=== PATIENT | female | born 1960 | race Caucasian/White ===

== ENCOUNTER 2019-05-09 15:00 | Outpatient (RCR) | payer MEDICARE, SELFPAY ==
--- NOTE | 2019-03-06 13:14 | HP.PTEVAL ---
Patient's Visit Information ISABELA LOZANO is a 58 year old F referred to Physical Therapy by SHIN ALEX with a diagnosis of recurrent falls, brain tumor. Date of Evaluation: 03/06/19 Physical Therapist: Tim Jones, ROSAT, OCS, CSCS - Visit Plan Frequency: 2x /Week Duration: 4-6 Weeks Plan: 2x/week for 4-6 weeks for. 1. LE and postural strength teaching HEP to do at home I. 2. Balance exercises for functional, steps, VOR, ec, foam. - Subjective Findings: Not sure why she is back here. Falling alot. Not sure why. No dizzyness. No unusual numbness in LE. No AD needed. Last fall was two days ago, not sure what happened. Sleeps OK. Activity is sitting around all day. No regular exercises then says she walks daily but not sure how long. Not employed. Had brain tumor 2002 adn 2003. Been falling ever since. Does not want to use cane or walker. Has boat and falls on it when they are cruising around [place]. - Objective Walks with slightly wide MARIANO but I on firm flat surface with light. Trasnfers I without UE. Steps require handrail but can go reciprocally. VOR walking is very challenging. R LE strength adn UE strength 4-, 4/5 L. Full aROM LE adn UE. C/s aROM WFL adn painfree. Sensation LE WNL to gross light touch. Coordination to reciprocal toe and heel tap minor defictis. Heel to kirkpatrick is good. - Balance Scores Functional Gait Assessment Score: 22 % Disability: 26.6700 CATSIB Score (Max score 120 seconds): 94 - Goals Goal 1:: I approp HEP for LE/postural strength and balance. Goal Time Frame: 4-6 Weeks Goal 2:: FGA to reduce fall risk. Goal Time Frame: 4-6 Weeks Goal 3:: Patient walk with head turns and nods VOR without LOB and ec without LOB. Goal Time Frame: 4-6 Weeks Goal 4:: Encourage pt to use a walking stick in dangerous situations of darkness and /or uneven gorund. Goal Time Frame: 4-6 Weeks - Rehabilitation Potential Physical Therapy Diagnosis: balance deficits and strength deficits leading to increase risk of falls. Rehabilitation Potential: Fair - Anticipated Interventions Patient/Client Instruction: Educate patient on: Condition, Plan of Care For the Purpose of:: To increase tolerance to activity/condition/position, To improve ability of physical actions for home/community/work/leisure Therapeutic Exercise to Include: Strength training, Balance training, Postural training, Gait and locomotor training For the Purpose of:: To increase tolerance to activity/condition/position, To improve ability of physical actions for home/community/work/leisure, To improve gait and locomotor functions, To improve safety Thank you for the opportunity to evaluate your patient. For Medicare and Medicare HMO plans, please review the plan of care and approve it. It will need to be FAXED BACK to us at [phone] for Medicare purposes. For Medicare only, by signing this I certify the plan of care. Please let me know if there are questions or concerns regarding this plan of care. Physician Signature: Date:
--- NOTE | 2019-04-12 17:01 | HP.PTREVAL_ITS ---
SHIN ALEX, It has been my pleasure to treat ISABELA LOZANO over the last 10 visits for recurrent falls, brain tumor. Please see the progress note below for an update on the physical therapy plan of care! Subjective: Fell off stationary bike and injured R eye. not sure why or how she fell off. Steps up and down are easier. No other falls. Feels like still needs to work on getting on and off the boat. Stepping off dock onto boat over the water is scary and challenging. Doing row, marching, hr/tr, lateral step overs. Objective/Function: FGA similar to initial visit however strength going up and down steps improved. Descending steps still very scary for patient. Also has trouble stepping over object to different level. Also vertical head movements and foam stance still tough. Appropriate to continue toward upper level balance goals with fair prognosis. Plan Plan: 2x/week for 4 weeks . Pt to do strengthening at home. Please focus in PT on. 1. foam balance. 2. head movement balance. 3. step over object onto different level. 4. descending steps without UE. Goals Goal 1:: I approp HEP for LE/postural strength and balance. Goal Time Frame: 4-6 Weeks Goal Progress: strength Goal 2:: FGA to reduce fall risk. Goal Time Frame: 4-6 Weeks Goal Progress: needs focus Goal 3:: Patient walk with head turns and nods VOR without LOB and ec without LOB. Goal Time Frame: 4-6 Weeks Goal Progress: Progressing Goal 4:: Encourage pt to use a walking stick in dangerous situations of darkness and /or uneven gorund. Goal Time Frame: 4-6 Weeks Goal Progress: not desired anymore. Anticipated Interventions Patient/Client Instruction: Educate patient on: Condition, Plan of Care For the Purpose of:: To increase tolerance to activity/condition/position, To improve ability of physical actions for home/community/work/leisure Therapeutic Exercise to Include: Strength training, Balance training, Postural training, Gait and locomotor training For the Purpose of:: To increase tolerance to activity/condition/position, To improve ability of physical actions for home/community/work/leisure, To improve gait and locomotor functions, To improve safety Please do not hesitate to contact me at [phone] by phone or Fax: if you have questions or concerns regarding this new plan of care! Sincerely, Tim Jones, DPT, OCS, CSCS
--- NOTE | 2019-05-09 15:15 | HP.PTDCSUM ---
HP - PT D/C Summary It has been my pleasure to treat ISABELA LOZANO under orders from SHIN ALEX, for the diagnosis of recurrent falls, brain tumor for a total of 17 visit(s). Discharge Date: 05/09/19 Please see the following information for a summary of their discharge status. - Subjective Subjective: Climbed on boat sideways without issue. Still doesn't like forward and backward. Steps don't feel great. Has skinny steps to basement with railing and goes sideways. Doing HEP daily. - Overall Improvement % Improvement: 90 - Objective Objective/Function: +5 on FGA. Steps reciprocally ascending without rail, descending requires rail for confidence. Stepping over object fairly easy. Pt happy with progress and much better balance. - Goals Goal 1:: I approp HEP for LE/postural strength and balance. Goal Progress: Goal Met Goal 2:: FGA to reduce fall risk. Goal Progress: Goal Met Goal 3:: Patient walk with head turns and nods VOR without LOB and ec without LOB. Goal Progress: Goal Met Goal 4:: Encourage pt to use a walking stick in dangerous situations of darkness and /or uneven gorund. Goal Progress: not desired anymore. - Plan Plan: D/C - D/C Information Discharge Comments: Pt doing well and climbing on boat with confidence. Much better baalnce and will continue via HEP. If there are questions or concerns regarding this patient's physical therapy, please feel free to call me at [phone]. Thank you for the referral of this patient. Sincerely, Tim Jones, DPT, OCS, CSCS
== END 2019-05-09 19:00 | disposition home or self-care (01) ==
LOC: PT 15:00
PROVIDERS: Family Provider Family Medicine; PCP Family Medicine
DX: R26.9 Unspecified abnormalities of gait and mobility (principal); R29.6 Repeated falls; Z87.898 Personal history of other specified conditions
CPT/HCPCS: 97110; 97116; 97162; 97530

== ENCOUNTER 2022-09-14 09:30 | Outpatient (RCR) | payer MEDICARE, SELFPAY ==
[2022-08-17 09:45] VITALS: BP 122/72; PULSE 107; RESP 16; TEMP 36.2; BMI 22.2
--- NOTE | 2022-08-17 12:52 | PCM.WC.HP ---
History of Present Illness Date of Service: 08/17/22 Chief Complaint: Traumatic wound of the right leg History of Wound: This is a 61-year-old female who presents with a traumatic wound on her right medial leg. The injury occurred on August 08, 2022. The patient had a mishap while using a treadmill. She fell, impacting the medial aspect of her right medial leg, just below the knee. She sustained a penetrating injury and has been treated by her primary care physician since that time. She has most recently been using Silvadene topically on a daily basis. She denies fevers, sweats, and chills. Antibiotics have not been prescribed. The wound has failed to show improvement since it occurred. 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 Home Medications armodafinil 250 mg tablet 250 mg PO DAILY 08/17/22 [History Last Taken Unknown] Surgical History History of brain surgery History of cholecystectomy History of total abdominal hysterectomy [facility] Social History Smoking Status: Never smoker Vital Signs Vital Signs Vital Signs: 08/17/22 09:45 Temperature 97.2 F L Temperature Source Temporal Pulse Rate 107 H Respiratory Rate 16 Blood Pressure 122/72 H Blood Pressure Mean 88 Blood Pressure Source Monitor Blood Pressure Position Sitting Blood Pressure Location Left Arm Oxygen Delivery Method Room Air Weight Weight: 140 lb Body Mass Index (BMI) 22.2 Physical Exam Const alert, oriented x3, no apparent distress, average body habitus and well nourished Constitutional Narrative: The patient is alert and oriented. She appears to be cognitively intact. However, an expressive speech aphasia is identified. General Appearance: cooperative, comfortable, well kempt and well developed Orientation / Consciousness: awake, oriented to person, oriented to place and oriented to time HEENT normocephalic and head/scalp atraumatic Head and Scalp: normal to inspection, normocephalic and atraumatic External Ear: external ears normal Eyes PERRL and EOMs intact bilaterally General Eye: normal appearance of both eyes Resp normal respiratory effort, normal air movement, no retractions and no use of accessory muscles Effort and Inspection: able to speak in complete sentences Extremity no calf tenderness General Extremity: Negative for clubbing or cyanosis Skin Wound Narrative: No significant swelling or edema are noted in the patient's lower extremities. A large necrotic wound is noted on the medial aspect of the right lower extremity, just below the knee. Dimensions are documented elsewhere. There is no obvious sign of infection or cellulitis. There is a large amount of nonviable and gangrenous material. There is no drainage. There is no odor. Neuro oriented x3, CN's II-XII intact bilaterally and moves all extremities Neuro Narrative: An expressive speech aphasia is noted. Sensorium / Orientation: awake, alert, oriented to person, oriented to place and oriented to time Psych Appearance: grossly normal and appropriate Attitude: calm Activity / Motor Behavior: appropriate eye contact Speech: normal speech Mood & Affect: euthymic mood Thought Process: normal thought process Thought Content: normal thought content Attention / Concentration: attention grossly intact Debridement Note Debridement Note Wound debrided: Right medial lower extremity Laterality: Right Type of Debridement: Excisional debridement Anesthesia Used: 5% Lidocaine Gel and Cetacaine Depth: Down to and including healthy tissue and in the subcutaneous layer Percentage of wound debrided: 100 Instrument Used: 5mm curette and #15 blade Severity: Fat Layer Exposed Amount of bleeding with debridement: Mild Bleeding Controlled with: Compression and gauze Patient tolerated procedure: Patient tolerated procedure well Debridement Free Text: A large amount of frankly necrotic and gangrenous material was noted to involve 95% of the wound. Peripherally, there is a ring of pink, healthy, granulation tissue. An effort was made using a 5 mm curette to remove as much of the necrotic and nonviable material as possible. However, the gangrenous material was resistant to removal. Therefore, a 15 scalpel blade was used to score the necrotic portion of the wound, anticipating that collagenase Santyl would be used as an enzymatic debriding agent, facilitating the penetration of the gangrenous cap. Post-Debridement Measurements and Additional Note: Post-Debridement Measurements/Treatment JODI - Nurse 1 - General Ulcer Assessment Start: 08/17/22 09:45 Freq: Status: Active Protocol: JERICHO Activity Type Activity Date Activity User E-sign Co-sign Detail Recorded Client Recorded Date Recorded By Document 08/17/22 09:45 MW [id number] 08/17/22 10:07 08/17/22 09:45 WC - Today's Visit Information Type of service Follow-up Visit (Physician/GROUND SERVICES INSTRUCTOR ) Arrival Mode Ambulatory Transfer Assistance None Accompanied by Patient Identification Verified (Name & Yes ) Patient Requires Transmission-Based No Precautions Height and Weight Height 5 ft 6.5 in Weight 140 lb Weight in Pounds 140.0 lbs Weight Measurement Method Stated by Patient Body Mass Index (BMI) 22.2 BMI Classification Normal BSA - Marcie 1.73 Vital Signs Temperature (97.8 F-99.1 F) 97.2 F L Temperature Source Temporal Pulse Rate (60-100) 107 H Pulse Location Monitor Respiratory Rate (12-18) 16 Respiratory rate source Observation Oxygen Delivery Method Room Air Blood Pressure (90/60-120/80) 122/72 H Blood Pressure Mean 88 Source Monitor Position Sitting Blood Pressure Location Left Arm History Since Last Visit- (Skip if this is Patient's initial visit) Left Footwear Regular Shoe Right Footwear Regular Shoe Pain Scale: 0-10 Numeric Is Patient Pain Free? Yes Communication Assessment Preferred language Norwegian Manager Professional Development Required No Able to Read Yes Able to Write Yes Communication Tools None Caregiver Communication Skills No Impairment Impairment Right Hearing Abillity Normal Left Hearing Abillity Normal Visual Assistive Devices None Teaching Assessment Preferences Verbal,Written, Audio/Visual, Demonstration Barriers to Learning None Readiness To Learn Excellent Willingness to Engage in Self Management High Activies Readiness to Engage in Self Management High Activities Anxiety Level Calm Cooperation Cooperative Perception Coherent Interest in Health Problem Asks Questions Education Importance Denies Need Does Patient Smoke tobacco or other Yes substances Smoking Status Never smoker Is Patient Diabetic No Functional Assessment Recent Decline in Ability to Perform Denies Any Declines Culture/Episcopal/Pretzel Cooker Cultural/Episcopal Needs that may affect No Treatment Plan Would you allow our hospital nursing education specialist to No meet you for the purpose of spiritual/ emotional support? Pretzel Cooker to contact place of methodist No Teaching: Wound Center Dressing Your Wound -Person Taught Patient -Teaching Method Discussion -Response to teaching Verbalize understanding - Nurse 1 - General Ulcer Measurement Start: 08/17/22 09:45 Freq: Status: Active Protocol: Activity Type Activity Date Activity User E-sign Co-sign Detail Recorded Client Recorded Date Recorded By Document 08/17/22 09:45 MW [id number] 08/17/22 10:07 MW 08/17/22 09:45 Wound Center Nurse 1 #1 right medial LE -Combined with other wound No -Current Size (cm) - Length 6.5 -Current Size (cm) - Width 8.5 -Current Size (cm) - Depth 0.1 -Total Square Cm 55.25 -Date of Last Picture (Recall this 08/17/22 field) -Photo Taken Yes -Epithelialization None Present -Tunneling No -Undermining/Tunneling No -Circular Undermining No -Exudate Amt Medium -Exudate Type Serosanguineous -Wound Margin Flat & Intact -Granulation Amt Small (1-33%) -Granulation Quality Meyers -Slough/Fibrin Yes -Necrosis Amt Large (67-100%) -Necrotic Tissue Type Adherent Slough -Structure Exposed N/A -Texture (Krupa-wound Skin Appearance) Assessed, Localized Edema -Moisture (Krupa-wound Skin Appearance) No Abnormality, Assessed -Color (Krupa-wound Skin Appearance) Assessed, Erythema -Temperature (Krupa-wound Skin No Abnormality Appearance) (Pt Warm) -Tenderness on Palpation (Krupa-wound Yes Skin Appearance) -Ulcer Cleansing Rinsed/ Irrigated with Saline -Foul Odor after Cleansing No -Anesthetic Used 4% Lidocaine Solution Lower Limb Edema Present No Right Calf (cm) 37.0 Right Ankle (cm) 21.5 Left Calf (cm) 36.5 Left Ankle (cm) 21.0 WC - Nurse 2 - General Ulcer CM Notes Start: 08/17/22 09:45 Freq: Status: Active Protocol: Activity Type Activity Date Activity User E-sign Co-sign Detail Recorded Client Recorded Date Recorded By Document 08/17/22 12:10 MARILIN [id number] 08/17/22 12:11 PL 08/17/22 12:10 Wound Center Nurse 2 #1 right medial LE -Time 10:21 -Correct Patient Yes -Correct Side, Site, Position Yes -Correct Procedure Yes -Procedure Performed Yes -Type of Procedure Debridement -Clinical Debridement Subcutaneous -Tissue Removed Subcutaneous -Post Debridement (cm) - Length 6.5 -Post Debridement (cm) - Width 8.5 -Post Debridement (cm) - Depth 0.1 -Total Square (Post) (cm) 55.25 -Area of Debridement (cm) - Length 6.5 -Area of Debridement (cm) - Width 8.5 -Total Square (Area) (cm) 55.25 -Tunneling No -Undermining/Tunneling No -Circular Undermining No -Wound/Ulcer Outcome Not Healed -Ulcer Cleansing Rinsed/ Irrigated with Saline -Foul Odor after Cleansing No -Bioengineered Tissue No -Bleeding Controlled with Pressure -Treatment Response Procedure Tolerated Well -Debridement - Subq, 1st 20sq cm Yes -Debridement, SubQ, ea addt'l 20sq cm 2 or part thereof Pain Scale: 0-10 Numeric Is Patient Pain Free? Yes - Nurse 3 - General Ulcer D/C NN Start: 08/17/22 09:45 Freq: Status: Active Protocol: Activity Type Activity Date Activity User E-sign Co-sign Detail Recorded Client Recorded Date Recorded By Document 08/17/22 10:34 DL Desktop 08/17/22 10:37 DL 08/17/22 10:34 Wound Care Nurse 3 #1 right medial LE -Ulcer Cleansing Rinsed/ Irrigated with Saline -Foul Odor after Cleansing No -Other Dressing hydrogel today in clinic -Primary Dressing Covered/Secured with Dry Gauze & Roll Gauze, Secured with Tape Treatment Response Procedure Tolerated Well Pain Scale: 0-10 Numeric Is Patient Pain Free? Yes WC - Visit Discharge Discharge Condition Stable Ambulatory Status Ambulatory Transportation Private Auto Notes: Pt to obtain Santyl and start when available at home. Assessment/Plan Assessment/Plan (1) Leg wound, right: CODE(S): S81.801A - Unspecified open wound, right lower leg, initial encounter QUALIFIERS: Encounter type: initial encounter Qualified Code(s): S81.801A - Unspecified open wound, right lower leg, initial encounter (2) Necrosis: CODE(S): I96 - Gangrene, not elsewhere classified (3) GERD (gastroesophageal reflux disease): CODE(S): K21.9 - Gastro-esophageal reflux disease without esophagitis (4) Arthritis: CODE(S): M19.90 - Unspecified osteoarthritis, unspecified site (5) Asthma: CODE(S): J45.909 - Unspecified asthma, uncomplicated (6) History of brain cancer in adulthood: CODE(S): Z85.841 - Personal history of malignant neoplasm of brain (7) History of malignant neoplasm of brain in adulthood: CODE(S): Z85.841 - Personal history of malignant neoplasm of brain (8) History of seizures: CODE(S): Z87.898 - Personal history of other specified conditions (9) Expressive aphasia: CODE(S): R47.01 - Aphasia (10) TMJ (temporomandibular joint disorder): CODE(S): M26.609 - Unspecified temporomandibular joint disorder, unspecified side (11) 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 Upon presentation, a large amount of necrotic and gangrenous material was noted to cover the traumatic wound. There is no evidence of infection or cellulitis. Initial debridement attempted to remove as much of the frankly necrotic and nonviable material as possible. However, the gangrenous cap was very resistant to mechanical removal by means of debridement. Therefore, the gangrene was scored with a scalpel blade, to enhance the penetration of enzymatic debridement. We are to implement the use of collagenase Santyl topically, which will be applied on a daily basis. Patient has been provided a prescription for such, with the appropriate instructions for application. The patient is to return in 1 week for reassessment. The goal will be to remove the necrotic and gangrenous material at the surface of the patient's wound, following which other options for enhancing wound healing will be considered. Total time: 55 minutes
[2022-08-24 09:18] VITALS: BP 113/56; PULSE 80; TEMP 36.4; BMI 22.2
--- NOTE | 2022-08-24 09:29 | PCM.WC.HP ---
History of Present Illness Date of Service: 08/24/22 Chief Complaint: Traumatic wound of the right leg History of Wound: This is a 61-year-old female who presents with a traumatic wound on her right medial leg. The injury occurred on August 08, 2022. The patient had a mishap while using a treadmill. She fell, impacting the medial aspect of her right medial leg, just below the knee. She sustained a penetrating injury and has been treated by her primary care physician since that time. She had most recently been using Silvadene topically on a daily basis. She denies fevers, sweats, and chills. Antibiotics have not been prescribed. The wound failed to show improvement since it occurred. 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 Home Medications armodafinil 250 mg tablet 250 mg PO DAILY 08/17/22 [History Last Taken Unknown] Surgical History History of brain surgery History of cholecystectomy History of total abdominal hysterectomy Hx of LASIK Social History Smoking Status: Never smoker Vital Signs Vital Signs Vital Signs: 08/24/22 09:18 Temperature 97.5 F L Temperature Source Oral Pulse Rate 80 Blood Pressure 113/56 L Blood Pressure Mean 75 Blood Pressure Source Monitor Blood Pressure Position Semi-Fowlers Blood Pressure Location Right Arm Weight Weight: 140 lb Body Mass Index (BMI) 22.2 Physical Exam Const alert, oriented x3, no apparent distress, average body habitus and well nourished Constitutional Narrative: The patient is alert and oriented. She appears to be cognitively intact. However, an expressive speech aphasia is identified. General Appearance: cooperative, comfortable, well kempt and well developed Orientation / Consciousness: awake, oriented to person, oriented to place and oriented to time HEENT normocephalic and head/scalp atraumatic Head and Scalp: normal to inspection, normocephalic and atraumatic External Ear: external ears normal Eyes PERRL and EOMs intact bilaterally General Eye: normal appearance of both eyes Resp normal respiratory effort, normal air movement, no retractions and no use of accessory muscles Effort and Inspection: able to speak in complete sentences Extremity no calf tenderness General Extremity: Negative for clubbing or cyanosis Skin Wound Narrative: No significant swelling or edema are noted in the patient's lower extremities. A large necrotic wound is noted on the medial aspect of the right lower extremity, just below the knee. Dimensions are documented elsewhere. There is no obvious sign of infection or cellulitis. There is a large amount of nonviable and gangrenous material, yellow in color. There is no drainage. There is no odor. Neuro oriented x3, CN's II-XII intact bilaterally and moves all extremities Neuro Narrative: An expressive speech aphasia is noted. Sensorium / Orientation: awake, alert, oriented to person, oriented to place and oriented to time Psych Appearance: grossly normal and appropriate Attitude: calm Activity / Motor Behavior: appropriate eye contact Speech: normal speech Mood & Affect: euthymic mood Thought Process: normal thought process Thought Content: normal thought content Attention / Concentration: attention grossly intact Debridement Note Debridement Note Wound debrided: Right medial lower extremity Laterality: Right Type of Debridement: Excisional debridement Anesthesia Used: 5% Lidocaine Gel and Cetacaine Depth: Down to and including healthy tissue and in the subcutaneous layer Percentage of wound debrided: 50 Instrument Used: 5mm curette Severity: Fat Layer Exposed Amount of bleeding with debridement: Mild Bleeding Controlled with: Compression and gauze Patient tolerated procedure: Patient tolerated procedure well Debridement Free Text: A large amount of frankly necrotic and gangrenous material is noted to involve 98% of the wound. Peripherally, there is a ring of pink, healthy, granulation tissue. An effort was made using a 5 mm curette to remove as much of the necrotic and nonviable material as possible. However, the gangrenous material was resistant to removal. In addition, due to the patient's neurological impairments, she vastly overreacted to the discomfort encountered during the debridement process, and was withdrawing from the curette, and batting away attempts at debridement. Therefore, efforts at a sufficient debridement and removal of the necrotic material were impaired. The necrotic material is extremely adherent, and not easily removed. Post-Debridement Measurements and Additional Note: Post-Debridement Measurements/Treatment WC - Nurse 1 - General Ulcer Assessment Start: 08/17/22 09:45 Freq: Status: Active Protocol: WC.LOWEXT Activity Type Activity Date Activity User E-sign Co-sign Detail Recorded Client Recorded Date Recorded By Document 08/17/22 09:45 MW [id number] 08/17/22 10:07 MW Document 08/24/22 09:18 KR [id number] 08/24/22 09:20 KR 08/17/22 08/24/22 09:45 09:18 WC - Today's Visit Information Type of service Follow-up Visit Follow-up Visit (Physician/REAL ESTATE VALUER (Physician/REAL ESTATE VALUER ) ) Arrival Mode Ambulatory Ambulatory Transfer Assistance None Accompanied by Patient Identification Verified (Name & Yes Yes ) Patient Requires Transmission-Based No Precautions Height and Weight Height 5 ft 6.5 in Weight 140 lb Weight in Pounds 140.0 lbs Weight Measurement Method Stated by Patient Body Mass Index (BMI) 22.2 22.2 BMI Classification Normal Normal BSA - Marcie 1.73 Vital Signs Temperature (97.8 F-99.1 F) 97.2 F L 97.5 F L Temperature Source Temporal Oral Pulse Rate (60-100) 107 H 80 Pulse Location Monitor Monitor Respiratory Rate (12-18) 16 Respiratory rate source Observation Oxygen Delivery Method Room Air Blood Pressure (90/60-120/80) 122/72 H 113/56 L Blood Pressure Mean 88 75 Source Monitor Monitor Position Sitting Semi-Fowlers Blood Pressure Location Left Arm Right Arm History Since Last Visit- (Skip if this is Patient's initial visit) Have you changed medications since your No last visit? Any new allergies or adverse reactions No Had a fall/change in ADL's that may No increase risk of falls Signs or symptoms of abuse and/or No neglect since last visit Have you been in the hospital since your No last visit? Has dressing in place as prescribed Yes Has compression in place as prescribed No Has offloadiing in place as prescribed N/A Experienced any changes in pain level or No management Left Footwear Regular Shoe Regular Shoe Right Footwear Regular Shoe Regular Shoe Pain Scale: 0-10 Numeric Is Patient Pain Free? Yes Yes Communication Assessment Preferred language [facility] Re[facility] Required No Able to Read Yes Able to Write Yes Communication Tools None Caregiver Communication Skills No Impairment Impairment Right Hearing Abillity Normal Left Hearing Abillity Normal Visual Assistive Devices None Teaching Assessment Preferences Verbal,Written, Audio/Visual, Demonstration Barriers to Learning None Readiness To Learn Excellent Willingness to Engage in Self Management High Activies Readiness to Engage in Self Management High Activities Anxiety Level Calm Cooperation Cooperative Perception Coherent Interest in Health Problem Asks Questions Education Importance Denies Need Does Patient Smoke tobacco or other Yes substances Smoking Status Never smoker Is Patient Diabetic No Functional Assessment Recent Decline in Ability to Perform Denies Any Declines Culture/Uatsdin/Video Game Script Writer Cultural/Uatsdin Needs that may affect No Treatment Plan Would you allow our hospital printed circuit boards solder leveler to No meet you for the purpose of spiritual/ emotional support? Video Game Script Writer to contact place of confucianism No Teaching: Wound Center Dressing Your Wound -Person Taught Patient -Teaching Method Discussion -Response to teaching Verbalize understanding WC - Nurse 1 - General Ulcer Measurement Start: 08/17/22 09:45 Freq: Status: Active Protocol: Activity Type Activity Date Activity User E-sign Co-sign Detail Recorded Client Recorded Date Recorded By Document 08/17/22 09:45 MW [id number] 08/17/22 10:07 MW Document 08/24/22 09:18 KR [id number] 08/24/22 09:20 KR 08/17/22 08/24/22 09:45 09:18 Wound Center Nurse 1 #1 right medial LE -Combined with other wound No -Current Size (cm) - Length 6.5 6 -Current Size (cm) - Width 8.5 9.5 -Current Size (cm) - Depth 0.1 0.2 -Total Square Cm 55.25 57.0 -Date of Last Picture (Recall this 08/17/22 field) -Photo Taken Yes -Epithelialization None Present -Tunneling No -Undermining/Tunneling No -Circular Undermining No -Exudate Amt Medium Large -Exudate Type Serosanguineous Yellow/Green -Wound Margin Flat & Intact Distinct, Outline Attached -Granulation Amt Small (1-33%) Large (67-100%) -Granulation Quality [place] -Slough/Fibrin Yes -Necrosis Amt Large (67-100%) Large (67-100%) -Necrotic Tissue Type Adherent Slough Adherent Slough -Structure Exposed N/A -Texture (Krupa-wound Skin Appearance) Assessed, Assessed, Localized Edema Scarring -Moisture (Krupa-wound Skin Appearance) No Abnormality, No Abnormality, Assessed Assessed -Color (Krupa-wound Skin Appearance) Assessed, No Abnormality, Erythema Assessed -Temperature (Krupa-wound Skin No Abnormality No Abnormality Appearance) (Pt Warm) (Pt Warm) -Tenderness on Palpation (Krupa-wound Yes No Skin Appearance) -Ulcer Cleansing Rinsed/ Rinsed/ Irrigated with Irrigated with Saline Saline -Foul Odor after Cleansing No No -Anesthetic Used 4% Lidocaine 4% Lidocaine Solution Solution,5% Lidocaine Gel Lower Limb Edema Present No Right Calf (cm) 37.0 Right Ankle (cm) 21.5 Left Calf (cm) 36.5 Left Ankle (cm) 21.0 WC - Nurse 2 - General Ulcer CM Notes Start: 08/17/22 09:45 Freq: Status: Active Protocol: Activity Type Activity Date Activity User E-sign Co-sign Detail Recorded Client Recorded Date Recorded By Document 08/17/22 12:10 PL [id number] 08/17/22 12:11 PL 08/17/22 12:10 Wound Center Nurse 2 -Time 10:21 -Correct Patient Yes -Correct Side, Site, Position Yes -Correct Procedure Yes -Procedure Performed Yes -Type of Procedure Debridement -Clinical Debridement Subcutaneous -Tissue Removed Subcutaneous -Post Debridement (cm) - Length 6.5 -Post Debridement (cm) - Width 8.5 -Post Debridement (cm) - Depth 0.1 -Total Square (Post) (cm) 55.25 -Area of Debridement (cm) - Length 6.5 -Area of Debridement (cm) - Width 8.5 -Total Square (Area) (cm) 55.25 -Tunneling No -Undermining/Tunneling No -Circular Undermining No -Wound/Ulcer Outcome Not Healed -Ulcer Cleansing Rinsed/ Irrigated with Saline -Foul Odor after Cleansing No -Bioengineered Tissue No -Bleeding Controlled with Pressure -Treatment Response Procedure Tolerated Well -Debridement - Subq, 1st 20sq cm Yes -Debridement, SubQ, ea addt'l 20sq cm 2 or part thereof Pain Scale: 0-10 Numeric Is Patient Pain Free? Yes - Nurse 3 - General Ulcer D/C NN Start: 08/17/22 09:45 Freq: Status: Active Protocol: Activity Type Activity Date Activity User E-sign Co-sign Detail Recorded Client Recorded Date Recorded By Document 08/17/22 10:34 DL Desktop 08/17/22 10:37 DL 08/17/22 10:34 Wound Care Nurse 3 #1 right medial LE -Ulcer Cleansing Rinsed/ Irrigated with Saline -Foul Odor after Cleansing No -Other Dressing hydrogel today in clinic -Primary Dressing Covered/Secured with Dry Gauze & Roll Gauze, Secured with Tape Treatment Response Procedure Tolerated Well Pain Scale: 0-10 Numeric Is Patient Pain Free? Yes WC - Visit Discharge Discharge Condition Stable Ambulatory Status Ambulatory Transportation Private Auto Notes: Pt to obtain Santyl and start when available at home. Assessment/Plan Assessment/Plan (1) Leg wound, right: CODE(S): S81.801A - Unspecified open wound, right lower leg, initial encounter QUALIFIERS: Encounter type: initial encounter Qualified Code(s): S81.801A - Unspecified open wound, right lower leg, initial encounter (2) Necrosis: CODE(S): I96 - Gangrene, not elsewhere classified (3) GERD (gastroesophageal reflux disease): CODE(S): K21.9 - Gastro-esophageal reflux disease without esophagitis (4) Arthritis: CODE(S): M19.90 - Unspecified osteoarthritis, unspecified site (5) Asthma: CODE(S): J45.909 - Unspecified asthma, uncomplicated (6) History of brain cancer in adulthood: CODE(S): Z85.841 - Personal history of malignant neoplasm of brain (7) History of malignant neoplasm of brain in adulthood: CODE(S): Z85.841 - Personal history of malignant neoplasm of brain (8) History of seizures: CODE(S): Z87.898 - Personal history of other specified conditions (9) Expressive aphasia: CODE(S): R47.01 - Aphasia (10) TMJ (temporomandibular joint disorder): CODE(S): M26.609 - Unspecified temporomandibular joint disorder, unspecified side (11) 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 A large amount of necrotic and gangrenous material remains at the site of the traumatic wound. There is no evidence of infection or cellulitis. Attempts at debridement today were met with physical patient resistance, rendering a satisfactory debridement insurmountable. We are to continue the use of collagenase Santyl topically on a daily basis. The patient is to follow-up in 1 week for reassessment. Ultimately, if excisional debridements proved to be a challenge in the clinic setting, it may be necessary to consider a surgical debridement in the operating room setting, or adequate anesthesia can be provided for patient comfort purposes. This is a determination that will be made over the next several weeks. The goal will be to remove the necrotic and gangrenous material at the surface of the patient's wound, following which other options for enhancing wound healing will be possible. Total time: 29 minutes
--- NOTE | 2022-08-31 12:15 | PCM.WC.HP ---
History of Present Illness Date of Service: 08/31/22 Chief Complaint: Traumatic wound of the right leg History of Wound: This is a 61-year-old female who presented with a traumatic wound on her right medial leg. The injury occurred on August 08, 2022. The patient had a mishap while using a treadmill. She fell, impacting the medial aspect of her right leg, just below the knee. She sustained a penetrating injury and has been treated by her primary care physician since that time. She had most recently been using Silvadene topically on a daily basis. She denied fevers, sweats, and chills. Antibiotics had not been prescribed. The wound failed to show improvement since it occurred. 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 She appears to be cognitively intact. However, an expressive speech aphasia is identified. 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 General Appearance: cooperative, comfortable, well kempt and well developed Orientation / Consciousness: awake, oriented to person, oriented to place and oriented to time HEENT normocephalic and head/scalp atraumatic Head and Scalp: normal to inspection, normocephalic and atraumatic External Ear: external ears normal Eyes PERRL and EOMs intact bilaterally General Eye: normal appearance of both eyes Resp normal respiratory effort, normal air movement, no retractions and no use of accessory muscles Effort and Inspection: able to speak in complete sentences Extremity no calf tenderness General Extremity: Negative for clubbing or cyanosis Skin Wound Narrative: No significant swelling or edema are noted in the patient's lower extremities. A large necrotic wound is noted on the medial aspect of the right lower extremity, just below the knee. Dimensions are documented elsewhere. There is a large amount of nonviable and gangrenous material. There has been significant deterioration in the appearance of the wound within the last week. There is now a disagreeable odor, and a rim of erythema about the wound. Because of the appearance of the wound, and a large amount of necrotic and nonviable tissue, with odor, swab cultures have been obtained for aerobic and anaerobic bacterial growth. Neuro oriented x3, CN's II-XII intact bilaterally and moves all extremities Neuro Narrative: An expressive speech aphasia is noted. Sensorium / Orientation: awake, alert, oriented to person, oriented to place and oriented to time Psych Appearance: grossly normal and appropriate Attitude: calm Activity / Motor Behavior: appropriate eye contact Speech: normal speech Mood & Affect: euthymic mood Thought Process: normal thought process Thought Content: normal thought content Attention / Concentration: attention grossly intact Debridement Note Debridement Note Wound debrided: Right medial lower extremity Laterality: Right Type of Debridement: Excisional debridement Anesthesia Used: 5% Lidocaine Gel and Cetacaine Depth: Down to and including healthy tissue and in the subcutaneous layer Percentage of wound debrided: 100 and 50 Instrument Used: 5mm curette, Forceps and - (Scissors) Tissue Removed: Necrotic and nonviable tissue Severity: Fat Layer Exposed Amount of bleeding with debridement: Mild Bleeding Controlled with: Compression and gauze Patient tolerated procedure: Patient did not tolerate procedure well Debridement Free Text: A large amount of frankly necrotic and gangrenous material is noted to involve the entirety of the wound. Peripherally, there is a ring of cellulitis. An effort was made using a 5 mm curette to remove as much of the necrotic and nonviable material as possible. However, the gangrenous material was resistant to removal. As result, a forceps and scissors were selected for the purpose of excising as much of the necrotic and nonviable tissue as possible. Unfortunately, due to the patient's past history of brain malignancy and surgery, she is hyperreflexic, and does not respond and tolerate debridement here in the clinic setting. She grossly overreacts to the mere anticipation of the debridement process. She moves and withdraws with attempts to perform debridement. Therefore, efforts at a sufficient debridement and removal of the necrotic material are compromised in the clinic setting. The necrotic material is extremely adherent, and not easily removed. Post-Debridement Measurements and Additional Note: Post-Debridement Measurements/Treatment WC - Nurse 1 - General Ulcer Assessment Start: 08/17/22 09:45 Freq: Status: Active Protocol: WC.LOWEXT Activity Type Activity Date Activity User E-sign Co-sign Detail Recorded Client Recorded Date Recorded By Document 08/17/22 09:45 MW [id number] 08/17/22 10:07 MW Document 08/24/22 09:18 KR [id number] 08/24/22 09:20 KR 08/17/22 08/24/22 09:45 09:18 WC - Today's Visit Information Type of service Follow-up Visit Follow-up Visit (Physician/SENIOR CARE PROVIDER (Physician/SENIOR CARE PROVIDER ) ) Arrival Mode Ambulatory Ambulatory Transfer Assistance None Accompanied by Patient Identification Verified (Name & Yes Yes ) Patient Requires Transmission-Based No Precautions Height and Weight Height 5 ft 6.5 in Weight 140 lb Weight in Pounds 140.0 lbs Weight Measurement Method Stated by Patient Body Mass Index (BMI) 22.2 22.2 BMI Classification Normal Normal BSA - Marcie 1.73 Vital Signs Temperature (97.8 F-99.1 F) 97.2 F L 97.5 F L Temperature Source Temporal Oral Pulse Rate (60-100) 107 H 80 Pulse Location Monitor Monitor Respiratory Rate (12-18) 16 Respiratory rate source Observation Oxygen Delivery Method Room Air Blood Pressure (90/60-120/80) 122/72 H 113/56 L Blood Pressure Mean 88 75 Source Monitor Monitor Position Sitting Semi-Fowlers Blood Pressure Location Left Arm Right Arm History Since Last Visit- (Skip if this is Patient's initial visit) Have you changed medications since your No last visit? Any new allergies or adverse reactions No Had a fall/change in ADL's that may No increase risk of falls Signs or symptoms of abuse and/or No neglect since last visit Have you been in the hospital since your No last visit? Has dressing in place as prescribed Yes Has compression in place as prescribed No Has offloadiing in place as prescribed N/A Experienced any changes in pain level or No management Left Footwear Regular Shoe Regular Shoe Right Footwear Regular Shoe Regular Shoe Pain Scale: 0-10 Numeric Is Patient Pain Free? Yes Yes Communication Assessment Preferred language Bulgarian Cutter Grind Tool Technician Required No Able to Read Yes Able to Write Yes Communication Tools None Caregiver Communication Skills No Impairment Impairment Right Hearing Abillity Normal Left Hearing Abillity Normal Visual Assistive Devices None Teaching Assessment Preferences Verbal,Written, Audio/Visual, Demonstration Barriers to Learning None Readiness To Learn Excellent Willingness to Engage in Self Management High Activies Readiness to Engage in Self Management High Activities Anxiety Level Calm Cooperation Cooperative Perception Coherent Interest in Health Problem Asks Questions Education Importance Denies Need Does Patient Smoke tobacco or other Yes substances Smoking Status Never smoker Is Patient Diabetic No Functional Assessment Recent Decline in Ability to Perform Denies Any Declines Culture/Orthodoxy/Vascular Ultrasound Technologist Cultural/Orthodoxy Needs that may affect No Treatment Plan Would you allow our [facility] stage rigger to No meet you for the purpose of spiritual/ emotional support? Vascular Ultrasound Technologist to contact place of scientologist No Teaching: Wound Center Dressing Your Wound -Person Taught Patient -Teaching Method Discussion -Response to teaching Verbalize understanding WC - Nurse 1 - General Ulcer Measurement Start: 08/17/22 09:45 Freq: Status: Active Protocol: Activity Type Activity Date Activity User E-sign Co-sign Detail Recorded Client Recorded Date Recorded By Document 08/17/22 09:45 [id number] 08/17/22 10:07 MW Document 08/24/22 09:18 KR [id number] 08/24/22 09:20 KR 08/17/22 08/24/22 09:45 09:18 Wound Center Nurse 1 #1 right medial LE -Combined with other wound No -Current Size (cm) - Length 6.5 6 -Current Size (cm) - Width 8.5 9.5 -Current Size (cm) - Depth 0.1 0.2 -Total Square Cm 55.25 57.0 -Date of Last Picture (Recall this 08/17/22 field) -Photo Taken Yes -Epithelialization None Present -Tunneling No -Undermining/Tunneling No -Circular Undermining No -Exudate Amt Medium Large -Exudate Type Serosanguineous Yellow/Green -Wound Margin Flat & Intact Distinct, Outline Attached -Granulation Amt Small (1-33%) Large (67-100%) -Granulation Quality [place] -Slough/Fibrin Yes -Necrosis Amt Large (67-100%) Large (67-100%) -Necrotic Tissue Type Adherent Slough Adherent Slough -Structure Exposed N/A -Texture (Krupa-wound Skin Appearance) Assessed, Assessed, Localized Edema Scarring -Moisture (Krupa-wound Skin Appearance) No Abnormality, No Abnormality, Assessed Assessed -Color (Krupa-wound Skin Appearance) Assessed, No Abnormality, Erythema Assessed -Temperature (Krupa-wound Skin No Abnormality No Abnormality Appearance) (Pt Warm) (Pt Warm) -Tenderness on Palpation (Krupa-wound Yes No Skin Appearance) -Ulcer Cleansing Rinsed/ Rinsed/ Irrigated with Irrigated with Saline Saline -Foul Odor after Cleansing No No -Anesthetic Used 4% Lidocaine 4% Lidocaine Solution Solution,5% Lidocaine Gel Lower Limb Edema Present No Right Calf (cm) 37.0 Right Ankle (cm) 21.5 Left Calf (cm) 36.5 Left Ankle (cm) 21.0 WC - Nurse 2 - General Ulcer CM Notes Start: 08/17/22 09:45 Freq: Status: Active Protocol: Activity Type Activity Date Activity User E-sign Co-sign Detail Recorded Client Recorded Date Recorded By Document 08/17/22 12:10 PL [id number] 08/17/22 12:11 PL Document 08/24/22 11:37 PL [id number] 08/24/22 11:38 PL Edit Result 08/24/22 11:37 PL (1) [id number] 08/25/22 07:37 PL Document 08/31/22 11:47 PL [id number] 08/31/22 11:48 PL (1) #1 right medial LE - Time => 09:45 - Correct Patient => Yes - Correct Side, Site, Position => Yes - Correct Procedure => Yes - Procedure Performed No => Yes - Type of Procedure => Debridement - Clinical Debridement => Subcutaneous - Tissue Removed => Subcutaneous - Post Debridement (cm) - Length => 6.5 - Post Debridement (cm) - Width => 8.5 - Post Debridement (cm) - Depth => 0.1 - Total Square (Post) (cm) => 55.25 - Area of Debridement (cm) - Length => 6.5 - Area of Debridement (cm) - Width => 8.5 - Total Square (Area) (cm) => 55.25 - Tunneling => No - Undermining/Tunneling => No - Circular Undermining => No - Wound/Ulcer Outcome => Not Healed - Ulcer Cleansing => Rinsed/Irrigated => with Saline - Bioengineered Tissue => No - Bleeding Controlled with => Pressure - Treatment Response => Procedure => Tolerated Well - Debridement - Subq, 1st 20sq cm => Yes - Debridement, SubQ, ea addt'l 20sq cm => 2 or part thereof 08/17/22 08/24/22 08/31/22 12:10 11:37 11:47 Wound Center Nurse 2 #1 right medial LE -Time 10:21 09:45 09:39 -Correct Patient Yes Yes Yes -Correct Side, Site, Position Yes Yes Yes -Correct Procedure Yes Yes Yes -Procedure Performed Yes Yes Yes -Type of Procedure Debridement Debridement Debridement -Clinical Debridement Subcutaneous Subcutaneous Subcutaneous -Tissue Removed Subcutaneous Subcutaneous Subcutaneous -Post Debridement (cm) - Length 6.5 6.5 6.5 -Post Debridement (cm) - Width 8.5 8.5 8.5 -Post Debridement (cm) - Depth 0.1 0.1 0.2 -Total Square (Post) (cm) 55.25 55.25 55.25 -Area of Debridement (cm) - Length 6.5 6.5 6.5 -Area of Debridement (cm) - Width 8.5 8.5 8.5 -Total Square (Area) (cm) 55.25 55.25 55.25 -Tunneling No No No -Undermining/Tunneling No No No -Circular Undermining No No No -Wound/Ulcer Outcome Not Healed Not Healed Not Healed -Ulcer Cleansing Rinsed/ Rinsed/ Rinsed/ Irrigated with Irrigated with Irrigated with Saline Saline Saline -Foul Odor after Cleansing No No -Bioengineered Tissue No No No -Bleeding Controlled with Pressure Pressure Pressure -Treatment Response Procedure Procedure Procedure Tolerated Well Tolerated Well Tolerated Well -Debridement - Subq, 1st 20sq cm Yes Yes Yes -Debridement, SubQ, ea addt'l 20sq cm 2 2 2 or part thereof Pain Scale: 0-10 Numeric Is Patient Pain Free? Yes Yes Yes WC - Nurse 3 - General Ulcer D/C NN Start: 08/17/22 09:45 Freq: Status: Active Protocol: Activity Type Activity Date Activity User E-sign Co-sign Detail Recorded Client Recorded Date Recorded By Document 08/17/22 10:34 DL Desktop 08/17/22 10:37 DL Document 08/24/22 09:31 MW [id number] 08/24/22 09:34 MW Document 08/31/22 10:20 AK [id number] 08/31/22 10:21 AK 08/17/22 08/24/22 08/31/22 10:34 09:31 10:20 Wound Care Nurse 3 #1 right medial LE -Ulcer Cleansing Rinsed/ Rinsed/ Rinsed/ Irrigated with Irrigated with Irrigated with Saline Saline Saline -Foul Odor after Cleansing No No No -Negative Pressure Wound Therapy N/A N/A -Primary Dressing Applied Hysept ($) -Other Dressing hydrogel today c.hydrogel in clinic -Primary Dressing Covered/Secured with Dry Gauze & Dry Gauze & Dry Gauze & Roll Gauze, Roll Gauze, Roll Gauze, Secured with Secured with Secured with Tape Tape Tape Treatment Response Procedure Procedure Tolerated Well Tolerated Well Pain Scale: 0-10 Numeric Is Patient Pain Free? Yes Yes Yes Teaching: Wound Center Dressing Your Wound -Person Taught Patient,Family -Teaching Method Discussion -Response to teaching Verbalize understanding WC - Visit Discharge Discharge Condition Stable Stable Stable Ambulatory Status Ambulatory Ambulatory Ambulatory Transportation Private Auto Private Auto Private Auto Accompanied by Medication Reconcilliation completed & No Yes provided to patient/care provider Clinical Summary of Care Provided Yes Yes Notes: Pt to obtain dressing Santyl and applied per A. start when Alpesh E LEARNING MANAGER available at home. Assessment/Plan Assessment/Plan (1) Leg wound, right: CODE(S): S81.801A - Unspecified open wound, right lower leg, initial encounter QUALIFIERS: Encounter type: subsequent encounter Qualified Code(s): S81.801D - Unspecified open wound, right lower leg, subsequent encounter (2) Necrosis: CODE(S): I96 - Gangrene, not elsewhere classified (3) GERD (gastroesophageal reflux disease): CODE(S): K21.9 - Gastro-esophageal reflux disease without esophagitis (4) Arthritis: CODE(S): M19.90 - Unspecified osteoarthritis, unspecified site (5) Asthma: CODE(S): J45.909 - Unspecified asthma, uncomplicated (6) History of brain cancer in adulthood: CODE(S): Z85.841 - Personal history of malignant neoplasm of brain (7) History of malignant neoplasm of brain in adulthood: CODE(S): Z85.841 - Personal history of malignant neoplasm of brain (8) History of seizures: CODE(S): Z87.898 - Personal history of other specified conditions (9) Expressive aphasia: CODE(S): R47.01 - Aphasia (10) TMJ (temporomandibular joint disorder): CODE(S): M26.609 - Unspecified temporomandibular joint disorder, unspecified side (11) 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 A large amount of necrotic and gangrenous material remains at the site of the traumatic wound. Furthermore, within the last week, there is evidence of developing infection, with an increase in the nonviable and necrotic material, as well as odor. There is also a rim of cellulitis about the wound itself. Therefore, swab cultures have been obtained for aerobic and anaerobic bacterial growth. We will await the results of these cultures and respond accordingly. Attempts at debridement today were met with physical patient resistance, rendering a satisfactory debridement insurmountable. We are to transition to the use of Dakin's-moistened gauze topically, which will be changed on a daily basis. The patient is to follow-up in 1 week for reassessment. Ultimately, it appears necessary to consider a surgical debridement in the operating room setting, where adequate anesthesia can be provided for patient comfort purposes. The goal will be to remove the necrotic and gangrenous material at the surface of the patient's wound, following which other options for enhancing wound healing will be possible. Total time: 28 minutes
[2022-08-31 12:27] VITALS: BP 85/50; PULSE 70; TEMP 35.6; BMI 22.2
[2022-09-07 09:38] VITALS: BP 127/85; PULSE 67; TEMP 36.4; BMI 22.2
--- NOTE | 2022-09-07 15:22 | HP.PCM_ITS ---
History of Present Illness Date of Service: 09/07/22 Chief Complaint: Traumatic wound of the right leg History of Wound: This is a 61-year-old female who presented with a traumatic wound on her right medial leg. The injury occurred on August 08, 2022. The patient had a mishap while using a treadmill. She fell, impacting the medial aspect of her right leg, just below the knee. She sustained a penetrating injury and has been treated by her primary care physician since that time. She had most recently been using Silvadene topically on a daily basis. She denied fevers, sweats, and chills. Antibiotics had not been prescribed. The wound failed to show improvement since it occurred. 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 Home Medications armodafinil 250 mg tablet 250 mg PO DAILY 08/17/22 [History Last Taken Unknown] Surgical History History of brain surgery History of cholecystectomy History of total abdominal hysterectomy Hx of LASIK Social History Smoking Status: Never smoker Vital Signs Vital Signs Vital Signs: 09/07/22 09:38 Temperature 97.6 F L Temperature Source Temporal Pulse Rate 67 Blood Pressure 127/85 H Blood Pressure Mean 99 Blood Pressure Source Monitor Blood Pressure Position Sitting Blood Pressure Location Right Arm Weight Weight: 140 lb Body Mass Index (BMI) 22.2 Physical Exam Const alert, oriented x3, no apparent distress, average body habitus and well nourished Constitutional Narrative: The patient is alert and oriented. She appears to be cognitively intact. However, an expressive speech aphasia is identified. 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 General Appearance: cooperative, comfortable, well kempt and well developed Orientation / Consciousness: awake, oriented to person, oriented to place and oriented to time HEENT normocephalic and head/scalp atraumatic Head and Scalp: normal to inspection, normocephalic and atraumatic External Ear: external ears normal Eyes PERRL and EOMs intact bilaterally General Eye: normal appearance of both eyes Resp normal respiratory effort, normal air movement, no retractions and no use of accessory muscles Effort and Inspection: able to speak in complete sentences Extremity no calf tenderness General Extremity: Negative for clubbing or cyanosis Skin Wound Narrative: No significant swelling or edema are noted in the patient's lower extremities. A large necrotic wound is noted on the medial aspect of the right lower extremity, just below the knee. Dimensions are documented elsewhere. There is a large amount of nonviable and gangrenous material. However, there has been significant improvement, and nearly 50% of the necrotic and nonviable tissue has now been removed, and replaced with generally pink, healthy, granulation tissue. There is no longer disagreeable odor, and no significant periwound erythema to suggest infection or cellulitis. Neuro oriented x3, CN's II-XII intact bilaterally and moves all extremities Neuro Narrative: An expressive speech aphasia is noted. Sensorium / Orientation: awake, alert, oriented to person, oriented to place and oriented to time Psych Appearance: grossly normal and appropriate Attitude: calm Activity / Motor Behavior: appropriate eye contact Speech: normal speech Mood & Affect: euthymic mood Thought Process: normal thought process Thought Content: normal thought content Attention / Concentration: attention grossly intact Debridement Note Debridement Note Wound debrided: Right medial lower extremity Laterality: Right Type of Debridement: Excisional debridement Anesthesia Used: 5% Lidocaine Gel and Cetacaine Depth: Down to and including healthy tissue and in the subcutaneous layer Percentage of wound debrided: 100 and 50 Instrument Used: 5mm curette, Forceps and - (Scissors) Tissue Removed: Necrotic and nonviable tissue Severity: Fat Layer Exposed Amount of bleeding with debridement: Mild Bleeding Controlled with: Compression and gauze Patient tolerated procedure: Patient tolerated procedure well Debridement Free Text: A large amount of frankly necrotic and gangrenous material is noted to involve the wound surface. However, there has been significant improvement, with removal of nearly half of the nonviable and necrotic tissue. Post-Debridement Measurements and Additional Note: Post-Debridement Measurements/Treatment WC - Nurse 1 - General Ulcer Assessment Start: 08/17/22 09:45 Freq: Status: Active Protocol: JERICHO Activity Type Activity Date Activity User E-sign Co-sign Detail Recorded Client Recorded Date Recorded By Document 08/17/22 09:45 MW [id number] 08/17/22 10:07 MW Document 08/24/22 09:18 KR [id number] 08/24/22 09:20 KR Document 08/31/22 12:27 AK [id number] 08/31/22 12:30 AK Document 09/07/22 09:38 AK [id number] 09/07/22 09:39 AK 08/17/22 08/24/22 08/31/22 09:45 09:18 12:27 WC - Today's Visit Information Type of service Follow-up Visit Follow-up Visit Follow-up Visit (Physician/SMOKING PIPE REPAIRER (Physician/SMOKING PIPE REPAIRER (Physician/SMOKING PIPE REPAIRER ) ) ) Arrival Mode Ambulatory Ambulatory Ambulatory Transfer Assistance None Accompanied by Patient Identification Verified (Name & Yes Yes ) Patient Requires Transmission-Based No Precautions Height and Weight Height 5 ft 6.5 in Weight 140 lb Weight in Pounds 140.0 lbs Weight Measurement Method Stated by Patient Body Mass Index (BMI) 22.2 22.2 22.2 BMI Classification Normal Normal Normal BSA - Marcie 1.73 Vital Signs Temperature (97.8 F-99.1 F) 97.2 F L 97.5 F L 96.1 F L Temperature Source Temporal Oral Temporal Pulse Rate (60-100) 107 H 80 70 Pulse Location Monitor Monitor Monitor Respiratory Rate (12-18) 16 Respiratory rate source Observation Oxygen Delivery Method Room Air Blood Pressure (90/60-120/80) 122/72 H 113/56 L 85/50 L Blood Pressure Mean 88 75 61 Source Monitor Monitor Monitor Position Sitting Semi-Fowlers Blood Pressure Location Left Arm Right Arm History Since Last Visit- (Skip if this is Patient's initial visit) Have you changed medications since your No No last visit? Any new allergies or adverse reactions No No Had a fall/change in ADL's that may No No increase risk of falls Signs or symptoms of abuse and/or No No neglect since last visit Have you been in the hospital since your No No last visit? Has dressing in place as prescribed Yes Yes Has compression in place as prescribed No Yes Has offloadiing in place as prescribed N/A N/A Experienced any changes in pain level or No No management Left Footwear Regular Shoe Regular Shoe Regular Shoe Right Footwear Regular Shoe Regular Shoe Regular Shoe Pain Scale: 0-10 Numeric Is Patient Pain Free? Yes Yes Yes Communication Assessment Preferred language Slovak Car Park Attendant Required No Able to Read Yes Able to Write Yes Communication Tools None Caregiver Communication Skills No Impairment Impairment Right Hearing Abillity Normal Left Hearing Abillity Normal Visual Assistive Devices None Teaching Assessment Preferences Verbal,Written, Audio/Visual, Demonstration Barriers to Learning None Readiness To Learn Excellent Willingness to Engage in Self Management High Activies Readiness to Engage in Self Management High Activities Anxiety Level Calm Cooperation Cooperative Perception Coherent Interest in Health Problem Asks Questions Education Importance Denies Need Does Patient Smoke tobacco or other Yes substances Smoking Status Never smoker Is Patient Diabetic No Functional Assessment Recent Decline in Ability to Perform Denies Any Declines Culture/Temple/Burring Machine Operator Cultural/Temple Needs that may affect No Treatment Plan Would you allow our hospital joint machine operator to No meet you for the purpose of spiritual/ emotional support? [place]ring Machine Operator to contact place of jew No Teaching: Wound Center Dressing Your Wound -Person Taught Patient -Teaching Method Discussion -Response to teaching Verbalize understanding 09/07/22 09:38 WC - Today's Visit Information Type of service Follow-up Visit (Physician/SMOKING PIPE REPAIRER ) Arrival Mode Ambulatory Transfer Assistance Accompanied by Patient Identification Verified (Name & ) Patient Requires Transmission-Based Precautions Height and Weight Height Weight Weight in Pounds Weight Measurement Method Body Mass Index (BMI) 22.2 BMI Classification Normal BSA - Marcie Vital Signs Temperature (97.8 F-99.1 F) 97.6 F L Temperature Source Temporal Pulse Rate (60-100) 67 Pulse Location Monitor Respiratory Rate (12-18) Respiratory rate source Oxygen Delivery Method Blood Pressure (90/60-120/80) 127/85 H Blood Pressure Mean 99 Source Monitor Position Sitting Blood Pressure Location Right Arm History Since Last Visit- (Skip if this is Patient's initial visit) Have you changed medications since your No last visit? Any new allergies or adverse reactions No Had a fall/change in ADL's that may No increase risk of falls Signs or symptoms of abuse and/or No neglect since last visit Have you been in the hospital since your No last visit? Has dressing in place as prescribed Yes Has compression in place as prescribed Yes Has offloadiing in place as prescribed N/A Experienced any changes in pain level or No management Left Footwear Regular Shoe Right Footwear Regular Shoe Pain Scale: 0-10 Numeric Is Patient Pain Free? Yes Communication Assessment Preferred speech and language assistant Required Able to Read Able to Write Communication Tools Caregiver Communication Skills Impairment Right Hearing Abillity Left Hearing Abillity Visual Assistive Devices Teaching Assessment Preferences Barriers to Learning Readiness To Learn Willingness to Engage in Self Management Activies Readiness to Engage in Self Management Activities Anxiety Level Cooperation Perception Interest in Health Problem Education Importance Does Patient Smoke tobacco or other substances Smoking Status Is Patient Diabetic Functional Assessment Recent Decline in Ability to Perform Culture/Temple/Burring Machine Operator Cultural/Temple Needs that may affect Treatment Plan Would you allow our hospital joint machine operator to meet you for the purpose of spiritual/ emotional support? Burring Machine Operator to contact place of jew Teaching: Wound Center Dressing Your Wound -Person Taught -Teaching Method -Response to teaching WC - Nurse 1 - General Ulcer Measurement Start: 08/17/22 09:45 Freq: Status: Active Protocol: Activity Type Activity Date Activity User E-sign Co-sign Detail Recorded Client Recorded Date Recorded By Document 08/17/22 09:45 MW [id number] 08/17/22 10:07 MW Document 08/24/22 09:18 KR [id number] 08/24/22 09:20 KR Document 08/31/22 12:27 AK [id number] 08/31/22 12:30 AK Document 09/07/22 09:38 AK [id number] 09/07/22 09:39 AK 08/17/22 08/24/22 08/31/22 09:45 09:18 12:27 Wound Center Nurse 1 #1 right medial LE -Combined with other wound No No -Current Size (cm) - Length 6.5 6 10.5 -Current Size (cm) - Width 8.5 9.5 5.5 -Current Size (cm) - Depth 0.1 0.2 0.2 -Total Square Cm 55.25 57.0 57.75 -Date of Last Picture (Recall this 08/17/22 08/31/22 field) -Photo Taken Yes Yes -Epithelialization None Present -Tunneling No No -Undermining/Tunneling No No -Circular Undermining No No -Change in Wound Grade/Stage No -Exudate Amt Medium Large Medium -Exudate Type Serosanguineous Yellow/Green Serosanguineous -Wound Margin Flat & Intact Distinct, Distinct, Outline Outline Attached Attached -Granulation Amt Small (1-33%) Large (67-100%) Small (1-33%) -Granulation Quality Kilmichael Kilmichael -Slough/Fibrin Yes Yes -Necrosis Amt Large (67-100%) Large (67-100%) Medium (34-66%) -Necrotic Tissue Type Adherent Slough Adherent Slough Adherent Slough -Structure Exposed N/A N/A -Texture (Krupa-wound Skin Appearance) Assessed, Assessed, Assessed, Localized Edema Scarring Friable -Moisture (Krupa-wound Skin Appearance) No Abnormality, No Abnormality, No Abnormality, Assessed Assessed Assessed -Color (Krupa-wound Skin Appearance) Assessed, No Abnormality, No Abnormality, Erythema Assessed Assessed -Temperature (Krupa-wound Skin No Abnormality No Abnormality No Abnormality Appearance) (Pt Warm) (Pt Warm) (Pt Warm) -Tenderness on Palpation (Krupa-wound Yes No Yes Skin Appearance) -Ulcer Cleansing Rinsed/ Rinsed/ Soap and Water Irrigated with Irrigated with Saline Saline -Foul Odor after Cleansing No No No -Anesthetic Used 4% Lidocaine 4% Lidocaine 4% Lidocaine Solution Solution,5% Solution,5% Lidocaine Gel Lidocaine Gel Lower Limb Edema Present No No Right Calf (cm) 37.0 Right Ankle (cm) 21.5 Left Calf (cm) 36.5 Left Ankle (cm) 21.0 09/07/22 09:38 Wound Center Nurse 1 #1 right medial LE -Combined with other wound -Current Size (cm) - Length 5.5 -Current Size (cm) - Width 9.5 -Current Size (cm) - Depth 0.1 -Total Square Cm 52.25 -Date of Last Picture (Recall this field) -Photo Taken -Epithelialization -Tunneling -Undermining/Tunneling -Circular Undermining -Change in Wound Grade/Stage -Exudate Amt Medium -Exudate Type Serosanguineous -Wound Margin Distinct, Outline Attached -Granulation Amt Medium (34-66%) -Granulation Quality Kilmichael -Slough/Fibrin -Necrosis Amt Small (1-33%) -Necrotic Tissue Type Eschar -Structure Exposed -Texture (Krupa-wound Skin Appearance) Assessed, Scarring -Moisture (Krupa-wound Skin Appearance) No Abnormality, Assessed -Color (Krupa-wound Skin Appearance) No Abnormality, Assessed -Temperature (Krupa-wound Skin No Abnormality Appearance) (Pt Warm) -Tenderness on Palpation (Krupa-wound No Skin Appearance) -Ulcer Cleansing Rinsed/ Irrigated with Saline -Foul Odor after Cleansing No -Anesthetic Used 4% Lidocaine Solution,5% Lidocaine Gel Lower Limb Edema Present Right Calf (cm) Right Ankle (cm) Left Calf (cm) Left Ankle (cm) WC - Nurse 2 - General Ulcer CM Notes Start: 08/17/22 09:45 Freq: Status: Active Protocol: Activity Type Activity Date Activity User E-sign Co-sign Detail Recorded Client Recorded Date Recorded By Document 08/17/22 12:10 PL [id number] 08/17/22 12:11 PL Document 08/24/22 11:37 PL [id number] 08/24/22 11:38 PL Edit Result 08/24/22 11:37 PL (1) [id number] 08/25/22 07:37 PL Document 08/31/22 11:47 PL [id number] 08/31/22 11:48 PL Document 09/07/22 12:03 PL [id number] 09/07/22 12:04 PL (1) #1 right medial LE - Time => 09:45 - Correct Patient => Yes - Correct Side, Site, Position => Yes - Correct Procedure => Yes - Procedure Performed No => Yes - Type of Procedure => Debridement - Clinical Debridement => Subcutaneous - Tissue Removed => Subcutaneous - Post Debridement (cm) - Length => 6.5 - Post Debridement (cm) - Width => 8.5 - Post Debridement (cm) - Depth => 0.1 - Total Square (Post) (cm) => 55.25 - Area of Debridement (cm) - Length => 6.5 - Area of Debridement (cm) - Width => 8.5 - Total Square (Area) (cm) => 55.25 - Tunneling => No - Undermining/Tunneling => No - Circular Undermining => No - Wound/Ulcer Outcome => Not Healed - Ulcer Cleansing => Rinsed/Irrigated => with Saline - Bioengineered Tissue => No - Bleeding Controlled with => Pressure - Treatment Response => Procedure => Tolerated Well - Debridement - Subq, 1st 20sq cm => Yes - Debridement, SubQ, ea addt'l 20sq cm => 2 or part thereof 08/17/22 08/24/22 08/31/22 12:10 11:37 11:47 Wound Center Nurse 2 #1 right medial LE -Time 10:21 09:45 09:39 -Correct Patient Yes Yes Yes -Correct Side, Site, Position Yes Yes Yes -Correct Procedure Yes Yes Yes -Procedure Performed Yes Yes Yes -Type of Procedure Debridement Debridement Debridement -Clinical Debridement Subcutaneous Subcutaneous Subcutaneous -Tissue Removed Subcutaneous Subcutaneous Subcutaneous -Post Debridement (cm) - Length 6.5 6.5 6.5 -Post Debridement (cm) - Width 8.5 8.5 8.5 -Post Debridement (cm) - Depth 0.1 0.1 0.2 -Total Square (Post) (cm) 55.25 55.25 55.25 -Area of Debridement (cm) - Length 6.5 6.5 6.5 -Area of Debridement (cm) - Width 8.5 8.5 8.5 -Total Square (Area) (cm) 55.25 55.25 55.25 -Tunneling No No No -Undermining/Tunneling No No No -Circular Undermining No No No -Wound/Ulcer Outcome Not Healed Not Healed Not Healed -Ulcer Cleansing Rinsed/ Rinsed/ Rinsed/ Irrigated with Irrigated with Irrigated with Saline Saline Saline -Foul Odor after Cleansing No No -Bioengineered Tissue No No No -Bleeding Controlled with Pressure Pressure Pressure -Treatment Response Procedure Procedure Procedure Tolerated Well Tolerated Well Tolerated Well -Debridement - Subq, 1st 20sq cm Yes Yes Yes -Debridement, SubQ, ea addt'l 20sq cm 2 2 2 or part thereof Pain Scale: 0-10 Numeric Is Patient Pain Free? Yes Yes Yes 09/07/22 12:03 Wound Center Nurse 2 #1 right medial LE -Time 09:55 -Correct Patient Yes -Correct Side, Site, Position Yes -Correct Procedure Yes -Procedure Performed Yes -Type of Procedure Debridement -Clinical Debridement Subcutaneous -Tissue Removed Subcutaneous -Post Debridement (cm) - Length 9.5 -Post Debridement (cm) - Width 5.5 -Post Debridement (cm) - Depth 0.1 -Total Square (Post) (cm) 52.25 -Area of Debridement (cm) - Length 9.5 -Area of Debridement (cm) - Width 5.5 -Total Square (Area) (cm) 52.25 -Tunneling No -Undermining/Tunneling No -Circular Undermining No -Wound/Ulcer Outcome Not Healed -Ulcer Cleansing Rinsed/ Irrigated with Saline -Foul Odor after Cleansing No -Bioengineered Tissue No -Bleeding Controlled with Pressure -Treatment Response Procedure Tolerated Well -Debridement - Subq, 1st 20sq cm Yes -Debridement, SubQ, ea addt'l 20sq cm 2 or part thereof Pain Scale: 0-10 Numeric Is Patient Pain Free? Yes WC - Nurse 3 - General Ulcer D/C NN Start: 08/17/22 09:45 Freq: Status: Active Protocol: Activity Type Activity Date Activity User E-sign Co-sign Detail Recorded Client Recorded Date Recorded By Document 08/17/22 10:34 DL Desktop 08/17/22 10:37 DL Document 08/24/22 09:31 MW [id number] 08/24/22 09:34 MW Document 08/31/22 10:20 AK [id number] 08/31/22 10:21 AK Document 09/07/22 10:11 KR [id number] 09/07/22 10:12 KR 08/17/22 08/24/22 08/31/22 10:34 09:31 10:20 Wound Care Nurse 3 #1 right medial LE -Ulcer Cleansing Rinsed/ Rinsed/ Rinsed/ Irrigated with Irrigated with Irrigated with Saline Saline Saline -Foul Odor after Cleansing No No No -Negative Pressure Wound Therapy N/A N/A -Primary Dressing Applied Hysept ($) -Other Dressing hydrogel today c.hydrogel in clinic -Primary Dressing Covered/Secured with Dry Gauze & Dry Gauze & Dry Gauze & Roll Gauze, Roll Gauze, Roll Gauze, Secured with Secured with Secured with Tape Tape Tape Treatment Response Procedure Procedure Tolerated Well Tolerated Well Pain Scale: 0-10 Numeric Is Patient Pain Free? Yes Yes Yes Teaching: Wound Center Dressing Your Wound -Person Taught Patient,Family -Teaching Method Discussion -Response to teaching Verbalize understanding WC - Visit Discharge Discharge Condition Stable Stable Stable Ambulatory Status Ambulatory Ambulatory Ambulatory Transportation Private Auto Private Auto Private Auto Accompanied by Medication Reconcilliation completed & No Yes provided to patient/care provider Clinical Summary of Care Provided Yes Yes Notes: Pt to obtain dressing Santyl and applied per A. start when [place] PLANT PATHOLOGY TEACHER available at home. 09/07/22 10:11 Wound Care Nurse 3 #1 right medial LE -Ulcer Cleansing Rinsed/ Irrigated with Saline -Foul Odor after Cleansing -Negative Pressure Wound Therapy -Primary Dressing Applied -Other Dressing dakins -Primary Dressing Covered/Secured with Dry Gauze, Secured with Tape Treatment Response Pain Scale: 0-10 Numeric Is Patient Pain Free? Yes Teaching: Wound Center Dressing Your Wound -Person Taught -Teaching Method -Response to teaching WC - Visit Discharge Discharge Condition Stable Ambulatory Status Ambulatory Transportation Private Auto Accompanied by Medication Reconcilliation completed & provided to patient/care provider Clinical Summary of Care Provided Notes: Lab / Micro Data Micro: Microbiology 08/31/22 09:45 Wound Abcess - Leg, Right Gram Stain - Final 08/31/22 09:45 Wound Abcess - Leg, Right Wound Culture - Final Citrobacter braakii 08/31/22 09:45 Wound Abcess - Leg, Right Anaerobic Culture - Final Bacteroides vulgatus Prevotella melaninogenica Anaerobic cocci Assessment/Plan Assessment/Plan (1) Leg wound, right: CODE(S): S81.801A - Unspecified open wound, right lower leg, initial encounter QUALIFIERS: Encounter type: subsequent encounter Qualified C ode(s): S81.801D - Unspecified open wound, right lower leg, subsequent encounter (2) Necrosis: CODE(S): I96 - Gangrene, not elsewhere classified (3) GERD (gastroesophageal reflux disease): CODE(S): K21.9 - Gastro-esophageal reflux disease without esophagitis (4) Arthritis: CODE(S): M19.90 - Unspecified osteoarthritis, unspecified site (5) Asthma: CODE(S): J45.909 - Unspecified asthma, uncomplicated (6) History of brain cancer in adulthood: CODE(S): Z85.841 - Personal history of malignant neoplasm of brain (7) History of malignant neoplasm of brain in adulthood: CODE(S): Z85.841 - Personal history of malignant neoplasm of brain (8) History of seizures: CODE(S): Z87.898 - Personal history of other specified conditions (9) Expressive aphasia: CODE(S): R47.01 - Aphasia (10) TMJ (temporomandibular joint disorder): CODE(S): M26.609 - Unspecified temporomandibular joint disorder, unspecified side (11) 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 A large amount of necrotic and gangrenous material remains at the site of the traumatic wound. Swab cultures were obtained for aerobic and anaerobic bacterial growth. We are to continue the use of Dakin's-moistened gauze topically, which will be changed on a daily basis. The patient is to follow-up in 1 week for reassessment. Because of the previous appearance of the wound, and a large amount of necrotic and nonviable tissue, with odor, swab cultures were obtained for aerobic and anaerobic bacterial growth. Initial cultures were positive for Citrobacter braachii. The patient was started on levofloxacin 750 mg p.o. daily, for 10 days, based upon sensitivity results. Subsequent culture results also demonstrated the presence of Bacteroides vulgatus and Prevotella melaninogenica. Because of the improvement in the appearance of the patient's wound within the last week, we are to defer adding antibiotic coverage for the anaerobic organisms. However, this will be monitored serially. The patient has shown significant improvement within the last week. It has been felt that the patient may require surgical debridement in the operating room setting. However, the improvement within the last week suggest that this may not be necessary. Patient will follow-up in 1 week for reevaluation. Total time: 28 minutes
[2022-09-14 09:33] VITALS: BP 126/69; TEMP 36.2; BMI 22.2
--- NOTE | 2022-09-14 12:22 | PCM.WC.HP ---
History of Present Illness Date of Service: 09/14/22 Chief Complaint: Traumatic wound of the right leg History of Wound: This is a 61-year-old female who presented with a traumatic wound on her right medial leg. The injury occurred on August 08, 2022. The patient had a mishap while using a treadmill. She fell, impacting the medial aspect of her right leg, just below the knee. She sustained a penetrating injury and has been treated by her primary care physician since that time. She had most recently been using Silvadene topically on a daily basis. She denied fevers, sweats, and chills. Antibiotics had not been prescribed. The wound failed to show improvement since it occurred. 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 Home Medications armodafinil 250 mg tablet 250 mg PO DAILY 08/17/22 [History Last Taken Unknown] Surgical History History of brain surgery History of cholecystectomy History of total abdominal hysterectomy Hx of LASIK Social History Smoking Status: Never smoker Vital Signs Vital Signs Vital Signs: 09/14/22 09:33 Temperature 97.2 F L Temperature Source Temporal Blood Pressure 126/69 H Blood Pressure Mean 88 Blood Pressure Source Monitor Weight Weight: 140 lb Body Mass Index (BMI) 22.2 Physical Exam Const alert, oriented x3, no apparent distress, average body habitus and well nourished Constitutional Narrative: The patient is alert and oriented. She appears to be cognitively intact. However, an expressive speech aphasia is identified. 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 General Appearance: cooperative, comfortable, well kempt and well developed Orientation / Consciousness: awake, oriented to person, oriented to place and oriented to time HEENT normocephalic and head/scalp atraumatic Head and Scalp: normal to inspection, normocephalic and atraumatic External Ear: external ears normal Eyes PERRL and EOMs intact bilaterally General Eye: normal appearance of both eyes Resp normal respiratory effort, normal air movement, no retractions and no use of accessory muscles Effort and Inspection: able to speak in complete sentences Extremity no calf tenderness General Extremity: Negative for clubbing or cyanosis Skin Wound Narrative: No significant swelling or edema are noted in the patient's lower extremities. A large wound is noted on the medial aspect of the right lower extremity, just below the knee, with some persisting areas of necrosis. Dimensions are documented elsewhere. There is a small amount of nonviable and gangrenous material, though diminishing in amount. There has been significant improvement in recent weeks with elimination of the necrotic and nonviable tissue, and replacement with healthy, granulation tissue. There is no longer disagreeable odor, and no significant periwound erythema to suggest infection or cellulitis. Neuro oriented x3, CN's II-XII intact bilaterally and moves all extremities Neuro Narrative: An expressive speech aphasia is noted. Sensorium / Orientation: awake, alert, oriented to person, oriented to place and oriented to time Psych Appearance: grossly normal and appropriate Attitude: calm Activity / Motor Behavior: appropriate eye contact Speech: normal speech Mood & Affect: euthymic mood Thought Process: normal thought process Thought Content: normal thought content Attention / Concentration: attention grossly intact Debridement Note Debridement Note Wound debrided: Right medial lower extremity Laterality: Right Type of Debridement: Excisional debridement Anesthesia Used: 5% Lidocaine Gel and Cetacaine Depth: Down to and including healthy tissue and in the subcutaneous layer Percentage of wound debrided: 100 and 50 Instrument Used: 5mm curette, Forceps and - (Scissors) Tissue Removed: Necrotic and nonviable tissue Severity: Fat Layer Exposed Amount of bleeding with debridement: Mild Bleeding Controlled with: Compression and gauze Patient tolerated procedure: Patient tolerated procedure well Debridement Free Text: There has been significant improvement, with elimination of most of the nonviable and necrotic tissue. Post-Debridement Measurements and Additional Note: Post-Debridement Measurements/Treatment WC - Nurse 1 - General Ulcer Assessment Start: 08/17/22 09:45 Freq: Status: Active Protocol: JERICHO Activity Type Activity Date Activity User E-sign Co-sign Detail Recorded Client Recorded Date Recorded By Document 08/17/22 09:45 MW [id number] 08/17/22 10:07 MW Document 08/24/22 09:18 KR [id number] 08/24/22 09:20 KR Document 08/31/22 12:27 AK [id number] 08/31/22 12:30 AK Document 09/07/22 09:38 AK [id number] 09/07/22 09:39 AK Document 09/14/22 09:33 AK [id number] 09/14/22 09:35 AK 08/17/22 08/24/22 08/31/22 09:45 09:18 12:27 WC - Today's Visit Information Type of service Follow-up Visit Follow-up Visit Follow-up Visit (Physician/JUSTOWRITER OPERATOR (Physician/JUSTOWRITER OPERATOR (Physician/JUSTOWRITER OPERATOR ) ) ) Arrival Mode Ambulatory Ambulatory Ambulatory Transfer Assistance None Accompanied by Patient Identification Verified (Name & Yes Yes ) Patient Requires Transmission-Based No Precautions Safety Precautions Height and Weight Height 5 ft 6.5 in Weight 140 lb Weight in Pounds 140.0 lbs Weight Measurement Method Stated by Patient Body Mass Index (BMI) 22.2 22.2 22.2 BMI Classification Normal Normal Normal BSA - Marcie 1.73 Vital Signs Temperature (97.8 F-99.1 F) 97.2 F L 97.5 F L 96.1 F L Temperature Source Temporal Oral Temporal Pulse Rate (60-100) 107 H 80 70 Pulse Location Monitor Monitor Monitor Respiratory Rate (12-18) 16 Respiratory rate source Observation Oxygen Delivery Method Room Air Blood Pressure (90/60-120/80) 122/72 H 113/56 L 85/50 L Blood Pressure Mean 88 75 61 Source Monitor Monitor Monitor Position Sitting Semi-Fowlers Blood Pressure Location Left Arm Right Arm History Since Last Visit- (Skip if this is Patient's initial visit) Have you changed medications since your No No last visit? Any new allergies or adverse reactions No No Had a fall/change in ADL's that may No No increase risk of falls Signs or symptoms of abuse and/or No No neglect since last visit Have you been in the hospital since your No No last visit? Has dressing in place as prescribed Yes Yes Has compression in place as prescribed No Yes Has offloadiing in place as prescribed N/A N/A Experienced any changes in pain level or No No management Left Footwear Regular Shoe Regular Shoe Regular Shoe Right Footwear Regular Shoe Regular Shoe Regular Shoe Pain Scale: 0-10 Numeric Is Patient Pain Free? Yes Yes Yes Communication Assessment Preferred language [place] Building Equipment Operator Required No Able to Read Yes Able to Write Yes Communication Tools None Caregiver Communication Skills No Impairment Impairment Right Hearing Abillity Normal Left Hearing Abillity Normal Visual Assistive Devices None Teaching Assessment Preferences Verbal,Written, Audio/Visual, Demonstration Barriers to Learning None Readiness To Learn Excellent Willingness to Engage in Self Management High Activies Readiness to Engage in Self Management High Activities Anxiety Level Calm Cooperation Cooperative Perception Coherent Interest in Health Problem Asks Questions Education Importance Denies Need Does Patient Smoke tobacco or other Yes substances Smoking Status Never smoker Is Patient Diabetic No Functional Assessment Recent Decline in Ability to Perform Denies Any Declines Culture/Mandaeism/Campaign Analyst Cultural/Mandaeism Needs that may affect No Treatment Plan Would you allow our hospital urogynaecologist to No meet you for the purpose of spiritual/ emotional support? Campaign Analyst to contact place of christianity No Teaching: Wound Center Dressing Your Wound -Person Taught Patient -Teaching Method Discussion -Response to teaching Verbalize understanding 09/07/22 09/14/22 09:38 09:33 WC - Today's Visit Information Type of service Follow-up Visit Follow-up Visit (Physician/JUSTOWRITER OPERATOR (Physician/JUSTOWRITER OPERATOR ) ) Arrival Mode Ambulatory Ambulatory Transfer Assistance Accompanied by Patient Identification Verified (Name & Yes ) Patient Requires Transmission-Based No Precautions Safety Precautions NA Height and Weight Height Weight Weight in Pounds Weight Measurement Method Body Mass Index (BMI) 22.2 22.2 BMI Classification Normal Normal BSA - Marcie Vital Signs Temperature (97.8 F-99.1 F) 97.6 F L 97.2 F L Temperature Source Temporal Temporal Pulse Rate (60-100) 67 Pulse Location Monitor Respiratory Rate (12-18) Respiratory rate source Oxygen Delivery Method Blood Pressure (90/60-120/80) 127/85 H 126/69 H Blood Pressure Mean 99 88 Source Monitor Monitor Position Sitting Blood Pressure Location Right Arm History Since Last Visit- (Skip if this is Patient's initial visit) Have you changed medications since your No No last visit? Any new allergies or adverse reactions No No Had a fall/change in ADL's that may No No increase risk of falls Signs or symptoms of abuse and/or No No neglect since last visit Have you been in the hospital since your No No last visit? Has dressing in place as prescribed Yes Yes Has compression in place as prescribed Yes N/A Has offloadiing in place as prescribed N/A N/A Experienced any changes in pain level or No No management Left Footwear Regular Shoe Regular Shoe Right Footwear Regular Shoe Regular Shoe Pain Scale: 0-10 Numeric Is Patient Pain Free? Yes Yes Communication Assessment Preferred language therapist Required Able to Read Able to Write Communication Tools Caregiver Communication Skills Impairment Right Hearing Abillity Left Hearing Abillity Visual Assistive Devices Teaching Assessment Preferences Barriers to Learning Readiness To Learn Willingness to Engage in Self Management Activies Readiness to Engage in Self Management Activities Anxiety Level Cooperation Perception Interest in Health Problem Education Importance Does Patient Smoke tobacco or other substances Smoking Status Is Patient Diabetic Functional Assessment Recent Decline in Ability to Perform Culture/Mandaeism/Campaign Analyst Cultural/Mandaeism Needs that may affect Treatment Plan Would you allow our hospital urogynaecologist to meet you for the purpose of spiritual/ emotional support? Campaign Analyst to contact place of christianity Teaching: Wound Center Dressing Your Wound -Person Taught -Teaching Method -Response to teaching WC - Nurse 1 - General Ulcer Measurement Start: 08/17/22 09:45 Freq: Status: Active Protocol: Activity Type Activity Date Activity User E-sign Co-sign Detail Recorded Client Recorded Date Recorded By Document 08/17/22 09:45 MW [id number] 08/17/22 10:07 MW Document 08/24/22 09:18 KR [id number] 08/24/22 09:20 KR Document 08/31/22 12:27 AK [id number] 08/31/22 12:30 AK Document 09/07/22 09:38 AK [id number] 09/07/22 09:39 AK Document 09/14/22 09:33 AK [id number] 09/14/22 09:35 AK 08/17/22 08/24/22 08/31/22 09:45 09:18 12:27 Wound Center Nurse 1 #1 right medial LE -Combined with other wound No No -Current Size (cm) - Length 6.5 6 10.5 -Current Size (cm) - Width 8.5 9.5 5.5 -Current Size (cm) - Depth 0.1 0.2 0.2 -Total Square Cm 55.25 57.0 57.75 -Date of Last Picture (Recall this 08/17/22 08/31/22 field) -Photo Taken Yes Yes -Epithelialization None Present -Tunneling No No -Undermining/Tunneling No No -Circular Undermining No No -Change in Wound Grade/Stage No -Exudate Amt Medium Large Medium -Exudate Type Serosanguineous Yellow/Green Serosanguineous -Wound Margin Flat & Intact Distinct, Distinct, Outline Outline Attached Attached -Granulation Amt Small (1-33%) Large (67-100%) Small (1-33%) -Granulation Quality [place] -Slough/Fibrin Yes Yes -Necrosis Amt Large (67-100%) Large (67-100%) Medium (34-66%) -Necrotic Tissue Type Adherent Slough Adherent Slough Adherent Slough -Structure Exposed N/A N/A -Texture (Krupa-wound Skin Appearance) Assessed, Assessed, Assessed, Localized Edema Scarring Friable -Moisture (Krupa-wound Skin Appearance) No Abnormality, No Abnormality, No Abnormality, Assessed Assessed Assessed -Color (Krupa-wound Skin Appearance) Assessed, No Abnormality, No Abnormality, Erythema Assessed Assessed -Temperature (Krupa-wound Skin No Abnormality No Abnormality No Abnormality Appearance) (Pt Warm) (Pt Warm) (Pt Warm) -Tenderness on Palpation (Krupa-wound Yes No Yes Skin Appearance) -Ulcer Cleansing Rinsed/ Rinsed/ Soap and Water Irrigated with Irrigated with Saline Saline -Foul Odor after Cleansing No No No -Anesthetic Used 4% Lidocaine 4% Lidocaine 4% Lidocaine Solution Solution,5% Solution,5% Lidocaine Gel Lidocaine Gel Lower Limb Edema Present No No Right Calf (cm) 37.0 Right Ankle (cm) 21.5 Left Calf (cm) 36.5 Left Ankle (cm) 21.0 09/07/22 09/14/22 09:38 09:33 Wound Center Nurse 1 #1 right medial LE -Combined with other wound No -Current Size (cm) - Length 5.5 5 -Current Size (cm) - Width 9.5 9 -Current Size (cm) - Depth 0.1 -Total Square Cm 52.25 45 -Date of Last Picture (Recall this field) -Photo Taken No -Epithelialization -Tunneling No -Undermining/Tunneling No -Circular Undermining No -Change in Wound Grade/Stage No -Exudate Amt Medium Medium -Exudate Type Serosanguineous Serosanguineous -Wound Margin Distinct, Distinct, Outline Outline Attached Attached -Granulation Amt Medium (34-66%) None Present (0 %) -Granulation Quality [place] -Slough/Fibrin No -Necrosis Amt Small (1-33%) None Present (0 %) -Necrotic Tissue Type Eschar -Structure Exposed N/A -Texture (Krupa-wound Skin Appearance) Assessed, No Abnormality, Scarring Assessed -Moisture (Krupa-wound Skin Appearance) No Abnormality, No Abnormality, Assessed Assessed -Color (Krupa-wound Skin Appearance) No Abnormality, No Abnormality, Assessed Assessed -Temperature (Krupa-wound Skin No Abnormality No Abnormality Appearance) (Pt Warm) (Pt Warm) -Tenderness on Palpation (Krupa-wound No No Skin Appearance) -Ulcer Cleansing Rinsed/ Rinsed/ Irrigated with Irrigated with Saline Saline -Foul Odor after Cleansing No No -Anesthetic Used 4% Lidocaine 4% Lidocaine Solution,5% Solution,5% Lidocaine Gel Lidocaine Gel Lower Limb Edema Present Right Calf (cm) Right Ankle (cm) Left Calf (cm) Left Ankle (cm) WC - Nurse 2 - General Ulcer CM Notes Start: 08/17/22 09:45 Freq: Status: Active Protocol: Activity Type Activity Date Activity User E-sign Co-sign Detail Recorded Client Recorded Date Recorded By Document 08/17/22 12:10 PL [id number] 08/17/22 12:11 PL Document 08/24/22 11:37 PL [id number] 08/24/22 11:38 PL Edit Result 08/24/22 11:37 PL (1) [id number] 08/25/22 07:37 PL Document 08/31/22 11:47 PL [id number] 08/31/22 11:48 PL Document 09/07/22 12:03 PL [id number] 09/07/22 12:04 PL (1) #1 right medial LE - Time => 09:45 - Correct Patient => Yes - Correct Side, Site, Position => Yes - Correct Procedure => Yes - Procedure Performed No => Yes - Type of Procedure => Debridement - Clinical Debridement => Subcutaneous - Tissue Removed => Subcutaneous - Post Debridement (cm) - Length => 6.5 - Post Debridement (cm) - Width => 8.5 - Post Debridement (cm) - Depth => 0.1 - Total Square (Post) (cm) => 55.25 - Area of Debridement (cm) - Length => 6.5 - Area of Debridement (cm) - Width => 8.5 - Total Square (Area) (cm) => 55.25 - Tunneling => No - Undermining/Tunneling => No - Circular Undermining => No - Wound/Ulcer Outcome => Not Healed - Ulcer Cleansing => Rinsed/Irrigated => with Saline - Bioengineered Tissue => No - Bleeding Controlled with => Pressure - Treatment Response => Procedure => Tolerated Well - Debridement - Subq, 1st 20sq cm => Yes - Debridement, SubQ, ea addt'l 20sq cm => 2 or part thereof 08/17/22 08/24/22 08/31/22 12:10 11:37 11:47 Wound Center Nurse 2 #1 right medial LE -Time 10:21 09:45 09:39 -Correct Patient Yes Yes Yes -Correct Side, Site, Position Yes Yes Yes -Correct Procedure Yes Yes Yes -Procedure Performed Yes Yes Yes -Type of Procedure Debridement Debridement Debridement -Clinical Debridement Subcutaneous Subcutaneous Subcutaneous -Tissue Removed Subcutaneous Subcutaneous Subcutaneous -Post Debridement (cm) - Length 6.5 6.5 6.5 -Post Debridement (cm) - Width 8.5 8.5 8.5 -Post Debridement (cm) - Depth 0.1 0.1 0.2 -Total Square (Post) (cm) 55.25 55.25 55.25 -Area of Debridement (cm) - Length 6.5 6.5 6.5 -Area of Debridement (cm) - Width 8.5 8.5 8.5 -Total Square (Area) (cm) 55.25 55.25 55.25 -Tunneling No No No -Undermining/Tunneling No No No -Circular Undermining No No No -Wound/Ulcer Outcome Not Healed Not Healed Not Healed -Ulcer Cleansing Rinsed/ Rinsed/ Rinsed/ Irrigated with Irrigated with Irrigated with Saline Saline Saline -Foul Odor after Cleansing No No -Bioengineered Tissue No No No -Bleeding Controlled with Pressure Pressure Pressure -Treatment Response Procedure Procedure Procedure Tolerated Well Tolerated Well Tolerated Well -Debridement - Subq, 1st 20sq cm Yes Yes Yes -Debridement, SubQ, ea addt'l 20sq cm 2 2 2 or part thereof Pain Scale: 0-10 Numeric Is Patient Pain Free? Yes Yes Yes 11/22/22 12:03 Wound Center Nurse 2 #1 right medial LE -Time 09:55 -Correct Patient Yes -Correct Side, Site, Position Yes -Correct Procedure Yes -Procedure Performed Yes -Type of Procedure Debridement -Clinical Debridement Subcutaneous -Tissue Removed Subcutaneous -Post Debridement (cm) - Length 9.5 -Post Debridement (cm) - Width 5.5 -Post Debridement (cm) - Depth 0.1 -Total Square (Post) (cm) 52.25 -Area of Debridement (cm) - Length 9.5 -Area of Debridement (cm) - Width 5.5 -Total Square (Area) (cm) 52.25 -Tunneling No -Undermining/Tunneling No -Circular Undermining No -Wound/Ulcer Outcome Not Healed -Ulcer Cleansing Rinsed/ Irrigated with Saline -Foul Odor after Cleansing No -Bioengineered Tissue No -Bleeding Controlled with Pressure -Treatment Response Procedure Tolerated Well -Debridement - Subq, 1st 20sq cm Yes -Debridement, SubQ, ea addt'l 20sq cm 2 or part thereof Pain Scale: 0-10 Numeric Is Patient Pain Free? Yes - Nurse 3 - General Ulcer D/C NN Start: 08/17/22 09:45 Freq: Status: Active Protocol: Activity Type Activity Date Activity User E-sign Co-sign Detail Recorded Client Recorded Date Recorded By Document 08/17/22 10:34 DL Desktop 08/17/22 10:37 DL Document 08/24/22 09:31 MW [id number] 08/24/22 09:34 MW Document 08/31/22 10:20 AK [id number] 08/31/22 10:21 AK Document 09/07/22 10:11 KR [id number] 09/07/22 10:12 KR Document 09/14/22 10:42 KR [id number] 09/14/22 10:42 KR 08/17/22 08/24/22 08/31/22 10:34 09:31 10:20 Wound Care Nurse 3 #1 right medial LE -Ulcer Cleansing Rinsed/ Rinsed/ Rinsed/ Irrigated with Irrigated with Irrigated with Saline Saline Saline -Foul Odor after Cleansing No No No -Negative Pressure Wound Therapy N/A N/A -Primary Dressing Applied Hysept ($) -Other Dressing hydrogel today c.hydrogel in clinic -Primary Dressing Covered/Secured with Dry Gauze & Dry Gauze & Dry Gauze & Roll Gauze, Roll Gauze, Roll Gauze, Secured with Secured with Secured with Tape Tape Tape Treatment Response Procedure Procedure Tolerated Well Tolerated Well Pain Scale: 0-10 Numeric Is Patient Pain Free? Yes Yes Yes Teaching: Wound Center Dressing Your Wound -Person Taught Patient,Family -Teaching Method Discussion -Response to teaching Verbalize understanding WC - Visit Discharge Discharge Condition Stable Stable Stable Ambulatory Status Ambulatory Ambulatory Ambulatory Transportation Private Auto [employer] Accompanied by Medication Reconcilliation completed & No Yes provided to patient/care provider Clinical Summary of Care Provided Yes Yes Notes: Pt to obtain dressing Santyl and applied per A. start when [place] OPERATIONS VOCATIONAL INSTRUCTOR available at home. 09/07/22 09/14/22 10:11 10:42 Wound Care Nurse 3 #1 right medial LE -Ulcer Cleansing Rinsed/ Rinsed/ Irrigated with Irrigated with Saline Saline -Foul Odor after Cleansing -Negative Pressure Wound Therapy -Primary Dressing Applied -Other Dressing dakins dakins -Primary Dressing Covered/Secured with Dry Gauze, Dry Gauze,Dry Secured with Gauze & Roll Tape Gauze,Secured with Tape Treatment Response Pain Scale: 0-10 Numeric Is Patient Pain Free? Yes Yes Teaching: Wound Center Dressing Your Wound -Person Taught -Teaching Method -Response to teaching WC - Visit Discharge Discharge Condition Stable Stable Ambulatory Status Ambulatory Ambulatory Transportation Private [place] Accompanied by Medication Reconcilliation completed & provided to patient/care provider Clinical Summary of Care Provided Notes: Assessment/Plan Assessment/Plan (1) Leg wound, right: CODE(S): S81.801A - Unspecified open wound, right lower leg, initial encounter QUALIFIERS: Encounter type: subsequent encounter Qualified Code(s): S81.801D - Unspecified open wound, right lower leg, subsequent encounter (2) Necrosis: CODE(S): I96 - Gangrene, not elsewhere classified (3) GERD (gastroesophageal reflux disease): CODE(S): K21.9 - Gastro-esophageal reflux disease without esophagitis (4) Arthritis: CODE(S): M19.90 - Unspecified osteoarthritis, unspecified site (5) Asthma: CODE(S): J45.909 - Unspecified asthma, uncomplicated (6) History of brain cancer in adulthood: CODE(S): Z85.841 - Personal history of malignant neoplasm of brain (7) History of malignant neoplasm of brain in adulthood: CODE(S): Z85.841 - Personal history of malignant neoplasm of brain (8) History of seizures: CODE(S): Z87.898 - Personal history of other specified conditions (9) Expressive aphasia: CODE(S): R47.01 - Aphasia (10) TMJ (temporomandibular joint disorder): CODE(S): M26.609 - Unspecified temporomandibular joint disorder, unspecified side (11) 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 The preponderance of the necrotic and gangrenous material has been eliminated. We are to continue the use of Dakin's-moistened gauze topically, which will be changed on a daily basis. The patient is to follow-up in 1 week for reassessment. Because of the previous appearance of the wound, and a large amount of necrotic and nonviable tissue, with odor, swab cultures were obtained for aerobic and anaerobic bacterial growth. Initial cultures were positive for Citrobacter braachii. The patient was started on levofloxacin 750 mg p.o. daily, for 10 days, based upon sensitivity results. Subsequent culture results also demonstrated the presence of Bacteroides vulgatus and Prevotella melaninogenica. Because of the improvement in the appearance of the patient's wound within the last several weeks, we are to defer adding antibiotic coverage for the anaerobic organisms. However, this will be monitored serially. The patient has shown significant improvement within the last week. It had been felt that the patient may require surgical debridement in the operating room setting. However, the improvement within the last week suggests that this may not be necessary. 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 However, she is tolerating debridements much better in recent weeks. The patient will follow-up in 1 week for reevaluation. It is anticipated that the patient may be a candidate for a skin graft substitute such as TheraSkin within the next several weeks. Total time: 29 minutes
== END 2022-09-15 23:59 | disposition home or self-care (01) ==
LOC: WC 09:30
PROVIDERS: PCP Family Medicine; Visit Provider Surgery
DX: I96 Gangrene, not elsewhere classified (principal); L97.212 Non-pressure chronic ulcer of right calf with fat layer exposed; G83.84 Todd's paralysis (postepileptic); S81.831S Puncture wound without foreign body, right lower leg, sequela; W17.89XS Other fall from one level to another, sequela; J45.909 Unspecified asthma, uncomplicated; K21.9 Gastro-esophageal reflux disease without esophagitis; M19.90 Unspecified osteoarthritis, unspecified site; M26.609 Unspecified temporomandibular joint disorder, unspecified side; R47.01 Aphasia; Z85.841 Personal history of malignant neoplasm of brain; Z87.898 Personal history of other specified conditions; Z90.710 Acquired absence of both cervix and uterus
CPT/HCPCS: 11042; 11045; 87070; 87075; 87077; 87186; 87205; 99213; G0463

== ENCOUNTER 2022-10-05 09:30 | Outpatient (RCR) | payer MEDICARE, SELFPAY ==
[2022-09-16 00:08] VITALS: BP 126/69; PULSE 67; RESP 16; TEMP 36.2; BMI 22.2
[2022-09-21 10:38] VITALS: BP 109/74; PULSE 77; TEMP 36.4; BMI 22.2
--- NOTE | 2022-09-21 15:54 | HP.PCM_ITS ---
History of Present Illness Date of Service: 09/21/22 Chief Complaint: Traumatic wound of the right leg History of Wound: This is a 61-year-old female who presented with a traumatic wound on her right medial leg. The injury occurred on August 08, 2022. The patient had a mishap while using a treadmill. She fell, impacting the medial aspect of her right leg, just below the knee. She sustained a penetrating injury and has been treated by her primary care physician since that time. She had most recently been using Silvadene topically on a daily basis. She denied fevers, sweats, and chills. Antibiotics had not been prescribed. The wound failed to show improvement since it occurred, prompting referral to the [facility]. [facility] Medical History (Updated 09/21/22 @ 16:[address] 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 Home Medications armodafinil 250 mg tablet 250 mg PO DAILY 08/17/22 [History Last Taken Unknown] Surgical History History of brain surgery History of cholecystectomy History of total abdominal hysterectomy Hx of LASIK Social History Smoking Status: Never smoker Vital Signs Vital Signs Vital Signs: 09/21/22 10:38 Temperature 97.6 F L Temperature Source Temporal Pulse Rate 77 Blood Pressure 109/74 Blood Pressure Mean 85 Blood Pressure Source Monitor Weight Weight: 140 lb Body Mass Index (BMI) 22.2 Physical Exam Const alert, oriented x3, no apparent distress, average body habitus and well nourished Constitutional Narrative: The patient is alert and oriented. She appears to be cognitively intact. However, an expressive speech aphasia is identified. 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 General Appearance: cooperative, comfortable, well kempt and well developed Orientation / Consciousness: awake, oriented to person, oriented to place and oriented to time HEENT normocephalic and head/scalp atraumatic Head and Scalp: normal to inspection, normocephalic and atraumatic External Ear: external ears normal Eyes PERRL and EOMs intact bilaterally General Eye: normal appearance of both eyes Resp normal respiratory effort, normal air movement, no retractions and no use of accessory muscles Effort and Inspection: able to speak in complete sentences Extremity no calf tenderness General Extremity: Negative for clubbing or cyanosis Skin Wound Narrative: No significant swelling or edema are noted in the patient's lower extremities. A large wound is noted on the medial aspect of the right lower extremity, just below the knee. Dimensions are documented elsewhere. The wound is generally pink and healthy in appearance, with active granulation tissue. There has been significant improvement in recent weeks, with elimination of a large amount of necrotic and nonviable material at the surface of the wound. Neuro oriented x3, CN's II-XII intact bilaterally and moves all extremities Neuro Narrative: An expressive speech aphasia is noted. Sensorium / Orientation: awake, alert, oriented to person, oriented to place and oriented to time Psych Appearance: grossly normal and appropriate Attitude: calm Activity / Motor Behavior: appropriate eye contact Speech: normal speech Mood & Affect: euthymic mood Thought Process: normal thought process Thought Content: normal thought content Attention / Concentration: attention grossly intact Debridement Note Debridement Note Wound debrided: Right medial lower extremity Laterality: Right Type of Debridement: Excisional debridement Anesthesia Used: 5% Lidocaine Gel and Cetacaine Depth: Down to and including healthy tissue and in the subcutaneous layer Percentage of wound debrided: 100 and 50 Instrument Used: 5mm curette, Forceps and - (Scissors) Tissue Removed: Necrotic and nonviable tissue Severity: Fat Layer Exposed Amount of bleeding with debridement: Mild Bleeding Controlled with: Compression and gauze Patient tolerated procedure: Patient tolerated procedure well Debridement Free Text: There has been significant improvement, with elimination of the nonviable and necrotic tissue. Therefore, the decision was made to proceed with the placement of a skin substitute. TheraSkin was selected as the skin substitute of choice. A 39 cm fenestrated TheraSkin allograft was selected. Following an excisional debridement, which was well-tolerated by the patient, a TheraSkin allograft was removed from its sterile packaging, and applied topically in the appropriate orientation. The entire graft was utilized. Once placed topically, Adaptic Touch was placed over the allograft, which was then anchored in place using Steri-Strips. A dry sterile gauze dressing was then applied, which was secured in place using a gauze circumferential wrap. The patient tolerated the procedure well. Today's allograft application represents the first such allograft application of an anticipated series of applications. Post-Debridement Measurements and Additional Note: Post-Debridement Measurements/Treatment WC - Nurse 1 - General Ulcer Assessment Start: 09/21/22 09:41 Freq: Status: Active Protocol: JERICHO Activity Type Activity Date Activity User E-sign Co-sign Detail Recorded Client Recorded Date Recorded By Document 09/21/22 10:38 AK [id number] 09/21/22 10:40 NV 09/21/22 10:38 - Today's Visit Information Type of service Follow-up Visit (Physician/BENEFITS COORDINATOR ) Arrival Mode Ambulatory Patient Identification Verified (Name & Yes ) Patient Requires Transmission-Based No Precautions Safety Precautions NA Height and Weight Body Mass Index (BMI) 22.2 BMI Classification Normal Vital Signs Temperature (97.8 F-99.1 F) 97.6 F L Temperature Source Temporal Pulse Rate (60-100) 77 Pulse Location Monitor Blood Pressure (90/60-120/80) 109/74 Blood Pressure Mean 85 Source Monitor History Since Last Visit- (Skip if this is Patient's initial visit) Have you changed medications since your No last visit? Any new allergies or adverse reactions No Had a fall/change in ADL's that may No increase risk of falls Signs or symptoms of abuse and/or No neglect since last visit Have you been in the hospital since your No last visit? Has dressing in place as prescribed Yes Has compression in place as prescribed N/A Has offloadiing in place as prescribed N/A Experienced any changes in pain level or No management Left Footwear Regular Shoe Right Footwear Regular Shoe Pain Scale: 0-10 Numeric Is Patient Pain Free? No - Nurse 1 - General Ulcer Measurement Start: 09/21/22 09:41 Freq: Status: Active Protocol: Activity Type Activity Date Activity User E-sign Co-sign Detail Recorded Client Recorded Date Recorded By Document 09/21/22 10:38 MURRAY [id number] 09/21/22 10:40 MURRAY 09/21/22 10:38 Wound Center Nurse 1 #1 right medial LE -Combined with other wound No -Current Size (cm) - Length 8.4 -Current Size (cm) - Width 4.5 -Current Size (cm) - Depth 0.1 -Total Square Cm 37.80 -Date of Last Picture (Recall this 09/21/22 field) -Photo Taken Yes -Epithelialization None Present -Tunneling No -Undermining/Tunneling No -Circular Undermining No -Change in Wound Grade/Stage No -Exudate Amt Medium -Exudate Type Serosanguineous -Wound Margin Distinct, Outline Attached -Granulation Amt Large (67-100%) -Granulation Quality Red -Slough/Fibrin Yes -Necrosis Amt Small (1-33%) -Necrotic Tissue Type Adherent Slough -Structure Exposed N/A -Texture (Krupa-wound Skin Appearance) No Abnormality, Assessed -Moisture (Krupa-wound Skin Appearance) No Abnormality, Assessed -Color (Krupa-wound Skin Appearance) No Abnormality, Assessed -Temperature (Krupa-wound Skin No Abnormality Appearance) (Pt Warm) -Tenderness on Palpation (Krupa-wound No Skin Appearance) -Ulcer Cleansing Rinsed/ Irrigated with Saline -Foul Odor after Cleansing No -Anesthetic Used 4% Lidocaine Solution,5% Lidocaine Gel WC - Nurse 2 - General Ulcer CM Notes Start: 09/21/22 09:41 Freq: Status: Active Protocol: Activity Type Activity Date Activity User E-sign Co-sign Detail Recorded Client Recorded Date Recorded By Document 09/21/22 12:38 MARILIN [id number] 09/21/22 12:40 MARILIN 09/21/22 12:38 Wound Center Nurse 2 -Time 09:39 -Correct Patient Yes -Correct Side, Site, Position Yes -Correct Procedure Yes -Procedure Performed Yes -Type of Procedure Debridement -Clinical Debridement Subcutaneous -Tissue Removed Subcutaneous -Post Debridement (cm) - Length 5.0 -Post Debridement (cm) - Width 9.0 -Post Debridement (cm) - Depth 0.1 -Total Square (Post) (cm) 45.00 -Area of Debridement (cm) - Length 5.0 -Area of Debridement (cm) - Width 9.0 -Total Square (Area) (cm) 45.00 -Tunneling No -Undermining/Tunneling No -Circular Undermining No -Wound/Ulcer Outcome Not Healed -Ulcer Cleansing Rinsed/ Irrigated with Saline -Foul Odor after Cleansing No -Bioengineered Tissue Yes -Type of Bioengineered Tissue Theraskin -Expiration Date 11/12/26 -Product Lot Number [id number] -Percent Used 100 -Bleeding Controlled with Pressure -Treatment Response Procedure Tolerated Well -Debridement - Subq, 1st 20sq cm No -Apply Skin Sub - 1st 25 sq cm - Legs 1 -Theraskin (per sq cm) 39 Pain Scale: 0-10 Numeric Is Patient Pain Free? Yes WC - Nurse 3 - General Ulcer D/C NN Start: 09/21/22 09:41 Freq: Status: Active Protocol: Activity Type Activity Date Activity User E-sign Co-sign Detail Recorded Client Recorded Date Recorded By Document 09/21/22 10:38 MURRAY [id number] 09/21/22 10:40 AK 09/21/22 10:38 Vital Signs Temperature (97.8 F-99.1 F) 97.6 F L Temperature Source Temporal Pulse Rate (60-100) 77 Pulse Location Monitor Blood Pressure (90/60-120/80) 109/74 Blood Pressure Mean 85 Source Monitor Pain Scale: 0-10 Numeric Is Patient Pain Free? No Wound Care Nurse 3 #1 right medial LE -Ulcer Cleansing Rinsed/ Irrigated with Saline -Foul Odor after Cleansing No -Negative Pressure Wound Therapy N/A -Other Dressing dakins -Primary Dressing Covered/Secured with Dry Gauze & Roll Gauze, Secured with Tape WC - Visit Discharge Discharge Condition Stable Ambulatory Status Ambulatory Transportation Private Auto Accompanied by Medication Reconcilliation completed & Yes provided to patient/care provider Clinical Summary of Care Provided No Assessment/Plan Assessment/Plan (1) Non-pressure chronic ulcer of right calf with fat layer exposed: CODE(S): L97.212 - Non-pressure chronic ulcer of right calf with fat layer exposed (2) Leg wound, right: CODE(S): S81.801A - Unspecified open wound, right lower leg, initial encounter QUALIFIERS: Encounter type: subsequent encounter Qualified Code(s): S81.801D - Unspecified open wound, right lower leg, subsequent encounter (3) Necrosis: CODE(S): I96 - Gangrene, not elsewhere classified (4) GERD (gastroesophageal reflux disease): CODE(S): K21.9 - Gastro-esophageal reflux disease without esophagitis (5) Arthritis: CODE(S): M19.90 - Unspecified osteoarthritis, unspecified site (6) Asthma: CODE(S): J45.909 - Unspecified asthma, uncomplicated (7) History of brain cancer in adulthood: CODE(S): Z85.841 - Personal history of malignant neoplasm of brain (8) History of malignant neoplasm of brain in adulthood: CODE(S): Z85.841 - Personal history of malignant neoplasm of brain (9) History of seizures: CODE(S): Z87.898 - Personal history of other specified conditions (10) Expressive aphasia: CODE(S): R47.01 - Aphasia (11) TMJ (temporomandibular joint disorder): CODE(S): M26.609 - Unspecified temporomandibular joint disorder, unspecified side (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 The necrotic and gangrenous material has been eliminated. A TheraSkin allograft has been applied today, the first such application. It is to remain in place, undisturbed, until the patient returns in 1 week. Serial allograft applications are anticipated. Total time: 28 minutes
[2022-09-28 09:33] VITALS: BP 114/33; PULSE 69; TEMP 36.2; BMI 22.2
--- NOTE | 2022-09-28 13:48 | HP.PCM_ITS ---
History of Present Illness Date of Service: 09/28/22 Chief Complaint: Traumatic wound of the right leg History of Wound: This is a 61-year-old female who presented with a traumatic wound on her right medial leg. The injury occurred on August 08, 2022. The patient had a mishap while using a treadmill. She fell, impacting the medial aspect of her right leg, just below the knee. She sustained a penetrating injury and has been treated by her primary care physician since that time. She had most recently been using Silvadene topically on a daily basis. She denied fevers, sweats, and chills. Antibiotics had not been prescribed. The wound failed to show improvement since it occurred, prompting referral to the [facility]. 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 Home Medications armodafinil 250 mg tablet 250 mg PO DAILY 08/17/22 [History Last Taken Unknown] Surgical History History of brain surgery History of cholecystectomy History of total abdominal hysterectomy Hx of LASIK Social History Smoking Status: Never smoker Vital Signs Vital Signs Vital Signs: 09/28/22 09:33 Temperature 97.2 F L Temperature Source Temporal Pulse Rate 69 Blood Pressure 114/33 L Blood Pressure Mean 60 Blood Pressure Source Monitor Weight Weight: 140 lb Body Mass Index (BMI) 22.2 Physical Exam Const alert, oriented x3, no apparent distress, average body habitus and well nourished Constitutional Narrative: The patient is alert and oriented. She appears to be cognitively intact. However, an expressive speech aphasia is identified. 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 General Appearance: cooperative, comfortable, well kempt and well developed Orientation / Consciousness: awake, oriented to person, oriented to place and oriented to time HEENT normocephalic and head/scalp atraumatic Head and Scalp: normal to inspection, normocephalic and atraumatic External Ear: external ears normal Eyes PERRL and EOMs intact bilaterally General Eye: normal appearance of both eyes Resp normal respiratory effort, normal air movement, no retractions and no use of accessory muscles Effort and Inspection: able to speak in complete sentences Extremity no calf tenderness General Extremity: Negative for clubbing or cyanosis Skin Wound Narrative: No significant swelling or edema are noted in the patient's lower extremities. A large wound is noted on the medial aspect of the right lower extremity, just below the knee. Dimensions are documented elsewhere. A TheraSkin allograft was placed topically at the patient's last visit, 1 week ago. By examination, the TheraSkin allograft remains in place. It appears to be firmly adherent. There is no sign of infection or cellulitis. There is no odor. The overlying Adaptic remains in place, well anchored. Neuro oriented x3, CN's II-XII intact bilaterally and moves all extremities Neuro Narrative: An expressive speech aphasia is noted. Sensorium / Orientation: awake, alert, oriented to person, oriented to place and oriented to time Psych Appearance: grossly normal and appropriate Attitude: calm Activity / Motor Behavior: appropriate eye contact Speech: normal speech Mood & Affect: euthymic mood Thought Process: normal thought process Thought Content: normal thought content Attention / Concentration: attention grossly intact Debridement Note Debridement Note No debridement was completed: No debridement was completed today Post-Debridement Measurements and Additional Note: Post-Debridement Measurements/Treatment - Nurse 1 - General Ulcer Assessment Start: 09/21/22 09:41 Freq: Status: Active Protocol: JERICHO Activity Type Activity Date Activity User E-sign Co-sign Detail Recorded Client Recorded Date Recorded By Document 09/21/22 10:38 NC [id number] 09/21/22 10:40 NC Document 09/28/22 09:33 NC [id number] 09/28/22 09:34 MURRAY 09/21/22 09/28/22 10:38 09:33 - Today's Visit Information Type of service Follow-up Visit Nurse-only (Physician/MANAGER EXPRESS Visit ) Arrival Mode Ambulatory Patient Identification Verified (Name & Yes ) Patient Requires Transmission-Based No Precautions Safety Precautions NA Height and Weight Body Mass Index (BMI) 22.2 22.2 BMI Classification Normal Normal Vital Signs Temperature (97.8 F-99.1 F) 97.6 F L 97.2 F L Temperature Source Temporal Temporal Pulse Rate (60-100) 77 69 Pulse Location Monitor Monitor Blood Pressure (90/60-120/80) 109/74 114/33 L Blood Pressure Mean 85 60 Source Monitor Monitor History Since Last Visit- (Skip if this is Patient's initial visit) Have you changed medications since your No No last visit? Any new allergies or adverse reactions No No Had a fall/change in ADL's that may No No increase risk of falls Signs or symptoms of abuse and/or No No neglect since last visit Have you been in the hospital since your No No last visit? Has dressing in place as prescribed Yes Yes Has compression in place as prescribed N/A N/A Has offloadiing in place as prescribed N/A N/A Experienced any changes in pain level or No No management Left Footwear Regular Shoe Regular Shoe Right Footwear Regular Shoe Regular Shoe Pain Scale: 0-10 Numeric Is Patient Pain Free? No Yes WC - Nurse 1 - General Ulcer Measurement Start: 09/21/22 09:41 Freq: Status: Active Protocol: Activity Type Activity Date Activity User E-sign Co-sign Detail Recorded Client Recorded Date Recorded By Document 09/21/22 10:38 MURRAY [id number] 09/21/22 10:40 MURRAY 09/21/22 10:38 Wound Center Nurse 1 #1 right medial LE -Combined with other wound No -Current Size (cm) - Length 8.4 -Current Size (cm) - Width 4.5 -Current Size (cm) - Depth 0.1 -Total Square Cm 37.80 -Date of Last Picture (Recall this 09/21/22 field) -Photo Taken Yes -Epithelialization None Present -Tunneling No -Undermining/Tunneling No -Circular Undermining No -Change in Wound Grade/Stage No -Exudate Amt Medium -Exudate Type Serosanguineous -Wound Margin Distinct, Outline Attached -Granulation Amt Large (67-100%) -Granulation Quality Red -Slough/Fibrin Yes -Necrosis Amt Small (1-33%) -Necrotic Tissue Type Adherent Slough -Structure Exposed N/A -Texture (Krupa-wound Skin Appearance) No Abnormality, Assessed -Moisture (Krupa-wound Skin Appearance) No Abnormality, Assessed -Color (Krupa-wound Skin Appearance) No Abnormality, Assessed -Temperature (Krupa-wound Skin No Abnormality Appearance) (Pt Warm) -Tenderness on Palpation (Krupa-wound No Skin Appearance) -Ulcer Cleansing Rinsed/ Irrigated with Saline -Foul Odor after Cleansing No -Anesthetic Used 4% Lidocaine Solution,5% Lidocaine Gel WC - Nurse 2 - General Ulcer CM Notes Start: 09/21/22 09:41 Freq: Status: Active Protocol: Activity Type Activity Date Activity User E-sign Co-sign Detail Recorded Client Recorded Date Recorded By Document 09/21/22 12:38 PL [id number] 09/21/22 12:40 PL 09/21/22 12:38 Wound Center Nurse 2 -Time 09:39 -Correct Patient Yes -Correct Side, Site, Position Yes -Correct Procedure Yes -Procedure Performed Yes -Type of Procedure Debridement -Clinical Debridement Subcutaneous -Tissue Removed Subcutaneous -Post Debridement (cm) - Length 5.0 -Post Debridement (cm) - Width 9.0 -Post Debridement (cm) - Depth 0.1 -Total Square (Post) (cm) 45.00 -Area of Debridement (cm) - Length 5.0 -Area of Debridement (cm) - Width 9.0 -Total Square (Area) (cm) 45.00 -Tunneling No -Undermining/Tunneling No -Circular Undermining No -Wound/Ulcer Outcome Not Healed -Ulcer Cleansing Rinsed/ Irrigated with Saline -Foul Odor after Cleansing No -Bioengineered Tissue Yes -Type of Bioengineered Tissue Theraskin -Expiration Date 11/12/26 -Product Lot Number [id number] -Percent Used 100 -Bleeding Controlled with Pressure -Treatment Response Procedure Tolerated Well -Debridement - Subq, 1st 20sq cm No -Apply Skin Sub - 1st 25 sq cm - Legs 1 -Theraskin (per sq cm) 39 Pain Scale: 0-10 Numeric Is Patient Pain Free? Yes WC - Nurse 3 - General Ulcer D/C NN Start: 09/21/22 09:41 Freq: Status: Active Protocol: Activity Type Activity Date Activity User E-sign Co-sign Detail Recorded Client Recorded Date Recorded By Document 09/21/22 10:38 AK [id number] 09/21/22 10:40 AK Document 09/28/22 09:39 AK [id number] 09/28/22 09:39 AK 09/21/22 09/28/22 10:38 09:39 Vital Signs Temperature (97.8 F-99.1 F) 97.6 F L Temperature Source Temporal Pulse Rate (60-100) 77 Pulse Location Monitor Blood Pressure (90/60-120/80) 109/74 Blood Pressure Mean 85 Source Monitor Pain Scale: 0-10 Numeric Is Patient Pain Free? No Yes Wound Care Nurse 3 #1 right medial LE -Ulcer Cleansing Rinsed/ Irrigated with Saline -Foul Odor after Cleansing No -Negative Pressure Wound Therapy N/A -Other Dressing dakins -Primary Dressing Covered/Secured with Dry Gauze & Dry Gauze & Roll Gauze, Roll Gauze, Secured with Secured with Tape Tape WC - Visit Discharge Discharge Condition Stable Stable Ambulatory Status Ambulatory Ambulatory Transportation Private Auto Private Auto Accompanied by Medication Reconcilliation completed & Yes Yes provided to patient/care provider Clinical Summary of Care Provided No Yes Assessment/Plan Assessment/Plan (1) Non-pressure chronic ulcer of right calf with fat layer exposed: CODE(S): L97.212 - Non-pressure chronic ulcer of right calf with fat layer exposed (2) Leg wound, right: CODE(S): S81.801A - Unspecified open wound, right lower leg, initial encounter QUALIFIERS: Encounter type: subsequent encounter Qualified Code(s): S81.801D - Unspecified open wound, right lower leg, subsequent encounter (3) Necrosis: CODE(S): I96 - Gangrene, not elsewhere classified (4) GERD (gastroesophageal reflux disease): CODE(S): K21.9 - Gastro-esophageal reflux disease without esophagitis (5) Arthritis: CODE(S): M19.90 - Unspecified osteoarthritis, unspecified site (6) Asthma: CODE(S): J45.909 - Unspecified asthma, uncomplicated (7) History of brain cancer in adulthood: CODE(S): Z85.841 - Personal history of malignant neoplasm of brain (8) History of malignant neoplasm of brain in adulthood: CODE(S): Z85.841 - Personal history of malignant neoplasm of brain (9) History of seizures: CODE(S): Z87.898 - Personal history of other specified conditions (10) Expressive aphasia: CODE(S): R47.01 - Aphasia (11) TMJ (temporomandibular joint disorder): CODE(S): M26.609 - Unspecified temporomandibular joint disorder, unspecified side (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 The necrotic and gangrenous material has been eliminated. A TheraSkin allograft was applied 1 week ago, and remains in place at this time. This allograft represents the first such application. The decision was made to leave the allograft in place for 1 more week. It appears to be well adhered, and without signs of infection or drainage. It is to remain in place, undisturbed, until the patient returns in 1 week. Serial allograft applications are anticipated. Total time: 25 minutes
[2022-10-05 09:35] VITALS: BP 115/57; PULSE 69; TEMP 36.2; BMI 22.2
--- NOTE | 2022-10-05 18:21 | HP.PCM_ITS ---
History of Present Illness Date of Service: 10/05/22 Chief Complaint: Traumatic wound of the right leg History of Wound: This is a 61-year-old female who presented with a traumatic wound on her right medial leg. The injury occurred on August 08, 2022. The patient had a mishap while using a treadmill. She fell, impacting the medial aspect of her right leg, just below the knee. She sustained a penetrating injury and has been treated by her primary care physician since that time. She had most recently been using Silvadene topically on a daily basis. She denied fevers, sweats, and chills. Antibiotics had not been prescribed. The wound failed to show improvement since it occurred, prompting referral to the [facility]. 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 Home Medications armodafinil 250 mg tablet 250 mg PO DAILY 08/17/22 [History Last Taken Unknown] Surgical History History of brain surgery History of cholecystectomy History of total abdominal hysterectomy Hx of LASIK Social History Smoking Status: Never smoker Vital Signs Vital Signs Vital Signs: 10/05/22 09:35 Temperature 97.2 F L Temperature Source Temporal Pulse Rate 69 Blood Pressure 115/57 L Blood Pressure Mean 76 Blood Pressure Source Monitor Weight Weight: 140 lb Body Mass Index (BMI) 22.2 Physical Exam Const alert, oriented x3, no apparent distress, average body habitus and well nourished Constitutional Narrative: The patient is alert and oriented. She appears to be cognitively intact. However, an expressive speech aphasia is identified. 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 General Appearance: cooperative, comfortable, well kempt and well developed Orientation / Consciousness: awake, oriented to person, oriented to place and oriented to time HEENT normocephalic and head/scalp atraumatic Head and Scalp: normal to inspection, normocephalic and atraumatic External Ear: external ears normal Eyes PERRL and EOMs intact bilaterally General Eye: normal appearance of both eyes Resp normal respiratory effort, normal air movement, no retractions and no use of accessory muscles Effort and Inspection: able to speak in complete sentences Extremity no calf tenderness General Extremity: Negative for clubbing or cyanosis Skin Wound Narrative: No significant swelling or edema are noted in the patient's lower extremities. A large wound is noted on the medial aspect of the right lower extremity, just below the knee. Dimensions are documented elsewhere. The wound appears smaller in size. A TheraSkin allograft was placed topically 2 weeks ago. Very few remnants remaining from the original TheraSkin allograft. There is no sign of infection or cellulitis. A small amount of bioburden is noted to be present. Neuro oriented x3, CN's II-XII intact bilaterally and moves all extremities Neuro Narrative: An expressive speech aphasia is noted. Sensorium / Orientation: awake, alert, oriented to person, oriented to place and oriented to time Psych Appearance: grossly normal and appropriate Attitude: calm Activity / Motor Behavior: appropriate eye contact Speech: normal speech Mood & Affect: euthymic mood Thought Process: normal thought process Thought Content: normal thought content Attention / Concentration: attention grossly intact Debridement Note Debridement Note Wound debrided: Right medial lower extremity, below knee Laterality: Right Type of Debridement: Excisional debridement Anesthesia Used: 5% Lidocaine Gel Depth: Down to and including healthy tissue and in the subcutaneous layer Percentage of wound debrided: 100 Instrument Used: 5mm curette Tissue Removed: Bioburden Severity: Fat Layer Exposed Amount of bleeding with debridement: Mild Bleeding Controlled with: Compression and gauze Patient tolerated procedure: Patient tolerated procedure well Debridement Free Text: Following a routine excisional debridement, which was well-tolerated by the patient, the second TheraSkin allograft was selected for application. A 39 cm? allograft was removed from its sterile packaging. It was then positioned in the appropriate orientation, and placed topically over the open wound. The entire portion of the allograft was utilized. Once in place, Adaptic Touch was placed over top, and was anchored using Steri-Strips. The entire procedure was well-tolerated by the patient. Today's allograft application represents the second such application of a TheraSkin allograft. No debridement was completed: No debridement was completed today Post-Debridement Measurements and Additional Note: Post-Debridement Measurements/Treatment WC - Nurse 1 - General Ulcer Assessment Start: 09/21/22 09:41 Freq: Status: Active Protocol: JERICHO Activity Type Activity Date Activity User E-sign Co-sign Detail Recorded Client Recorded Date Recorded By Document 09/21/22 10:38 MURRAY [id number] 09/21/22 10:40 AK Document 09/28/22 09:33 AK [id number] 09/28/22 09:34 AK Document 10/05/22 09:35 ND [id number] 10/05/22 09:45 AK 09/21/22 09/28/22 10/05/22 10:38 09:33 09:35 WC - Today's Visit Information Type of service Follow-up Visit Nurse-only Follow-up Visit (Physician/[employer] SUPERVISOR Visit (Physician/[employer] SUPERVISOR ) ) Arrival Mode Ambulatory Ambulatory Patient Identification Verified (Name & Yes Yes ) Patient Requires Transmission-Based No No Precautions Safety Precautions NA NA Height and Weight Body Mass Index (BMI) 22.2 22.2 22.2 BMI Classification Normal Normal Normal Vital Signs Temperature (97.8 F-99.1 F) 97.6 F L 97.2 F L 97.2 F L Temperature Source Temporal Temporal Temporal Pulse Rate (60-100) 77 69 69 Pulse Location Monitor Monitor Monitor Blood Pressure (90/60-120/80) 109/74 114/33 L 115/57 L Blood Pressure Mean 85 60 76 Source Monitor Monitor Monitor History Since Last Visit- (Skip if this is Patient's initial visit) Have you changed medications since your No No No last visit? Any new allergies or adverse reactions No No No Had a fall/change in ADL's that may No No No increase risk of falls Signs or symptoms of abuse and/or No No No neglect since last visit Have you been in the hospital since your No No No last visit? Has dressing in place as prescribed Yes Yes Yes Has compression in place as prescribed N/A N/A N/A Has offloadiing in place as prescribed N/A N/A N/A Experienced any changes in pain level or No No No management Left Footwear Regular Shoe Regular Shoe Regular Shoe Right Footwear Regular Shoe Regular Shoe Regular Shoe Pain Scale: 0-10 Numeric Is Patient Pain Free? No Yes No WC - Nurse 1 - General Ulcer Measurement Start: 09/21/22 09:41 Freq: Status: Active Protocol: Activity Type Activity Date Activity User E-sign Co-sign Detail Recorded Client Recorded Date Recorded By Document 09/21/22 10:38 AK [id number] 09/21/22 10:40 AK Document 10/05/22 09:35 ND [id number] 10/05/22 09:45 AK 09/21/22 10/05/22 10:38 09:35 Wound Center Nurse 1 #1 right medial LE -Combined with other wound No No -Current Size (cm) - Length 8.4 2.5 -Current Size (cm) - Width 4.5 6.5 -Current Size (cm) - Depth 0.1 0.1 -Total Square Cm 37.80 16.25 -Date of Last Picture (Recall this 09/21/22 10/05/22 field) -Photo Taken Yes Yes -Epithelialization None Present -Tunneling No No -Undermining/Tunneling No No -Circular Undermining No No -Change in Wound Grade/Stage No No -Exudate Amt Medium Medium -Exudate Type Serosanguineous Serosanguineous -Wound Margin Distinct, Distinct, Outline Outline Attached Attached -Granulation Amt Large (67-100%) Large (67-100%) -Granulation Quality Red [place],Red -Slough/Fibrin Yes Yes -Necrosis Amt Small (1-33%) Small (1-33%) -Necrotic Tissue Type Adherent Slough Adherent Slough -Structure Exposed N/A N/A -Texture (Krupa-wound Skin Appearance) No Abnormality, No Abnormality, Assessed Assessed -Moisture (Krupa-wound Skin Appearance) No Abnormality, No Abnormality, Assessed Assessed -Color (Krupa-wound Skin Appearance) No Abnormality, No Abnormality, Assessed Assessed -Temperature (Krupa-wound Skin No Abnormality No Abnormality Appearance) (Pt Warm) (Pt Warm) -Tenderness on Palpation (Krupa-wound No No Skin Appearance) -Ulcer Cleansing Rinsed/ Soap and Water Irrigated with Saline -Foul Odor after Cleansing No No -Anesthetic Used 4% Lidocaine 4% Lidocaine Solution,5% Solution,5% Lidocaine Gel Lidocaine Gel WC - Nurse 2 - General Ulcer CM Notes Start: 09/21/22 09:41 Freq: Status: Active Protocol: Activity Type Activity Date Activity User E-sign Co-sign Detail Recorded Client Recorded Date Recorded By Document 09/21/22 12:38 PL [id number] 09/21/22 12:40 PL Document 10/05/22 12:09 PL [id number] 10/05/22 12:11 PL 09/21/22 10/05/22 12:38 12:09 Wound Center Nurse 2 #1 right medial LE -Time 09:39 10:10 -Correct Patient Yes Yes -Correct Side, Site, Position Yes Yes -Correct Procedure Yes Yes -Procedure Performed Yes Yes -Type of Procedure Debridement Debridement -Clinical Debridement Subcutaneous Subcutaneous -Tissue Removed Subcutaneous Subcutaneous -Post Debridement (cm) - Length 5.0 6.5 -Post Debridement (cm) - Width 9.0 2.5 -Post Debridement (cm) - Depth 0.1 0.1 -Total Square (Post) (cm) 45.00 16.25 -Area of Debridement (cm) - Length 5.0 6.5 -Area of Debridement (cm) - Width 9.0 2.5 -Total Square (Area) (cm) 45.00 16.25 -Tunneling No No -Undermining/Tunneling No No -Circular Undermining No No -Wound/Ulcer Outcome Not Healed Not Healed -Ulcer Cleansing Rinsed/ Rinsed/ Irrigated with Irrigated with Saline Saline -Foul Odor after Cleansing No No -Bioengineered Tissue Yes Yes -Type of Bioengineered Tissue Theraskin Theraskin -Expiration Date 11/12/26 11/11/26 -Product Lot Number [id number] -Percent Used 100 100 -Bleeding Controlled with Pressure Pressure -Treatment Response Procedure Procedure Tolerated Well Tolerated Well -Debridement - Subq, 1st 20sq cm No No -Apply Skin Sub - 1st 25 sq cm - Legs 1 1 -Theraskin (per sq cm) 39 39 Pain Scale: 0-10 Numeric Is Patient Pain Free? Yes Yes - Nurse 3 - General Ulcer D/C NN Start: 09/21/22 09:41 Freq: Status: Active Protocol: Activity Type Activity Date Activity User E-sign Co-sign Detail Recorded Client Recorded Date Recorded By Document 09/21/22 10:38 AK [id number] 09/21/22 10:40 AK Document 09/28/22 09:39 AK [id number] 09/28/22 09:39 AK Document 10/05/22 11:07 AK [id number] 10/05/22 11:08 AK Document 10/05/22 11:50 MT [id number] 10/05/22 11:51 TN 09/21/22 09/28/22 10/05/22 10:38 09:39 11:07 Vital Signs Temperature (97.8 F-99.1 F) 97.6 F L Temperature Source Temporal Pulse Rate (60-100) 77 Pulse Location Monitor Blood Pressure (90/60-120/80) 109/74 Blood Pressure Mean 85 Source Monitor Pain Scale: 0-10 Numeric Is Patient Pain Free? No Yes Yes Wound Care Nurse 3 #1 right medial LE -Ulcer Cleansing Rinsed/ Irrigated with Saline -Foul Odor after Cleansing No No -Negative Pressure Wound Therapy N/A N/A -Other Dressing dakins -Primary Dressing Covered/Secured with Dry Gauze & Dry Gauze & Roll Gauze, Roll Gauze, Secured with Secured with Tape Tape Right -Tubular Bandage Single Layer -Size of Tubigrip Used Size E -Size E ($) 1 WC - Visit Discharge Discharge Condition Stable Stable Stable Ambulatory Status Ambulatory Ambulatory Ambulatory Transportation Private Auto Private Auto Private Auto Accompanied by Medication Reconcilliation completed & Yes Yes Yes provided to patient/care provider Clinical Summary of Care Provided No Yes Yes Notes: 10/05/22 11:50 Vital Signs Temperature (97.8 F-99.1 F) Temperature Source Pulse Rate (60-100) Pulse Location Blood Pressure (90/60-120/80) Blood Pressure Mean Source Pain Scale: 0-10 Numeric Is Patient Pain Free? Yes Wound Care Nurse 3 #1 right medial LE -Ulcer Cleansing -Foul Odor after Cleansing -Negative Pressure Wound Therapy -Other Dressing -Primary Dressing Covered/Secured with Dry Gauze & Roll Gauze, Secured with Tape Right -Tubular Bandage Single Layer -Size of Tubigrip Used Size E -Size E ($) 1 WC - Visit Discharge Discharge Condition Stable Ambulatory Status Ambulatory Transportation Private Auto Accompanied by Medication Reconcilliation completed & No provided to patient/care provider Clinical Summary of Care Provided Yes Notes: pt understands to keep wound dry Assessment/Plan Assessment/Plan (1) Non-pressure chronic ulcer of right calf with fat layer exposed: CODE(S): L97.212 - Non-pressure chronic ulcer of right calf with fat layer exposed (2) Leg wound, right: CODE(S): S81.801A - Unspecified open wound, right lower leg, initial encounter QUALIFIERS: Encounter type: subsequent encounter Qualified Co de(s): S81.801D - Unspecified open wound, right lower leg, subsequent encounter (3) Necrosis: CODE(S): I96 - Gangrene, not elsewhere classified (4) GERD (gastroesophageal reflux disease): CODE(S): K21.9 - Gastro-esophageal reflux disease without esophagitis (5) Arthritis: CODE(S): M19.90 - Unspecified osteoarthritis, unspecified site (6) Asthma: CODE(S): J45.909 - Unspecified asthma, uncomplicated (7) History of brain cancer in adulthood: CODE(S): Z85.841 - Personal history of malignant neoplasm of brain (8) History of malignant neoplasm of brain in adulthood: CODE(S): Z85.841 - Personal history of malignant neoplasm of brain (9) History of seizures: CODE(S): Z87.898 - Personal history of other specified conditions (10) Expressive aphasia: CODE(S): R47.01 - Aphasia (11) TMJ (temporomandibular joint disorder): CODE(S): M26.609 - Unspecified temporomandibular joint disorder, unspecified side (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 The necrotic and gangrenous material has been eliminated. The first TheraSkin allograft was applied 2 weeks ago, resulting in a decrease in the size of the wound. A second TheraSkin allograft was applied today, following a routine excisional debridement. The allograft is to remain in place, undisturbed, until the patient returns in 2 weeks. The patient and her have been advised to contact wound center personnel should they notice any signs that may suggest infection or deterioration of the wound or graft. Total time: 26 minutes
== END 2022-10-16 23:59 | disposition home or self-care (01) ==
LOC: WC 09:30
PROVIDERS: PCP Family Medicine; Visit Provider Surgery
DX: I96 Gangrene, not elsewhere classified (principal); L97.212 Non-pressure chronic ulcer of right calf with fat layer exposed; G83.84 Todd's paralysis (postepileptic); S81.831S Puncture wound without foreign body, right lower leg, sequela; W17.89XS Other fall from one level to another, sequela; R47.01 Aphasia; J45.909 Unspecified asthma, uncomplicated; M19.90 Unspecified osteoarthritis, unspecified site; M26.609 Unspecified temporomandibular joint disorder, unspecified side; K21.9 Gastro-esophageal reflux disease without esophagitis; Z85.841 Personal history of malignant neoplasm of brain; Z87.898 Personal history of other specified conditions; Z90.710 Acquired absence of both cervix and uterus
CPT/HCPCS: 15271; 99213; Q4121; G0463

== ENCOUNTER 2022-11-09 09:30 | Outpatient (RCR) | payer MEDICARE, SELFPAY ==
[2022-10-17 00:10] VITALS: BP 115/57; PULSE 69; RESP 16; TEMP 36.2; BMI 22.2
[2022-10-19 11:43] VITALS: BP 106/48; PULSE 72; TEMP 36.6; BMI 22.2
--- NOTE | 2022-10-19 12:19 | HP.PCM_ITS ---
History of Present Illness Date of Service: 10/19/22 Chief Complaint: Traumatic wound of the right leg History of Wound: This is a 61-year-old female who presented with a traumatic wound on her right medial leg. The injury occurred on August 08, 2022. The patient had a mishap while using a treadmill. She fell, impacting the medial aspect of her right leg, just below the knee. She sustained a penetrating injury and has been treated by her primary care physician since that time. She had most recently been using Silvadene topically on a daily basis. She denied fevers, sweats, and chills. Antibiotics had not been prescribed. The wound failed to show improvement since it occurred, prompting referral to the [facility]. 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 Home Medications armodafinil 250 mg tablet 250 mg PO DAILY 08/17/22 [History Last Taken Unknown] Surgical History History of brain surgery History of cholecystectomy History of total abdominal hysterectomy Hx of LASIK Social History Smoking Status: Never smoker Vital Signs Vital Signs Vital Signs: 10/19/22 11:43 Temperature 97.8 F Temperature Source Temporal Pulse Rate 72 Blood Pressure 106/48 L Blood Pressure Mean 67 Blood Pressure Source Monitor Weight Weight: 140 lb Body Mass Index (BMI) 22.2 Physical Exam Const alert, oriented x3, no apparent distress, average body habitus and well nourished Constitutional Narrative: The patient is alert and oriented. She appears to be cognitively intact. However, an expressive speech aphasia is identified. 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 General Appearance: cooperative, comfortable, well kempt and well developed Orientation / Consciousness: awake, oriented to person, oriented to place and oriented to time HEENT normocephalic and head/scalp atraumatic Head and Scalp: normal to inspection, normocephalic and atraumatic External Ear: external ears normal Eyes PERRL and EOMs intact bilaterally General Eye: normal appearance of both eyes Resp normal respiratory effort, normal air movement, no retractions and no use of accessory muscles Effort and Inspection: able to speak in complete sentences Extremity no calf tenderness General Extremity: Negative for clubbing or cyanosis Skin Wound Narrative: No significant swelling or edema are noted in the patient's lower extremities. A large wound is noted on the medial aspect of the right lower extremity, just below the knee. Dimensions are documented elsewhere. The wound appears smaller in size. A TheraSkin allograft was placed topically 2 weeks ago. A few remnants remain from the original TheraSkin allograft. There is no sign of infection or cellulitis. A small amount of bioburden is noted to be present. Neuro oriented x3, CN's II-XII intact bilaterally and moves all extremities Neuro Narrative: An expressive speech aphasia is noted. Sensorium / Orientation: awake, alert, oriented to person, oriented to place and oriented to time Psych Appearance: grossly normal and appropriate Attitude: calm Activity / Motor Behavior: appropriate eye contact Speech: normal speech Mood & Affect: euthymic mood Thought Process: normal thought process Thought Content: normal thought content Attention / Concentration: attention grossly intact Debridement Note Debridement Note Wound debrided: Right medial lower extremity, below knee Laterality: Right Type of Debridement: Excisional debridement Anesthesia Used: 5% Lidocaine Gel Depth: Down to and including healthy tissue and in the subcutaneous layer Percentage of wound debrided: 100 Instrument Used: 5mm curette Tissue Removed: Bioburden Severity: Fat Layer Exposed Amount of bleeding with debridement: Mild Bleeding Controlled with: Compression and gauze Patient tolerated procedure: Patient tolerated procedure well Debridement Free Text: Following a routine excisional debridement, which was well-tolerated by the patient, the third TheraSkin allograft was selected for application. A 26 cm? allograft was removed from its sterile packaging. It was then positioned in the appropriate orientation, and placed topically over the open wound. The entire portion of the allograft was utilized. Once in place, Adaptic Touch was placed over top, and was anchored using Steri-Strips. The entire procedure was well-tolerated by the patient. Today's allograft application represents the third such application of a TheraSkin allograft. No debridement was completed: No debridement was completed today Post-Debridement Measurements and Additional Note: Post-Debridement Measurements/Treatment JODI - Nurse 1 - General Ulcer Assessment Start: 10/19/22 11:37 Freq: Status: Active Protocol: JERICHO Activity Type Activity Date Activity User E-sign Co-sign Detail Recorded Client Recorded Date Recorded By Document 10/19/22 11:43 MURRAY [id number] 10/19/22 11:48 MURRAY 10/19/22 11:43 WC - Today's Visit Information Type of service Follow-up Visit (Physician/WEB RETAILER ) Arrival Mode Ambulatory Patient Identification Verified (Name & Yes ) Patient Requires Transmission-Based No Precautions Height and Weight Body Mass Index (BMI) 22.2 BMI Classification Normal Vital Signs Temperature (97.8 F-99.1 F) 97.8 F Temperature Source Temporal Pulse Rate (60-100) 72 Pulse Location Monitor Blood Pressure (90/60-120/80) 106/48 L Blood Pressure Mean 67 Source Monitor History Since Last Visit- (Skip if this is Patient's initial visit) Have you changed medications since your No last visit? Any new allergies or adverse reactions No Had a fall/change in ADL's that may No increase risk of falls Signs or symptoms of abuse and/or No neglect since last visit Have you been in the hospital since your No last visit? Has dressing in place as prescribed Yes Has compression in place as prescribed N/A Has offloadiing in place as prescribed N/A Experienced any changes in pain level or No management Left Footwear Regular Shoe Right Footwear Regular Shoe Pain Scale: 0-10 Numeric Is Patient Pain Free? Yes JODI - Nurse 1 - General Ulcer Measurement Start: 10/19/22 11:37 Freq: Status: Active Protocol: Activity Type Activity Date Activity User E-sign Co-sign Detail Recorded Client Recorded Date Recorded By Document 10/19/22 11:43 MURRAY [id number] 10/19/22 11:48 MURRAY 10/19/22 11:43 Wound Center Nurse 1 #1 right medial LE -Combined with other wound No -Wound Comment(s) couldn't measure- had to soak with 4% lidocaine because graph was stuck on. JODI - Nurse 3 - General Ulcer D/C NN Start: 10/19/22 11:37 Freq: Status: Active Protocol: Activity Type Activity Date Activity User E-sign Co-sign Detail Recorded Client Recorded Date Recorded By Document 10/19/22 11:56 MW [id number] 10/19/22 11:57 MW 10/19/22 11:56 Wound Care Nurse 3 -Ulcer Cleansing Not Cleansed -Foul Odor after Cleansing No -Negative Pressure Wound Therapy N/A -Primary Dressing Covered/Secured with Dry Gauze & Roll Gauze, Secured with Tape Treatment Response Procedure Tolerated Well Pain Scale: 0-10 Numeric Is Patient Pain Free? Yes Teaching: Wound Center Dressing Your Wound -Person Taught Patient,Family -Teaching Method Discussion, Demonstration -Response to teaching Verbalize understanding WC - Visit Discharge Discharge Condition Stable Ambulatory Status Ambulatory Transportation Private Auto Accompanied by Medication Reconcilliation completed & No provided to patient/care provider Clinical Summary of Care Provided Yes Assessment/Plan Assessment/Plan (1) Non-pressure chronic ulcer of right calf with fat layer exposed: CODE(S): L97.212 - Non-pressure chronic ulcer of right calf with fat layer exposed (2) Leg wound, right: CODE(S): S81.801A - Unspecified open wound, right lower leg, initial encounter QUALIFIERS: Encounter type: subsequent encounter Qualified Code(s): S81.801D - Unspecified open wound, right lower leg, subsequent encounter (3) Necrosis: CODE(S): I96 - Gangrene, not elsewhere classified (4) GERD (gastroesophageal reflux disease): CODE(S): K21.9 - Gastro-esophageal reflux disease without esophagitis (5) Arthritis: CODE(S): M19.90 - Unspecified osteoarthritis, unspecified site (6) Asthma: CODE(S): J45.909 - Unspecified asthma, uncomplicated (7) History of brain cancer in adulthood: CODE(S): Z85.841 - Personal history of malignant neoplasm of brain (8) History of malignant neoplasm of brain in adulthood: CODE(S): Z85.841 - Personal history of malignant neoplasm of brain (9) History of seizures: CODE(S): Z87.898 - Personal history of other specified conditions (10) Expressive aphasia: CODE(S): R47.01 - Aphasia (11) TMJ (temporomandibular joint disorder): CODE(S): M26.609 - Unspecified temporomandibular joint disorder, unspecified side (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 The necrotic and gangrenous material has been eliminated. The wound appears to be decreasing in size in recent weeks with the implementation of allograft applications. The third TheraSkin allograft was applied today. The allograft is to remain in place, undisturbed, until the patient returns in 1 weeks. The patient and her have been advised to contact Wound Center personnel should they notice any signs that may suggest infection or deterioration of the wound or graft. Total time: 28 minutes
[2022-10-26 14:13] VITALS: BP 124/70; PULSE 70; RESP 18; TEMP 35.4; BMI 22.2
--- NOTE | 2022-10-26 16:40 | HP.PCM_ITS ---
History of Present Illness Date of Service: 10/26/22 Chief Complaint: Traumatic wound of the right leg History of Wound: This is a 61-year-old female who presented with a traumatic wound on her right medial leg. The injury occurred on August 08, 2022. The patient had a mishap while using a treadmill. She fell, impacting the medial aspect of her right leg, just below the knee. She sustained a penetrating injury and has been treated by her primary care physician since that time. She had most recently been using Silvadene topically on a daily basis. She denied fevers, sweats, and chills. Antibiotics had not been prescribed. The wound failed to show improvement since it occurred, prompting referral to the [facility]. 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 Home Medications armodafinil 250 mg tablet 250 mg PO DAILY 08/17/22 [History Last Taken Unknown] Surgical History History of brain surgery History of cholecystectomy History of total abdominal hysterectomy Hx of LASIK Social History Smoking Status: Never smoker Vital Signs Vital Signs Vital Signs: 10/26/22 14:13 Temperature 95.7 F L Temperature Source Temporal Pulse Rate 70 Respiratory Rate 18 Blood Pressure 124/70 H Blood Pressure Mean 88 Blood Pressure Source Monitor Blood Pressure Position Sitting Blood Pressure Location Left Arm Oxygen Delivery Method Room Air Weight Weight: 140 lb Body Mass Index (BMI) 22.2 Physical Exam Const alert, oriented x3, no apparent distress, average body habitus and well nourished Constitutional Narrative: The patient is alert and oriented. She appears to be cognitively intact. However, an expressive speech aphasia is identified. 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 General Appearance: cooperative, comfortable, well kempt and well developed Orientation / Consciousness: awake, oriented to person, oriented to place and oriented to time HEENT normocephalic and head/scalp atraumatic Head and Scalp: normal to inspection, normocephalic and atraumatic External Ear: external ears normal Eyes PERRL and EOMs intact bilaterally General Eye: normal appearance of both eyes Resp normal respiratory effort, normal air movement, no retractions and no use of accessory muscles Effort and Inspection: able to speak in complete sentences Extremity no calf tenderness General Extremity: Negative for clubbing or cyanosis Skin Wound Narrative: No significant swelling or edema are noted in the patient's lower extremities. A wound is noted on the medial aspect of the right lower extremity, just below the knee. Dimensions are documented elsewhere. The wound continues to decrease in size. A TheraSkin allograft was placed topically 1 weeks ago. Remnants remain from the most recent TheraSkin allograft. There is no sign of infection or cellulitis. A small amount of bioburden is noted to be present. Neuro oriented x3, CN's II-XII intact bilaterally and moves all extremities Neuro Narrative: An expressive speech aphasia is noted. Sensorium / Orientation: awake, alert, oriented to person, oriented to place and oriented to time Psych Appearance: grossly normal and appropriate Attitude: calm Activity / Motor Behavior: appropriate eye contact Speech: normal speech Mood & Affect: euthymic mood Thought Process: normal thought process Thought Content: normal thought content Attention / Concentration: attention grossly intact Debridement Note Debridement Note Wound debrided: Right medial lower extremity, below knee Laterality: Right Type of Debridement: Excisional debridement Anesthesia Used: 5% Lidocaine Gel Depth: Down to and including healthy tissue and in the subcutaneous layer Percentage of wound debrided: 100 Instrument Used: 5mm curette Tissue Removed: Bioburden Severity: Fat Layer Exposed Amount of bleeding with debridement: Mild Bleeding Controlled with: Compression and gauze Patient tolerated procedure: Patient tolerated procedure well Debridement Free Text: Following a routine excisional debridement, which was well-tolerated by the patient, the 4th TheraSkin allograft was selected for application. A 13 cm? allograft was removed from its sterile packaging. It was then positioned in the appropriate orientation, and placed topically over the open wound. The entire portion of the allograft was utilized. Once in place, Adaptic Touch was placed over top, and was anchored using Steri-Strips. The entire procedure was well-tolerated by the patient. Today's allograft application represents the 4th such application of a TheraSkin allograft. Post-Debridement Measurements and Additional Note: Post-Debridement Measurements/Treatment WC - Nurse 1 - General Ulcer Assessment Start: 10/19/22 11:37 Freq: Status: Active Protocol: JERICHO Activity Type Activity Date Activity User E-sign Co-sign Detail Recorded Client Recorded Date Recorded By Document 10/19/22 11:43 AK [id number] 10/19/22 11:48 AK Document 10/26/22 14:13 MW [id number] 10/26/22 14:17 MW Edit Result 10/26/22 14:13 MW (1) [id number] 10/26/22 14:19 MW (1) Pulse Rate (60-100) => 70 Pulse Location => Monitor Respiratory Rate (12-18) => 18 Respiratory rate source => Observation Oxygen Delivery Method => Room Air Blood Pressure (90/60-120/80) => 124/70 H Blood Pressure Mean => 88 Source => Monitor Position => Sitting Blood Pressure Location => Left Arm 10/19/22 10/26/22 11:43 14:13 - Today's Visit Information Type of service Follow-up Visit Follow-up Visit (Physician/TILE AND MARBLE SETTER (Physician/TILE AND MARBLE SETTER ) ) Arrival Mode Ambulatory Ambulatory Transfer Assistance None Accompanied by mother in law Patient Identification Verified (Name & Yes Yes ) Patient Requires Transmission-Based No No Precautions Safety Precautions NA Height and Weight Body Mass Index (BMI) 22.2 22.2 BMI Classification Normal Normal Vital Signs Temperature (97.8 F-99.1 F) 97.8 F 95.7 F L Temperature Source Temporal Temporal Pulse Rate (60-100) 72 70 Pulse Location Monitor Monitor Respiratory Rate (12-18) 18 Respiratory rate source Observation Oxygen Delivery Method Room Air Blood Pressure (90/60-120/80) 106/48 L 124/70 H Blood Pressure Mean 67 88 Source Monitor Monitor Position Sitting Blood Pressure Location Left Arm History Since Last Visit- (Skip if this is Patient's initial visit) Have you changed medications since your No No last visit? Any new allergies or adverse reactions No No Had a fall/change in ADL's that may No No increase risk of falls Signs or symptoms of abuse and/or No No neglect since last visit Have you been in the hospital since your No No last visit? Has dressing in place as prescribed Yes Yes Has compression in place as prescribed N/A N/A Has offloadiing in place as prescribed N/A N/A Experienced any changes in pain level or No No management Left Footwear Regular Shoe Regular Shoe Right Footwear Regular Shoe Regular Shoe Pain Scale: 0-10 Numeric Is Patient Pain Free? Yes Yes WC - Nurse 1 - General Ulcer Measurement Start: 10/19/22 11:37 Freq: Status: Active Protocol: Activity Type Activity Date Activity User E-sign Co-sign Detail Recorded Client Recorded Date Recorded By Document 10/19/22 11:43 AK [id number] 10/19/22 11:48 AK Document 10/26/22 14:13 MW [id number] 10/26/22 14:17 MW 10/19/22 10/26/22 11:43 14:13 Wound Center Nurse 1 #1 right medial LE -Combined with other wound No No -Current Size (cm) - Length 0.1 -Current Size (cm) - Width 0.1 -Current Size (cm) - Depth 0.1 -Total Square Cm 0.01 -Photo Taken No -Epithelialization None Present -Tunneling No -Undermining/Tunneling No -Circular Undermining No -Exudate Amt Small -Exudate Type Serosanguineous -Wound Margin Flat & Intact -Granulation Amt None Present (0 %) -Granulation Quality N/A -Slough/Fibrin Yes -Necrosis Amt Large (67-100%) -Necrotic Tissue Type Adherent Slough -Structure Exposed N/A -Texture (Krupa-wound Skin Appearance) Assessed, Scarring -Moisture (Krupa-wound Skin Appearance) Assessed,Dry/ Scaly -Color (Krupa-wound Skin Appearance) No Abnormality, Assessed -Temperature (Krupa-wound Skin No Abnormality Appearance) (Pt Warm) -Tenderness on Palpation (Krupa-wound No Skin Appearance) -Ulcer Cleansing Rinsed/ Irrigated with Saline -Foul Odor after Cleansing No -Anesthetic Used 4% Lidocaine Solution -Wound Comment(s) couldn't measure- had to soak with 4% lidocaine because graph was stuck on. Lower Limb Edema Present No WC - Nurse 2 - General Ulcer CM Notes Start: 10/19/22 11:37 Freq: Status: Active Protocol: Activity Type Activity Date Activity User E-sign Co-sign Detail Recorded Client Recorded Date Recorded By Document 10/19/22 12:39 PL [id number] 10/19/22 12:41 PL Document 10/26/22 15:14 PL [id number] 10/26/22 15:16 PL 10/19/22 10/26/22 12:39 15:14 Wound Center Nurse 2 #1 right medial LE -Time 11:34 14:20 -Correct Patient Yes Yes -Correct Side, Site, Position Yes Yes -Correct Procedure Yes Yes -Procedure Performed Yes Yes -Type of Procedure Debridement Debridement -Clinical Debridement Subcutaneous Subcutaneous -Tissue Removed Subcutaneous Subcutaneous -Post Debridement (cm) - Length 1.5 1.2 -Post Debridement (cm) - Width 5.1 5.0 -Post Debridement (cm) - Depth 0.1 0.1 -Total Square (Post) (cm) 7.65 6.00 -Area of Debridement (cm) - Length 1.5 1.2 -Area of Debridement (cm) - Width 5.1 5.0 -Total Square (Area) (cm) 7.65 6.00 -Tunneling No No -Undermining/Tunneling No No -Circular Undermining No No -Wound/Ulcer Outcome Not Healed Not Healed -Ulcer Cleansing Rinsed/ Rinsed/ Irrigated with Irrigated with Saline Saline -Foul Odor after Cleansing No No -Bioengineered Tissue Yes Yes -Type of Bioengineered Tissue Theraskin Theraskin -Expiration Date 09/18/25 02/27/24 -Product Lot Number [id number] -Percent Used 100 100 -Lot number of Saline Used [id number] -Bleeding Controlled with Pressure Pressure -Treatment Response Procedure Procedure Tolerated Well Tolerated Well -Debridement - Subq, 1st 20sq cm No No -Apply Skin Sub - 1st 25 sq cm - Legs 1 1 -Theraskin (per sq cm) 26 13 Pain Scale: 0-10 Numeric Is Patient Pain Free? Yes Yes - Nurse 3 - General Ulcer D/C NN Start: 10/19/22 11:37 Freq: Status: Active Protocol: Activity Type Activity Date Activity User E-sign Co-sign Detail Recorded Client Recorded Date Recorded By Document 10/19/22 11:56 MW [id number] 10/19/22 11:57 MW 10/19/22 11:56 Wound Care Nurse 3 #1 right medial LE -Ulcer Cleansing Not Cleansed -Foul Odor after Cleansing No -Negative Pressure Wound Therapy N/A -Primary Dressing Covered/Secured with Dry Gauze & Roll Gauze, Secured with Tape Treatment Response Procedure Tolerated Well Pain Scale: 0-10 Numeric Is Patient Pain Free? Yes Teaching: Wound Center Dressing Your Wound -Person Taught Patient,Family -Teaching Method Discussion, Demonstration -Response to teaching Verbalize understanding WC - Visit Discharge Discharge Condition Stable Ambulatory Status Ambulatory Transportation Private Auto Accompanied by Medication Reconcilliation completed & No provided to patient/care provider Clinical Summary of Care Provided Yes Assessment/Plan Assessment/Plan (1) Non-pressure chronic ulcer of right calf with fat layer exposed: CODE(S): L97.212 - Non-pressure chronic ulcer of right calf with fat layer exposed (2) Leg wound, right: CODE(S): S81.801A - Unspecified open wound, right lower leg, initial encounter QUALIFIERS: Encounter type: subsequent encounter Qualified Code(s): S81.801D - Unspecified open wound, right lower leg, subsequent encounter (3) Necrosis: CODE(S): I96 - Gangrene, not elsewhere classified (4) GERD (gastroesophageal reflux disease): CODE(S): K21.9 - Gastro-esophageal reflux disease without esophagitis (5) Arthritis: CODE(S): M19.90 - Unspecified osteoarthritis, unspecified site (6) Asthma: CODE(S): J45.909 - Unspecified asthma, uncomplicated (7) History of brain cancer in adulthood: CODE(S): Z85.841 - Personal history of malignant neoplasm of brain (8) History of malignant neoplasm of brain in adulthood: CODE(S): Z85.841 - Personal history of malignant neoplasm of brain (9) History of seizures: CODE(S): Z87.898 - Personal history of other specified conditions (10) Expressive aphasia: CODE(S): R47.01 - Aphasia (11) TMJ (temporomandibular joint disorder): CODE(S): M26.609 - Unspecified temporomandibular joint disorder, unspecified side (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 The necrotic and gangrenous material has been eliminated. The wound appears to be decreasing in size in recent weeks with the implementation of allograft applications. The 4th TheraSkin allograft was applied today. The allograft is to remain in place, undisturbed, until the patient returns in 1 week. The patient and her have been advised to contact Wound Center personnel should they notice any signs that may suggest infection or deterioration of the wound or graft. The patient's wound has diminished progressively, and it is apparent that the serial allograft applications have proved of benefit. Total time: 29 minutes
[2022-11-02 09:31] VITALS: BP 126/70; PULSE 74; RESP 16; TEMP 36.4; BMI 22.2
--- NOTE | 2022-11-02 13:35 | PCM.WC.HP ---
History of Present Illness Date of Service: 11/02/22 Chief Complaint: Traumatic wound of the right leg History of Wound: This is a 61-year-old female who presented with a traumatic wound on her right medial leg. The injury occurred on August 08, 2022. The patient had a mishap while using a treadmill. She fell, impacting the medial aspect of her right leg, just below the knee. She sustained a penetrating injury and has been treated by her primary care physician since that time. She had most recently been using Silvadene topically on a daily basis. She denied fevers, sweats, and chills. Antibiotics had not been prescribed. The wound failed to show improvement since it occurred, prompting referral to the [facility]. 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 Home Medications armodafinil 250 mg tablet 250 mg PO DAILY 08/17/22 [History Last Taken Unknown] Surgical History History of brain surgery History of cholecystectomy History of total abdominal hysterectomy Hx of LASIK Social History Smoking Status: Never smoker Vital Signs Vital Signs Vital Signs: 11/02/22 09:31 Temperature 97.5 F L Temperature Source Temporal Pulse Rate 74 Respiratory Rate 16 Blood Pressure 126/70 H Blood Pressure Mean 88 Blood Pressure Source Monitor Blood Pressure Position Sitting Blood Pressure Location Left Arm Weight Weight: 140 lb Body Mass Index (BMI) 22.2 Physical Exam Const alert, oriented x3, no apparent distress, average body habitus and well nourished Constitutional Narrative: The patient is alert and oriented. She appears to be cognitively intact. However, an expressive speech aphasia is identified. 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 General Appearance: cooperative, comfortable, well kempt and well developed Orientation / Consciousness: awake, oriented to person, oriented to place and oriented to time HEENT normocephalic and head/scalp atraumatic Head and Scalp: normal to inspection, normocephalic and atraumatic External Ear: external ears normal Eyes PERRL and EOMs intact bilaterally General Eye: normal appearance of both eyes Resp normal respiratory effort, normal air movement, no retractions and no use of accessory muscles Effort and Inspection: able to speak in complete sentences Extremity no calf tenderness General Extremity: Negative for clubbing or cyanosis Skin Wound Narrative: No significant swelling or edema are noted in the patient's lower extremities. A wound is noted on the medial aspect of the right lower extremity, just below the knee. Dimensions are documented elsewhere. The wound continues to decrease in size significantly. A TheraSkin allograft was placed topically 1 week ago. There is no sign of infection or cellulitis. A small amount of bioburden is noted to be present. Neuro oriented x3, CN's II-XII intact bilaterally and moves all extremities Neuro Narrative: An expressive speech aphasia is noted. Sensorium / Orientation: awake, alert, oriented to person, oriented to place and oriented to time Psych Appearance: grossly normal and appropriate Attitude: calm Activity / Motor Behavior: appropriate eye contact Speech: normal speech Mood & Affect: euthymic mood Thought Process: normal thought process Thought Content: normal thought content Attention / Concentration: attention grossly intact Debridement Note Debridement Note Wound debrided: Right medial lower extremity, below knee Laterality: Right Type of Debridement: Excisional debridement Anesthesia Used: 5% Lidocaine Gel Depth: Down to and including healthy tissue and in the subcutaneous layer Percentage of wound debrided: 100 Instrument Used: 5mm curette Tissue Removed: Bioburden Severity: Fat Layer Exposed Amount of bleeding with debridement: Mild Bleeding Controlled with: Compression and gauze Patient tolerated procedure: Patient tolerated procedure well Debridement Free Text: There has been significant improvement since the patient was evaluated 1 week ago, with notable decrease in the size of the patient's ulceration. Following a routine excisional debridement, which was well-tolerated by the patient, the 5th TheraSkin allograft was selected for application. A 2.5 cm? allograft was selected, then removed from its sterile packaging. It was positioned in the appropriate orientation, and placed topically over the open ulceration. The entire portion of the allograft was utilized. Once in place, Adaptic Touch was placed over top, and was anchored using Steri-Strips. The entire procedure was well-tolerated by the patient. Today's allograft application represents the 5th such application of a TheraSkin allograft. A dry sterile gauze dressing was then placed, with intention to be left intact until the patient returns in 1 week. Post-Debridement Measurements and Additional Note: Post-Debridement Measurements/Treatment - Nurse 1 - General Ulcer Assessment Start: 10/19/22 11:37 Freq: Status: Active Protocol: JODI.LOWEXT Activity Type Activity Date Activity User E-sign Co-sign Detail Recorded Client Recorded Date Recorded By Document 10/19/22 11:43 AK [id number] 10/19/22 11:48 AK Document 10/26/22 14:13 MW [id number] 10/26/22 14:17 MW Edit Result 10/26/22 14:13 MW (1) [id number] 10/26/22 14:19 MW Document 11/02/22 09:31 ML [id number] 11/02/22 09:32 ML (1) Pulse Rate (60-100) => 70 Pulse Location => Monitor Respiratory Rate (12-18) => 18 Respiratory rate source => Observation Oxygen Delivery Method => Room Air Blood Pressure (90/60-120/80) => 124/70 H Blood Pressure Mean => 88 Source => Monitor Position => Sitting Blood Pressure Location => Left Arm 10/19/22 10/26/22 11/02/22 11:43 14:13 09:31 - Today's Visit Information Type of service Follow-up Visit Follow-up Visit Follow-up Visit (Physician/SENIOR RISK ANALYST (Physician/SENIOR RISK ANALYST (Physician/SENIOR RISK ANALYST ) ) ) Arrival Mode Ambulatory Ambulatory Ambulatory Transfer Assistance None None Accompanied by mother in law Patient Identification Verified (Name & Yes Yes Yes ) Patient Requires Transmission-Based No No No Precautions Safety Precautions NA NA Height and Weight Body Mass Index (BMI) 22.2 22.2 22.2 BMI Classification Normal Normal Normal Vital Signs Temperature (97.8 F-99.1 F) 97.8 F 95.7 F L 97.5 F L Temperature Source Temporal Temporal Temporal Pulse Rate (60-100) 72 70 74 Pulse Location Monitor Monitor Monitor Respiratory Rate (12-18) 18 16 Respiratory rate source Observation Observation Oxygen Delivery Method Room Air Blood Pressure (90/60-120/80) 106/48 L 124/70 H 126/70 H Blood Pressure Mean 67 88 88 Source Monitor Monitor Monitor Position Sitting Sitting Blood Pressure Location Left Arm Left Arm History Since Last Visit- (Skip if this is Patient's initial visit) Have you changed medications since your No No No last visit? Any new allergies or adverse reactions No No No Had a fall/change in ADL's that may No No No increase risk of falls Signs or symptoms of abuse and/or No No No neglect since last visit Have you been in the hospital since your No No No last visit? Has dressing in place as prescribed Yes Yes Yes Has compression in place as prescribed N/A N/A N/A Has offloadiing in place as prescribed N/A N/A N/A Experienced any changes in pain level or No No No management Left Footwear Regular Shoe Regular Shoe Regular Shoe Right Footwear Regular Shoe Regular Shoe Regular Shoe Pain Scale: 0-10 Numeric Is Patient Pain Free? Yes Yes Yes WC - Nurse 1 - General Ulcer Measurement Start: 10/19/22 11:37 Freq: Status: Active Protocol: Activity Type Activity Date Activity User E-sign Co-sign Detail Recorded Client Recorded Date Recorded By Document 10/19/22 11:43 AK [id number] 10/19/22 11:48 AK Document 10/26/22 14:13 MW [id number] 10/26/22 14:17 MW Document 11/02/22 09:31 ML [id number] 11/02/22 09:32 ML 10/19/22 10/26/22 11/02/22 11:43 14:13 09:31 Wound Center Nurse 1 #1 right medial LE -Combined with other wound No No -Current Size (cm) - Length 0.1 1.5 -Current Size (cm) - Width 0.1 5.3 -Current Size (cm) - Depth 0.1 0.1 -Total Square Cm 0.01 7.95 -Photo Taken No -Epithelialization None Present -Tunneling No -Undermining/Tunneling No -Circular Undermining No -Exudate Amt Small Medium -Exudate Type Serosanguineous Serosanguineous -Wound Margin Flat & Intact Distinct, Outline Attached -Granulation Amt None Present (0 Medium (34-66%) %) -Granulation Quality N/A -Slough/Fibrin Yes Yes -Necrosis Amt Large (67-100%) Medium (34-66%) -Necrotic Tissue Type Adherent Slough Adherent Slough -Structure Exposed N/A -Texture (Krupa-wound Skin Appearance) Assessed, Assessed Scarring -Moisture (Krupa-wound Skin Appearance) Assessed,Dry/ Assessed Scaly -Color (Krupa-wound Skin Appearance) No Abnormality, Assessed Assessed -Temperature (Krupa-wound Skin No Abnormality No Abnormality Appearance) (Pt Warm) (Pt Warm) -Tenderness on Palpation (Krupa-wound No Yes Skin Appearance) -Ulcer Cleansing Rinsed/ Irrigated with Saline -Foul Odor after Cleansing No No -Anesthetic Used 4% Lidocaine 5% Lidocaine Solution Gel -Wound Comment(s) couldn't measure- had to soak with 4% lidocaine because graph was stuck on. Lower Limb Edema Present No WC - Nurse 2 - General Ulcer CM Notes Start: 10/19/22 11:37 Freq: Status: Active Protocol: Activity Type Activity Date Activity User E-sign Co-sign Detail Recorded Client Recorded Date Recorded By Document 10/19/22 12:39 PL [id number] 10/19/22 12:41 PL Document 10/26/22 15:14 PL [id number] 10/26/22 15:16 PL Document 11/02/22 11:39 PL [id number] 11/02/22 11:41 PL 10/19/22 10/26/22 11/02/22 12:39 15:14 11:39 Wound Center Nurse 2 #1 right medial LE -Time 11:34 14:20 09:42 -Correct Patient Yes Yes Yes -Correct Side, Site, Position Yes Yes Yes -Correct Procedure Yes Yes Yes -Procedure Performed Yes Yes Yes -Type of Procedure Debridement Debridement Debridement -Clinical Debridement Subcutaneous Subcutaneous Subcutaneous -Tissue Removed Subcutaneous Subcutaneous Subcutaneous -Post Debridement (cm) - Length 1.5 1.2 1.3 -Post Debridement (cm) - Width 5.1 5.0 2.5 -Post Debridement (cm) - Depth 0.1 0.1 0.1 -Total Square (Post) (cm) 7.65 6.00 3.25 -Area of Debridement (cm) - Length 1.5 1.2 1.3 -Area of Debridement (cm) - Width 5.1 5.0 2.5 -Total Square (Area) (cm) 7.65 6.00 3.25 -Tunneling No No No -Undermining/Tunneling No No No -Circular Undermining No No No -Wound/Ulcer Outcome Not Healed Not Healed Not Healed -Ulcer Cleansing Rinsed/ Rinsed/ Rinsed/ Irrigated with Irrigated with Irrigated with Saline Saline Saline -Foul Odor after Cleansing No No No -Bioengineered Tissue Yes Yes Yes -Type of Bioengineered Tissue Theraskin Theraskin Theraskin -Expiration Date 09/18/25 02/27/24 08/08/25 -Product Lot Number [id number] -Percent Used 100 100 100 -Lot number of Saline Used [id number] -Bleeding Controlled with Pressure Pressure Pressure -Treatment Response Procedure Procedure Procedure Tolerated Well Tolerated Well Tolerated Well -Debridement - Subq, 1st 20sq cm No No No -Apply Skin Sub - 1st 25 sq cm - Legs 1 1 1 -Theraskin (per sq cm) 26 13 6 Pain Scale: 0-10 Numeric Is Patient Pain Free? Yes Yes Yes - Nurse 3 - General Ulcer D/C NN Start: 10/19/22 11:37 Freq: Status: Active Protocol: Activity Type Activity Date Activity User E-sign Co-sign Detail Recorded Client Recorded Date Recorded By Document 10/19/22 11:56 MW [id number] 10/19/22 11:57 MW Document 11/02/22 10:12 MW [id number] 11/02/22 10:12 MW 10/19/22 11/02/22 11:56 10:12 Wound Care Nurse 3 #1 right medial LE -Ulcer Cleansing Not Cleansed Not Cleansed -Foul Odor after Cleansing No -Negative Pressure Wound Therapy N/A -Primary Dressing Covered/Secured with Dry Gauze & Dry Gauze & Roll Gauze, Roll Gauze, Secured with Secured with Tape Tape Treatment Response Procedure Tolerated Well Pain Scale: 0-10 Numeric Is Patient Pain Free? Yes Yes Teaching: Wound Center Dressing Your Wound -Person Taught Patient,Family Patient -Teaching Method Discussion, Discussion, Demonstration Demonstration -Response to teaching Verbalize Verbalize understanding understanding WC - Visit Discharge Discharge Condition Stable Stable Ambulatory Status Ambulatory Ambulatory Transportation Private Auto Private Auto Accompanied by Medication Reconcilliation completed & No No provided to patient/care provider Clinical Summary of Care Provided Yes Yes Assessment/Plan Assessment/Plan (1) Non-pressure chronic ulcer of right calf with fat layer exposed: CODE(S): L97.212 - Non-pressure chronic ulcer of right calf with fat layer exposed (2) Leg wound, right: CODE(S): S81.801A - Unspecified open wound, right lower leg, initial encounter QUALIFIERS: Encounter type: subsequent encounter Qualified Code(s): S81.801D - Unspecified open wound, right lower leg, subsequent encounter (3) Necrosis: CODE(S): I96 - Gangrene, not elsewhere classified (4) GERD (gastroesophageal reflux disease): CODE(S): K21.9 - Gastro-esophageal reflux disease without esophagitis (5) Arthritis: CODE(S): M19.90 - Unspecified osteoarthritis, unspecified site (6) Asthma: CODE(S): J45.909 - Unspecified asthma, uncomplicated (7) History of brain cancer in adulthood: CODE(S): Z85.841 - Personal history of malignant neoplasm of brain (8) History of malignant neoplasm of brain in adulthood: CODE(S): Z85.841 - Personal history of malignant neoplasm of brain (9) History of seizures: CODE(S): Z87.898 - Personal history of other specified conditions (10) Expressive aphasia: CODE(S): R47.01 - Aphasia (11) TMJ (temporomandibular joint disorder): CODE(S): M26.609 - Unspecified temporomandibular joint disorder, unspecified side (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 The necrotic and gangrenous material which was present at the time of the patient's initial presentation have been eliminated. The wound appears to be decreasing in size in recent weeks with the implementation of allograft applications. The 5th TheraSkin allograft was applied today. The allograft is to remain in place, undisturbed, until the patient returns in 1 week. The patient and her have been advised to contact Wound Center personnel should they notice any signs that may suggest infection or deterioration of the wound or graft. The patient's wound has diminished progressively, and it is apparent that the serial allograft applications have proved to be of benefit. Total time: 28 minutes
[2022-11-09 09:24] VITALS: BP 85/39; PULSE 74; RESP 16; BMI 22.2
--- NOTE | 2022-11-09 10:43 | PCM.WC.HP ---
History of Present Illness Date of Service: 11/09/22 Chief Complaint: Traumatic wound of the right leg History of Wound: This is a 61-year-old female who presented with a traumatic wound on her right medial leg. The injury occurred on August 08, 2022. The patient had a mishap while using a treadmill. She fell, impacting the medial aspect of her right leg, just below the knee. She sustained a penetrating injury and has been treated by her primary care physician since that time. She had most recently been using Silvadene topically on a daily basis. She denied fevers, sweats, and chills. Antibiotics had not been prescribed. The wound failed to show improvement since it occurred, prompting referral to the [facility]. 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 Home Medications armodafinil 250 mg tablet 250 mg PO DAILY 08/17/22 [History Last Taken Unknown] Surgical History History of brain surgery History of cholecystectomy History of total abdominal hysterectomy Hx of LASIK Social History Smoking Status: Never smoker Vital Signs Vital Signs Vital Signs: 11/09/22 09:24 Pulse Rate 74 Respiratory Rate 16 Blood Pressure 85/39 L Blood Pressure Mean 54 Blood Pressure Source Monitor Blood Pressure Position Sitting Blood Pressure Location Left Arm Oxygen Delivery Method Room Air Weight Weight: 140 lb Body Mass Index (BMI) 22.2 Physical Exam Const alert, oriented x3, no apparent distress, average body habitus and well nourished Constitutional Narrative: The patient is alert and oriented. She appears to be cognitively intact. However, an expressive speech aphasia is identified. 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 General Appearance: cooperative, comfortable, well kempt and well developed Orientation / Consciousness: awake, oriented to person, oriented to place and oriented to time HEENT normocephalic and head/scalp atraumatic Head and Scalp: normal to inspection, normocephalic and atraumatic External Ear: external ears normal Eyes PERRL and EOMs intact bilaterally General Eye: normal appearance of both eyes Resp normal respiratory effort, normal air movement, no retractions and no use of accessory muscles Effort and Inspection: able to speak in complete sentences Extremity no calf tenderness General Extremity: Negative for clubbing or cyanosis Skin Wound Narrative: No significant swelling or edema are noted in the patient's lower extremities. A wound is noted on the medial aspect of the right lower extremity, just below the knee. Dimensions are documented elsewhere. The wound continues to decrease in size significantly. A TheraSkin allograft was placed topically 1 week ago. There is no sign of infection or cellulitis. A small amount of bioburden is noted to be present. Neuro oriented x3, CN's II-XII intact bilaterally and moves all extremities Neuro Narrative: An expressive speech aphasia is noted. Sensorium / Orientation: awake, alert, oriented to person, oriented to place and oriented to time Psych Appearance: grossly normal and appropriate Attitude: calm Activity / Motor Behavior: appropriate eye contact Speech: normal speech Mood & Affect: euthymic mood Thought Process: normal thought process Thought Content: normal thought content Attention / Concentration: attention grossly intact Debridement Note Debridement Note Wound debrided: Right medial lower extremity, below knee Laterality: Right Type of Debridement: Excisional debridement Anesthesia Used: 5% Lidocaine Gel Depth: Down to and including healthy tissue and in the subcutaneous layer Percentage of wound debrided: 100 Instrument Used: 5mm curette Tissue Removed: Bioburden Severity: Fat Layer Exposed Amount of bleeding with debridement: Mild Bleeding Controlled with: Compression and gauze Patient tolerated procedure: Patient tolerated procedure well Debridement Free Text: There has been significant improvement since the patient was evaluated 1 week ago, with notable decrease in the size of the patient's ulceration. Following a routine excisional debridement, which was well-tolerated by the patient, the 6th TheraSkin allograft was selected for application. A 3 cm? allograft was selected, then removed from its sterile packaging. It was positioned in the appropriate orientation, and placed topically over the open ulceration. The entire portion of the allograft was utilized. Once in place, Adaptic Touch was placed over top, and was anchored using Steri-Strips. The entire procedure was well-tolerated by the patient. Today's allograft application represents the 6th such application of a TheraSkin allograft. A dry sterile gauze dressing was then placed, with intention to be left intact until the patient returns in 1 week. Post-Debridement Measurements and Additional Note: Post-Debridement Measurements/Treatment - Nurse 1 - General Ulcer Assessment Start: 10/19/22 11:37 Freq: Status: Active Protocol: JODI.[email or web address] Activity Type Activity Date Activity User E-sign Co-sign Detail Recorded Client Recorded Date Recorded By Document 10/19/22 11:43 AK [id number] 10/19/22 11:48 AK Document 10/26/22 14:13 MW [id number] 10/26/22 14:17 MW Edit Result 10/26/22 14:13 MW (1) [id number] 10/26/22 14:19 MW Document 11/02/22 09:31 ML [id number] 11/02/22 09:32 ML Document 11/09/22 09:24 BMF [id number] 11/09/22 09:30 BMF (1) Pulse Rate (60-100) => 70 Pulse Location => Monitor Respiratory Rate (12-18) => 18 Respiratory rate source => Observation Oxygen Delivery Method => Room Air Blood Pressure (90/60-120/80) => 124/70 H Blood Pressure Mean => 88 Source => Monitor Position => Sitting Blood Pressure Location => Left Arm 10/19/22 10/26/22 11/02/22 11:43 14:13 09:31 - Today's Visit Information Type of service Follow-up Visit Follow-up Visit Follow-up Visit (Physician/CAFETERIA ATTENDANT (Physician/CAFETERIA ATTENDANT (Physician/CAFETERIA ATTENDANT ) ) ) Arrival Mode Ambulatory Ambulatory Ambulatory Transfer Assistance None None Accompanied by mother in law Patient Identification Verified (Name & Yes Yes Yes ) Patient Requires Transmission-Based No No No Precautions Safety Precautions NA NA Height and Weight Body Mass Index (BMI) 22.2 22.2 22.2 BMI Classification Normal Normal Normal Vital Signs Temperature (97.8 F-99.1 F) 97.8 F 95.7 F L 97.5 F L Temperature Source Temporal Temporal Temporal Pulse Rate (60-100) 72 70 74 Pulse Location Monitor Monitor Monitor Respiratory Rate (12-18) 18 16 Respiratory rate source Observation Observation Oxygen Delivery Method Room Air Blood Pressure (90/60-120/80) 106/48 L 124/70 H 126/70 H Blood Pressure Mean 67 88 88 Source Monitor Monitor Monitor Position Sitting Sitting Blood Pressure Location Left Arm Left Arm Comment History Since Last Visit- (Skip if this is Patient's initial visit) Have you changed medications since your No No No last visit? Any new allergies or adverse reactions No No No Had a fall/change in ADL's that may No No No increase risk of falls Signs or symptoms of abuse and/or No No No neglect since last visit Have you been in the hospital since your No No No last visit? Has dressing in place as prescribed Yes Yes Yes Has compression in place as prescribed N/A N/A N/A Has offloadiing in place as prescribed N/A N/A N/A Experienced any changes in pain level or No No No management Left Footwear Regular Shoe Regular Shoe Regular Shoe Right Footwear Regular Shoe Regular Shoe Regular Shoe Pain Scale: 0-10 Numeric Is Patient Pain Free? Yes Yes Yes 11/09/22 09:24 WC - Today's Visit Information Type of service Follow-up Visit (Physician/CAFETERIA ATTENDANT ) Arrival Mode Ambulatory Transfer Assistance None Accompanied by Patient Identification Verified (Name & Yes ) Patient Requires Transmission-Based No Precautions Safety Precautions Height and Weight Body Mass Index (BMI) 22.2 BMI Classification Normal Vital Signs Temperature (97.8 F-99.1 F) Temperature Source Pulse Rate (60-100) 74 Pulse Location Monitor Respiratory Rate (12-18) 16 Respiratory rate source Observation Oxygen Delivery Method Room Air Blood Pressure (90/60-120/80) 85/39 L Blood Pressure Mean 54 Source Monitor Position Sitting Blood Pressure Location Left Arm Comment per pt and family this is her normal bp History Since Last Visit- (Skip if this is Patient's initial visit) Have you changed medications since your No last visit? Any new allergies or adverse reactions No Had a fall/change in ADL's that may No increase risk of falls Signs or symptoms of abuse and/or No neglect since last visit Have you been in the hospital since your No last visit? Has dressing in place as prescribed Yes Has compression in place as prescribed No Has offloadiing in place as prescribed N/A Experienced any changes in pain level or No management Left Footwear Regular Shoe Right Footwear Regular Shoe Pain Scale: 0-10 Numeric Is Patient Pain Free? Yes WC - Nurse 1 - General Ulcer Measurement Start: 10/19/22 11:37 Freq: Status: Active Protocol: Activity Type Activity Date Activity User E-sign Co-sign Detail Recorded Client Recorded Date Recorded By Document 10/19/22 11:43 AK [id number] 10/19/22 11:48 AK Document 10/26/22 14:13 MW [id number] 10/26/22 14:17 MW Document 11/02/22 09:31 ML [id number] 11/02/22 09:32 ML Document 11/09/22 09:24 BMF [id number] 11/09/22 09:30 BMF 10/19/22 10/26/22 11/02/22 11:43 14:13 09:31 Wound Center Nurse 1 #1 right medial LE -Combined with other wound No No -Current Size (cm) - Length 0.1 1.5 -Current Size (cm) - Width 0.1 5.3 -Current Size (cm) - Depth 0.1 0.1 -Total Square Cm 0.01 7.95 -Date of Last Picture (Recall this field) -Photo Taken No -Epithelialization None Present -Tunneling No -Undermining/Tunneling No -Circular Undermining No -Exudate Amt Small Medium -Exudate Type Serosanguineous Serosanguineous -Wound Margin Flat & Intact Distinct, Outline Attached -Granulation Amt None Present (0 Medium (34-66%) %) -Granulation Quality N/A -Slough/Fibrin Yes Yes -Necrosis Amt Large (67-100%) Medium (34-66%) -Necrotic Tissue Type Adherent Slough Adherent Slough -Structure Exposed N/A -Texture (Krupa-wound Skin Appearance) Assessed, Assessed Scarring -Moisture (Krupa-wound Skin Appearance) Assessed,Dry/ Assessed Scaly -Color (Krupa-wound Skin Appearance) No Abnormality, Assessed Assessed -Temperature (Krupa-wound Skin No Abnormality No Abnormality Appearance) (Pt Warm) (Pt Warm) -Tenderness on Palpation (Krupa-wound No Yes Skin Appearance) -Ulcer Cleansing Rinsed/ Irrigated with Saline -Foul Odor after Cleansing No No -Anesthetic Used 4% Lidocaine 5% Lidocaine Solution Gel -Wound Comment(s) couldn't measure- had to soak with 4% lidocaine because graph was stuck on. Lower Limb Edema Present No 11/09/22 09:24 Wound Center Nurse 1 #1 right medial LE -Combined with other wound No -Current Size (cm) - Length 1.5 -Current Size (cm) - Width 5 -Current Size (cm) - Depth 0.1 -Total Square Cm 7.5 -Date of Last Picture (Recall this 11/09/22 field) -Photo Taken Yes -Epithelialization Small 1-33% -Tunneling No -Undermining/Tunneling No -Circular Undermining No -Exudate Amt Medium -Exudate Type Serosanguineous -Wound Margin Distinct, Outline Attached -Granulation Amt Small (1-33%) -Granulation Quality [place] -Slough/Fibrin Yes -Necrosis Amt Medium (34-66%) -Necrotic Tissue Type Adherent Slough -Structure Exposed -Texture (Krupa-wound Skin Appearance) Assessed, Scarring -Moisture (Krupa-wound Skin Appearance) Assessed,Dry/ Scaly -Color (Krupa-wound Skin Appearance) Assessed, Ecchymosis -Temperature (Krupa-wound Skin No Abnormality Appearance) (Pt Warm) -Tenderness on Palpation (Krupa-wound No Skin Appearance) -Ulcer Cleansing Soap and Water -Foul Odor after Cleansing No -Anesthetic Used 5% Lidocaine Gel -Wound Comment(s) Lower Limb Edema Present WC - Nurse 2 - General Ulcer CM Notes Start: 10/19/22 11:37 Freq: Status: Active Protocol: Activity Type Activity Date Activity User E-sign Co-sign Detail Recorded Client Recorded Date Recorded By Document 10/19/22 12:39 PL [id number] 10/19/22 12:41 PL Document 10/26/22 15:14 PL [id number] 10/26/22 15:16 PL Document 11/02/22 11:39 PL [id number] 11/02/22 11:41 PL 10/19/22 10/26/22 11/02/22 12:39 15:14 11:39 Wound Center Nurse 2 #1 right medial LE -Time 11:34 14:20 09:42 -Correct Patient Yes Yes Yes -Correct Side, Site, Position Yes Yes Yes -Correct Procedure Yes Yes Yes -Procedure Performed Yes Yes Yes -Type of Procedure Debridement Debridement Debridement -Clinical Debridement Subcutaneous Subcutaneous Subcutaneous -Tissue Removed Subcutaneous Subcutaneous Subcutaneous -Post Debridement (cm) - Length 1.5 1.2 1.3 -Post Debridement (cm) - Width 5.1 5.0 2.5 -Post Debridement (cm) - Depth 0.1 0.1 0.1 -Total Square (Post) (cm) 7.65 6.00 3.25 -Area of Debridement (cm) - Length 1.5 1.2 1.3 -Area of Debridement (cm) - Width 5.1 5.0 2.5 -Total Square (Area) (cm) 7.65 6.00 3.25 -Tunneling No No No -Undermining/Tunneling No No No -Circular Undermining No No No -Wound/Ulcer Outcome Not Healed Not Healed Not Healed -Ulcer Cleansing Rinsed/ Rinsed/ Rinsed/ Irrigated with Irrigated with Irrigated with Saline Saline Saline -Foul Odor after Cleansing No No No -Bioengineered Tissue Yes Yes Yes -Type of Bioengineered Tissue Theraskin Theraskin Theraskin -Expiration Date 09/18/25 02/27/24 08/08/25 -Product Lot Number [id number] -Percent Used 100 100 100 -Lot number of Saline Used [id number] -Bleeding Controlled with Pressure Pressure Pressure -Treatment Response Procedure Procedure Procedure Tolerated Well Tolerated Well Tolerated Well -Debridement - Subq, 1st 20sq cm No No No -Apply Skin Sub - 1st 25 sq cm - Legs 1 1 1 -[place]askin (per sq cm) 26 13 6 Pain Scale: 0-10 Numeric Is Patient Pain Free? Yes Yes Yes - Nurse 3 - General Ulcer D/C NN Start: 10/19/22 11:37 Freq: Status: Active Protocol: Activity Type Activity Date Activity User E-sign Co-sign Detail Recorded Client Recorded Date Recorded By Document 10/19/22 11:56 MW [id number] 10/19/22 11:57 MW Document 11/02/22 10:12 MW [id number] 11/02/22 10:12 MW 10/19/22 11/02/22 11:56 10:12 Wound Care Center Nurse 3 #1 right medial LE -Ulcer Cleansing Not Cleansed Not Cleansed -Foul Odor after Cleansing No -Negative Pressure Wound Therapy N/A -Primary Dressing Covered/Secured with Dry Gauze & Dry Gauze & Roll Gauze, Roll Gauze, Secured with Secured with Tape Tape Treatment Response Procedure Tolerated Well Pain Scale: 0-10 Numeric Is Patient Pain Free? Yes Yes Teaching: Wound Center Dressing Your Wound -Person Taught Patient,Family Patient -Teaching Method Discussion, Discussion, Demonstration Demonstration -Response to teaching Verbalize Verbalize understanding understanding WC - Visit Discharge Discharge Condition Stable Stable Ambulatory Status Ambulatory Ambulatory Transportation Private Auto Private Auto Accompanied by Medication Reconcilliation completed & No No provided to patient/care provider Clinical Summary of Care Provided Yes Yes Assessment/Plan Assessment/Plan (1) Non-pressure chronic ulcer of right calf with fat layer exposed: CODE(S): L97.212 - Non-pressure chronic ulcer of right calf with fat layer exposed (2) Leg wound, right: CODE(S): S81.801A - Unspecified open wound, right lower leg, initial encounter QUALIFIERS: Encounter type: subsequent encounter Qualified Code(s): S81.801D - Unspecified open wound, right lower leg, subsequent encounter (3) Necrosis: CODE(S): I96 - Gangrene, not elsewhere classified (4) GERD (gastroesophageal reflux disease): CODE(S): K21.9 - Gastro-esophageal reflux disease without esophagitis (5) Arthritis: CODE(S): M19.90 - Unspecified osteoarthritis, unspecified site (6) Asthma: CODE(S): J45.909 - Unspecified asthma, uncomplicated (7) History of brain cancer in adulthood: CODE(S): Z85.841 - Personal history of malignant neoplasm of brain (8) History of malignant neoplasm of brain in adulthood: CODE(S): Z85.841 - Personal history of malignant neoplasm of brain (9) History of seizures: CODE(S): Z87.898 - Personal history of other specified conditions (10) Expressive aphasia: CODE(S): R47.01 - Aphasia (11) TMJ (temporomandibular joint disorder): CODE(S): M26.609 - Unspecified temporomandibular joint disorder, unspecified side (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 The necrotic and gangrenous material which was present at the time of the patient's initial presentation have been eliminated. The wound appears to be decreasing in size in recent weeks with the implementation of allograft applications. The 6th TheraSkin allograft was applied today. The allograft is to remain in place, undisturbed, until the patient returns in 1 week. The patient and her have been advised to contact Wound Center personnel should they notice any signs that may suggest infection or deterioration of the wound or graft. The patient's wound has diminished in size progressively, and it is apparent that the serial allograft applications have proved to be of benefit. Correction: The size of the allograft used 1 week ago was incorrectly documented. The allograft size used 1 week ago was 6 cm?. Today's allograft, as documented herein, was 3 cm?. The patient's wound has decreased in size with within the last week. Total time: 29 minutes
== END 2022-11-16 23:59 | disposition home or self-care (01) ==
LOC: WC 09:30
PROVIDERS: PCP Family Medicine; Visit Provider Surgery
DX: L97.212 Non-pressure chronic ulcer of right calf with fat layer exposed (principal); I96 Gangrene, not elsewhere classified; G83.84 Todd's paralysis (postepileptic); S81.831S Puncture wound without foreign body, right lower leg, sequela; W17.89XS Other fall from one level to another, sequela; K21.9 Gastro-esophageal reflux disease without esophagitis; R47.01 Aphasia; M26.609 Unspecified temporomandibular joint disorder, unspecified side; J45.909 Unspecified asthma, uncomplicated; M19.90 Unspecified osteoarthritis, unspecified site; Z85.841 Personal history of malignant neoplasm of brain
CPT/HCPCS: 15271; Q4121

== ENCOUNTER 2022-11-30 09:45 | Outpatient (RCR) | payer MEDICARE, SELFPAY ==
[2022-11-17 00:21] VITALS: BP 85/39; PULSE 74; RESP 16; TEMP 36.4; BMI 22.2
[2022-11-23 11:20] VITALS: BP 135/73; PULSE 73; RESP 18; TEMP 36.2; BMI 22.2
--- NOTE | 2022-11-23 12:42 | PCM.WC.HP ---
History of Present Illness Date of Service: 11/23/22 Chief Complaint: Traumatic wound of the right leg History of Wound: This is a 61-year-old female who presented with a traumatic wound on her right medial leg. The injury occurred on August 08, 2022. The patient had a mishap while using a treadmill. She fell, impacting the medial aspect of her right leg, just below the knee. She sustained a penetrating injury and has been treated by her primary care physician since that time. She had most recently been using Silvadene topically on a daily basis. She denied fevers, sweats, and chills. Antibiotics had not been prescribed. The wound failed to show improvement since it occurred, prompting referral to the [facility]. 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 Home Medications armodafinil 250 mg tablet 250 mg PO DAILY 08/17/22 [History Last Taken Unknown] Surgical History History of brain surgery History of cholecystectomy History of total abdominal hysterectomy Hx of LASIK Social History Smoking Status: Never smoker Vital Signs Vital Signs Vital Signs: 11/23/22 11:20 Temperature 97.2 F L Temperature Source Temporal Pulse Rate 73 Respiratory Rate 18 Blood Pressure 135/73 H Blood Pressure Mean 93 Weight Weight: 140 lb Body Mass Index (BMI) 22.2 Physical Exam Const alert, oriented x3, no apparent distress, average body habitus and well nourished Constitutional Narrative: The patient is alert and oriented. She appears to be cognitively intact. However, an expressive speech aphasia is identified. 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 General Appearance: cooperative, comfortable, well kempt and well developed Orientation / Consciousness: awake, oriented to person, oriented to place and oriented to time HEENT normocephalic and head/scalp atraumatic Head and Scalp: normal to inspection, normocephalic and atraumatic External Ear: external ears normal Eyes PERRL and EOMs intact bilaterally General Eye: normal appearance of both eyes Resp normal respiratory effort, normal air movement, no retractions and no use of accessory muscles Effort and Inspection: able to speak in complete sentences Extremity no calf tenderness General Extremity: Negative for clubbing or cyanosis Skin Wound Narrative: No significant swelling or edema are noted in the patient's lower extremities. A wound is noted on the medial aspect of the right lower extremity, just below the knee. Dimensions are documented elsewhere. The wound continues to decrease in size significantly, and is now nearly totally healed. A TheraSkin allograft was placed topically 2 weeks ago. There is no sign of infection or cellulitis. A small amount of bioburden is noted to be present, with residual from the TheraSkin allograft placed 2 weeks ago. Neuro oriented x3, CN's II-XII intact bilaterally and moves all extremities Neuro Narrative: An expressive speech aphasia is noted. Sensorium / Orientation: awake, alert, oriented to person, oriented to place and oriented to time Psych Appearance: grossly normal and appropriate Attitude: calm Activity / Motor Behavior: appropriate eye contact Speech: normal speech Mood & Affect: euthymic mood Thought Process: normal thought process Thought Content: normal thought content Attention / Concentration: attention grossly intact Debridement Note Debridement Note Wound debrided: Right medial lower extremity, below knee Laterality: Right Type of Debridement: Excisional debridement Anesthesia Used: 5% Lidocaine Gel Depth: Down to and including healthy tissue and in the subcutaneous layer Percentage of wound debrided: 100 Instrument Used: 5mm curette Tissue Removed: Bioburden Severity: Fat Layer Exposed Amount of bleeding with debridement: Mild Bleeding Controlled with: Compression and gauze Patient tolerated procedure: Patient tolerated procedure well Debridement Free Text: There has been significant improvement since the patient was last evaluated. During the debridement today, a large portion of the residual TheraSkin allograft was removed. It was noted that her traumatic wound is now nearly totally healed, with only a very small residual open wound remaining. The dimensions of the residual wound are documented elsewhere. There is no sign of infection or cellulitis. Post-Debridement Measurements and Additional Note: Post-Debridement Measurements/Treatment JODI - Nurse 1 - General Ulcer Assessment Start: 11/23/22 11:19 Freq: Status: Active Protocol: WC.LOWEXT Activity Type Activity Date Activity User E-sign Co-sign Detail Recorded Client Recorded Date Recorded By Document 11/23/22 11:20 DL [id number] 11/23/22 11:22 DL Edit Result 11/23/22 11:20 DL (1) [id number] 11/23/22 11:25 DL (1) Pulse Rate (60-100) => 73 Pulse Location => Monitor Blood Pressure (90/60-120/80) => 135/73 H Blood Pressure Mean => 93 11/23/22 11:20 WC - Today's Visit Information Type of service Follow-up Visit (Physician/GAS WELDER APPRENTICE ) Arrival Mode Ambulatory Transfer Assistance None Patient Identification Verified (Name & Yes ) Patient Requires Transmission-Based No Precautions Height and Weight Body Mass Index (BMI) 22.2 BMI Classification Normal Vital Signs Temperature (97.8 F-99.1 F) 97.2 F L Temperature Source Temporal Pulse Rate (60-100) 73 Pulse Location Monitor Respiratory Rate (12-18) 18 Respiratory rate source Observation Blood Pressure (90/60-120/80) 135/73 H Blood Pressure Mean 93 History Since Last Visit- (Skip if this is Patient's initial visit) Have you changed medications since your No last visit? Any new allergies or adverse reactions No Had a fall/change in ADL's that may No increase risk of falls Signs or symptoms of abuse and/or No neglect since last visit Have you been in the hospital since your No last visit? Has dressing in place as prescribed Yes Has compression in place as prescribed N/A Has offloadiing in place as prescribed N/A Experienced any changes in pain level or No management Pain Scale: 0-10 Numeric Is Patient Pain Free? Yes - Nurse 1 - General Ulcer Measurement Start: 11/23/22 11:19 Freq: Status: Active Protocol: Activity Type Activity Date Activity User E-sign Co-sign Detail Recorded Client Recorded Date Recorded By Document 11/23/22 11:20 DL [id number] 11/23/22 11:22 DL 11/23/22 11:20 Wound Center Nurse 1 #1 right medial LE -Current Size (cm) - Length 1.4 -Current Size (cm) - Width 5.5 -Current Size (cm) - Depth 0.1 -Total Square Cm 7.70 -Photo Taken Yes -Exudate Amt Small -Exudate Type Serosanguineous -Wound Margin Distinct, Outline Attached -Granulation Amt None Present (0 %) -Necrosis Amt Large (67-100%) -Necrotic Tissue Type Eschar -Structure Exposed N/A -Texture (Krupa-wound Skin Appearance) Scarring -Moisture (Krupa-wound Skin Appearance) No Abnormality -Color (Krupa-wound Skin Appearance) No Abnormality -Temperature (Krupa-wound Skin No Abnormality Appearance) (Pt Warm) -Tenderness on Palpation (Krupa-wound No Skin Appearance) -Ulcer Cleansing Soap and Water -Foul Odor after Cleansing No -Anesthetic Used 5% Lidocaine Gel WC - Nurse 2 - General Ulcer CM Notes Start: 11/23/22 11:19 Freq: Status: Active Protocol: Activity Type Activity Date Activity User E-sign Co-sign Detail Recorded Client Recorded Date Recorded By Document 11/23/22 11:31 MW [id number] 11/23/22 11:35 MW 11/23/22 11:31 Wound Center Nurse 2 -Time 11:33 -Correct Patient Yes -Correct Side, Site, Position Yes -Correct Procedure Yes -Procedure Performed Yes -Type of Procedure Debridement -Clinical Debridement Subcutaneous -Tissue Removed Subcutaneous -Post Debridement (cm) - Length 0.3 -Post Debridement (cm) - Width 0.3 -Post Debridement (cm) - Depth 0.1 -Total Square (Post) (cm) 0.09 -Area of Debridement (cm) - Length 0.3 -Area of Debridement (cm) - Width 0.3 -Total Square (Area) (cm) 0.09 -Tunneling No -Undermining/Tunneling No -Circular Undermining No -Wound/Ulcer Outcome Not Healed -Ulcer Cleansing Rinsed/ Irrigated with Saline -Foul Odor after Cleansing No -Bioengineered Tissue No -Bleeding Controlled with Pressure -Treatment Response Procedure Tolerated Well -Offloading No -Debridement - Subq, 1st 20sq cm Yes Pain Scale: 0-10 Numeric Is Patient Pain Free? Yes Assessment/Plan Assessment/Plan (1) Non-pressure chronic ulcer of right calf with fat layer exposed: CODE(S): L97.212 - Non-pressure chronic ulcer of right calf with fat layer exposed (2) Leg wound, right: CODE(S): S81.801A - Unspecified open wound, right lower leg, initial encounter QUALIFIERS: Encounter type: subsequent encounter Qualified Code(s): S81.801D - Unspecified open wound, right lower leg, subsequent encounter (3) Necrosis: CODE(S): I96 - Gangrene, not elsewhere classified (4) GERD (gastroesophageal reflux disease): CODE(S): K21.9 - Gastro-esophageal reflux disease without esophagitis (5) Arthritis: CODE(S): M19.90 - Unspecified osteoarthritis, unspecified site (6) Asthma: CODE(S): J45.909 - Unspecified asthma, uncomplicated (7) History of brain cancer in adulthood: CODE(S): Z85.841 - Personal history of malignant neoplasm of brain (8) History of malignant neoplasm of brain in adulthood: CODE(S): Z85.841 - Personal history of malignant neoplasm of brain (9) History of seizures: CODE(S): Z87.898 - Personal history of other specified conditions (10) Expressive aphasia: CODE(S): R47.01 - Aphasia (11) TMJ (temporomandibular joint disorder): CODE(S): M26.609 - Unspecified temporomandibular joint disorder, unspecified side (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 The necrotic and gangrenous material which was present at the time of the patient's initial presentation have been eliminated. The wound appears to be decreasing in size in recent weeks with the implementation of allograft applications. The 6th TheraSkin allograft was applied 2 weeks ago. The residual portion of the remaining allograft was removed today, revealing only a very small residual wound. We attempted with the use of collagen hydrogel applied topically on a daily basis. The patient and her have been instructed in the appropriate means of application. The patient's wound has diminished in size progressively, and it is apparent that the serial allograft applications have proved to be of benefit. The patient is to return in 1 week for reassessment. Total time: 25 minutes
--- NOTE | 2022-11-30 12:45 | PCM.WC.HP ---
History of Present Illness Date of Service: 11/30/22 Chief Complaint: Traumatic wound of the right leg History of Wound: This is a 61-year-old female who presented with a traumatic wound on her right medial leg. The injury occurred on August 08, 2022. The patient had a mishap while using a treadmill. She fell, impacting the medial aspect of her right leg, just below the knee. She sustained a penetrating injury and has been treated by her primary care physician since that time. She had most recently been using Silvadene topically on a daily basis. She denied fevers, sweats, and chills. Antibiotics had not been prescribed. The wound failed to show improvement since it occurred, prompting referral to the [facility]. 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 She appears to be cognitively intact. However, an expressive speech aphasia is identified. 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 General Appearance: cooperative, comfortable, well kempt and well developed Orientation / Consciousness: awake, oriented to person, oriented to place and oriented to time HEENT normocephalic and head/scalp atraumatic Head and Scalp: normal to inspection, normocephalic and atraumatic External Ear: external ears normal Eyes PERRL and EOMs intact bilaterally General Eye: normal appearance of both eyes Resp normal respiratory effort, normal air movement, no retractions and no use of accessory muscles Effort and Inspection: able to speak in complete sentences Extremity no calf tenderness General Extremity: Negative for clubbing or cyanosis Skin Wound Narrative: No significant swelling or edema are noted in the patient's lower extremities. The right lower extremity traumatic wound is now completely healed and epithelialized. Neuro oriented x3, CN's II-XII intact bilaterally and moves all extremities Neuro Narrative: An expressive speech aphasia is noted. Sensorium / Orientation: awake, alert, oriented to person, oriented to place and oriented to time Psych Appearance: grossly normal and appropriate Attitude: calm Activity / Motor Behavior: appropriate eye contact Speech: normal speech Mood & Affect: euthymic mood Thought Process: normal thought process Thought Content: normal thought content Attention / Concentration: attention grossly intact Debridement Note Debridement Note No debridement was completed: No debridement was completed today (The right lower extremity traumatic wound is completely healed.) Post-Debridement Measurements and Additional Note: Post-Debridement Measurements/Treatment - Nurse 1 - General Ulcer Assessment Start: 11/23/22 11:19 Freq: Status: Active Protocol: JODI.WAGNER Activity Type Activity Date Activity User E-sign Co-sign Detail Recorded Client Recorded Date Recorded By Document 11/23/22 11:20 DL [id number] 11/23/22 11:22 DL Edit Result 11/23/22 11:20 DL (1) [id number] 11/23/22 11:25 DL (1) Pulse Rate (60-100) => 73 Pulse Location => Monitor Blood Pressure (90/60-120/80) => 135/73 H Blood Pressure Mean => 93 11/23/22 11:20 - Today's Visit Information Type of service Follow-up Visit (Physician/ELECTRONICS ASSEMBLER ) Arrival Mode Ambulatory Transfer Assistance None Patient Identification Verified (Name & Yes ) Patient Requires Transmission-Based No Precautions Height and Weight Body Mass Index (BMI) 22.2 BMI Classification Normal Vital Signs Temperature (97.8 F-99.1 F) 97.2 F L Temperature Source Temporal Pulse Rate (60-100) 73 Pulse Location Monitor Respiratory Rate (12-18) 18 Respiratory rate source Observation Blood Pressure (90/60-120/80) 135/73 H Blood Pressure Mean 93 History Since Last Visit- (Skip if this is Patient's initial visit) Have you changed medications since your No last visit? Any new allergies or adverse reactions No Had a fall/change in ADL's that may No increase risk of falls Signs or symptoms of abuse and/or No neglect since last visit Have you been in the hospital since your No last visit? Has dressing in place as prescribed Yes Has compression in place as prescribed N/A Has offloadiing in place as prescribed N/A Experienced any changes in pain level or No management Pain Scale: 0-10 Numeric Is Patient Pain Free? Yes WC - Nurse 1 - General Ulcer Measurement Start: 11/23/22 11:19 Freq: Status: Active Protocol: Activity Type Activity Date Activity User E-sign Co-sign Detail Recorded Client Recorded Date Recorded By Document 11/23/22 11:20 DL [id number] 11/23/22 11:22 DL 11/23/22 11:20 Wound Center Nurse 1 #1 right medial LE -Current Size (cm) - Length 1.4 -Current Size (cm) - Width 5.5 -Current Size (cm) - Depth 0.1 -Total Square Cm 7.70 -Photo Taken Yes -Exudate Amt Small -Exudate Type Serosanguineous -Wound Margin Distinct, Outline Attached -Granulation Amt None Present (0 %) -Necrosis Amt Large (67-100%) -Necrotic Tissue Type Eschar -Structure Exposed N/A -Texture (Krupa-wound Skin Appearance) Scarring -Moisture (Krupa-wound Skin Appearance) No Abnormality -Color (Krupa-wound Skin Appearance) No Abnormality -Temperature (Krupa-wound Skin No Abnormality Appearance) (Pt Warm) -Tenderness on Palpation (Krupa-wound No Skin Appearance) -Ulcer Cleansing Soap and Water -Foul Odor after Cleansing No -Anesthetic Used 5% Lidocaine Gel WC - Nurse 2 - General Ulcer CM Notes Start: 11/23/22 11:19 Freq: Status: Active Protocol: Activity Type Activity Date Activity User E-sign Co-sign Detail Recorded Client Recorded Date Recorded By Document 11/23/22 11:31 MW [id number] 11/23/22 11:35 MW Document 11/30/22 10:28 MW [id number] 11/30/22 10:30 MW 11/23/22 11/30/22 11:31 10:28 Wound Center Nurse 2 #1 right medial LE -Time 11:33 10:29 -Correct Patient Yes Yes -Correct Side, Site, Position Yes Yes -Correct Procedure Yes Yes -Procedure Performed Yes No -Type of Procedure Debridement -Clinical Debridement Subcutaneous -Tissue Removed Subcutaneous -Post Debridement (cm) - Length 0.3 0 -Post Debridement (cm) - Width 0.3 0 -Post Debridement (cm) - Depth 0.1 0 -Total Square (Post) (cm) 0.09 0 -Area of Debridement (cm) - Length 0.3 -Area of Debridement (cm) - Width 0.3 -Total Square (Area) (cm) 0.09 -Tunneling No No -Undermining/Tunneling No No -Circular Undermining No No -Wound/Ulcer Outcome Not Healed Healed- Epithelialized -Ulcer Cleansing Rinsed/ Irrigated with Saline -Foul Odor after Cleansing No -Bioengineered Tissue No -Bleeding Controlled with Pressure -Treatment Response Procedure Tolerated Well -Offloading No -Debridement - Subq, 1st 20sq cm Yes Pain Scale: 0-10 Numeric Is Patient Pain Free? Yes Yes - Nurse 3 - General Ulcer D/C NN Start: 11/23/22 11:19 Freq: Status: Active Protocol: Activity Type Activity Date Activity User E-sign Co-sign Detail Recorded Client Recorded Date Recorded By Document 11/30/22 10:42 [id number] 11/30/22 10:43 DL 11/30/22 10:42 Wound Care Center Nurse 3 #1 right medial LE -Ulcer Cleansing Rinsed/ Irrigated with Saline -Foul Odor after Cleansing No -Primary Dressing Covered/Secured with Dry Gauze & Roll Gauze, Secured with Tape Treatment Response Procedure Tolerated Well Pain Scale: 0-10 Numeric Is Patient Pain Free? Yes WC - Visit Discharge Discharge Condition Stable Ambulatory Status Ambulatory Transportation Private Auto Notes: Healed, discharged. Assessment/Plan Assessment/Plan (1) Non-pressure chronic ulcer of right calf with fat layer exposed: CODE(S): L97.212 - Non-pressure chronic ulcer of right calf with fat layer exposed (2) Leg wound, right: CODE(S): S81.801A - Unspecified open wound, right lower leg, initial encounter QUALIFIERS: Encounter type: subsequent encounter Qualified Code(s): S81.801D - Unspecified open wound, right lower leg, subsequent encounter (3) Necrosis: CODE(S): I96 - Gangrene, not elsewhere classified (4) GERD (gastroesophageal reflux disease): CODE(S): K21.9 - Gastro-esophageal reflux disease without esophagitis (5) Arthritis: CODE(S): M19.90 - Unspecified osteoarthritis, unspecified site (6) Asthma: CODE(S): J45.909 - Unspecified asthma, uncomplicated (7) History of brain cancer in adulthood: CODE(S): Z85.841 - Personal history of malignant neoplasm of brain (8) History of malignant neoplasm of brain in adulthood: CODE(S): Z85.841 - Personal history of malignant neoplasm of brain (9) History of seizures: CODE(S): Z87.898 - Personal history of other specified conditions (10) Expressive aphasia: CODE(S): R47.01 - Aphasia (11) TMJ (temporomandibular joint disorder): CODE(S): M26.609 - Unspecified temporomandibular joint disorder, unspecified side (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 The patient's traumatic wound is now completely healed and epithelialized. She is to be discharged, and will follow-up henceforth on an as-needed basis. She has been encouraged to refrain from traumatizing the site, as the recently epithelialized surface is felt to be somewhat susceptible to injury with only slight superficial disturbance. Total time: 22 minutes
== END 2022-11-30 15:26 | disposition home or self-care (01) ==
LOC: WC 09:45
PROVIDERS: PCP Family Medicine; Visit Provider Surgery
DX: L97.212 Non-pressure chronic ulcer of right calf with fat layer exposed (principal); I96 Gangrene, not elsewhere classified; G83.84 Todd's paralysis (postepileptic); S81.831S Puncture wound without foreign body, right lower leg, sequela; W17.89XS Other fall from one level to another, sequela; K21.9 Gastro-esophageal reflux disease without esophagitis; J45.909 Unspecified asthma, uncomplicated; M26.609 Unspecified temporomandibular joint disorder, unspecified side; R47.01 Aphasia; M19.90 Unspecified osteoarthritis, unspecified site; Z85.841 Personal history of malignant neoplasm of brain
CPT/HCPCS: 11042; 99213; G0463

== ENCOUNTER 2023-02-18 13:00 | Inpatient (IN) | payer MEDICARE, SELFPAY ==
[2023-02-18 13:35] VITALS: BP 99/58; PULSE 73; RESP 18; TEMP 36.5; O2SAT 92; BMI 20.8
--- NOTE | 2023-02-18 18:22 | HP.PCM_ITS ---
[facility] Date of Admission: 02/18/23 Date of Service: 02/18/23 Chief Complaint: Debility secondary to intracerebral hemorrhage. 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 The gait instability had started 4 days prior to presenting to the emergency department. She had been unable to walk secondary to this and dizziness. Prior to that she had no gait abnormality. Stat [place] CT brain at [place] emergency department was unremarkable. Neurology recommended transfer to [facility] for additional W/U. PE at [facility] was consistent with a right cranial nerve palsy and left-sided ataxia. MRI showed a new area of intraparenchymal hemorrhage in the posterior inferior right roge with surrounding edema. There were multiple small areas of prior parenchymal hemorrhage scattered in the bilateral cerebral hemispheres which could be related to radiation-induced small cavernous angiomas. The left hemangioblastoma appeared stable. The cystic lesion in the upper left roge with previous nodular enhancement no longer demonstrated nodular enhancement sugg esting an area of treated hemangioblastoma. MRA's of the head and neck were normal she had recently had a cerebral angiogram that showed no vascular lesion in the area of the acute hemorrhage. A prior MRI did show a T2 hyperintense lesion in the vicinity of the acute bleed that could have represented a small cavernoma. Patient was seen by neurosurgery who recommended the patient be allowed to recover and follow-up with neurosurgery in the office in 2 to 3 weeks time. While she was at [facility] the Sinemet, Trental and vitamin E E were all discontinued. She was seen by PT/OT/ST and it was recommended she be discharged to acute inpatient rehabilitation. She was trans ferred to [facility] acute inpatient rehab unit on 02/18/2023 for 3 hours of therapy daily to restore function/independence at, near or better than her level prior to the recent intraparenchymal hemorrhage. Post discharge from acute rehab she will follow-up with Dr. Munoz and with Dr. Jacob Ashford. [facility] Medical History (Updated 02/22/23 @ 17:[address] 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 Cathy Caro DO) Father Cancer Glioblastoma Surgical History (Updated 02/22/23 @ 17:[address] Cathy Caro DO) History of brain surgery History of cholecystectomy History of total abdominal hysterectomy Hx of LASIK Status post gamma knife treatment Social History (Updated 02/22/23 @ 17:[address] Cathy Caro DO) household members: spouse Smoking Status: Never smoker alcohol intake: never substance use type: does not use ROS ROS Narrative Limited due to severe motor aphasia. Pt understands what I am saying to her and is able to follow commands. She is able to make herself understood with hand gestures, grunting and shaking her head. Constitutional Constitutional: Reports fatigue and weakness; Denies anorexia, change in weight or night sweats Eyes Eyes: Reports change in vision and other Details: Acute right cranial nerve palsy secondary to right roge intracerebral hemorrhage. ; Denies blurry vision, eye pain or loss of vision ENT HEENT: Denies abnormal hearing, dysphagia, headache(s), hearing loss, nasal congestion or sore throat Cardiovascular Cardiovascular: Reports dizziness and weakness in extremities; Denies chest pain, dyspnea on exertion, edema, lightheadedness, orthopnea, palpitations, paroxysmal nocturnal dyspnea or syncope Respiratory/Chest Respiratory/Chest: Denies cough, dyspnea, shortness of breath at rest, shortness of breath with exertion or wheezing Gastrointestinal Gastrointestinal: Reports constipation; Denies abdominal pain, diarrhea, dyspepsia, hematemesis, hematochezia, nausea or vomiting Genitourinary Genitourinary: Reports urinary hesitancy and other Details: Urine retention ; Denies dysuria, hematuria, nocturia, urinary frequency, urinary incontinence or urinary urgency Musculoskeletal Musculoskeletal: Reports joint stiffness; Denies back pain, joint pain, joint swelling or neck pain Integumentary Integumentary: Denies change in hair, hirsutism, jaundice or non-healing lesions Neurologic Neurologic: Reports disequilibrium, dizziness and other visual disturbances; Denies confusion, focal weakness, headache(s), paresthesias, seizures or tremor(s) Psychiatric Psychiatric: Reports depression; Denies anxiety, homicidal ideation or suicidal ideation Endocrine Endocrinology: Denies change in body appearance, polydipsia or polyuria Hematologic/Lymphatic Hematologic/Lymphatic: Denies easy bleeding, easy bruising or lymphadenopathy Allergic/Immunologic Allergic/Immunologic: Reports asthma; Denies rhinitis or eczemia Vital Signs Vital Signs Vital Signs: 02/18/23 13:35 Temperature 97.7 F L Temperature Source Oral Pulse Rate 73 Respiratory Rate 18 Blood Pressure 99/58 L Blood Pressure Mean 71 Blood Pressure Source Monitor Blood Pressure Position Sitting Blood Pressure Location Left Arm Pulse Ox 92 Oxygen Delivery Method Room Air Weight Weight: 129 lb Body Mass Index (BMI) 20.8 Physical Exam Const alert and no apparent distress Constitutional Narrative: She has a patch over her left eye. She has severe aphasia but is able to follow my commands and make her self understood with hand gestures, nodding her head and grunting. She has a few words that she says that can be clearly understood......I know comes out very clearly General Appearance: cooperative, well kempt and well developed; Negative for uncooperative, combative or ill appearing HEENT normocephalic and hearing grossly normal bilaterally HEENT Narrative: Dry mucous membranes Eyes PERRL, EOMs intact bilaterally and conjunctivae normal Eyes Narrative: R CN palsy. General Eye: normal light reflex Neck supple, No nodes and no carotid bruits General: trachea midline Chest Chest: symmetrical chest wall rise Resp normal respiratory effort, normal air movement, no use of accessory muscles and clear to auscultation bilaterally Effort and Inspection: able to speak in complete sentences Cardio regular rate, regular rhythm, S1 normal heart sound, S2 normal heart sound, no murmurs, no rub and no gallops Cardio Narrative: No ectopy GI normal to inspection, nondistended, normoactive bowel sounds, soft to palpation, non-tender, hepatosplenomegaly and no masses GI Narrative: No guarding with palpation. No abdominal bruits Narrative: Mcneal catheter was removed prior to discharge from [facility]. She had a Mcneal catheter for urine retention. Back/Spine no CVA tenderness Extremity no calf tenderness and no pedal edema Extremity Narrative: Moving all extremities. Left ataxia with heel kirkpatrick and finger nose Skin no jaundice General Skin Exam: no breakdown Rashes: no rashes Hair: normal Neuro moves all extremities Neuro Narrative: No facial droop, left-sided ataxia is positive, no extinction, right cranial nerve palsy with Left eye deviated laterally, expressive aphasia. Psych mental status grossly normal, cooperative, affect normal, denies hallucinations, denies homicidal ideation and denies suicidal ideation Results Lab / Micro Data Result Diagrams: 02/19/23 06:40 02/22/23 05:34 Assessment & Plan Assessment/Plan (1) Debility: (2) Intraparenchymal hemorrhage of brain: (3) Diplopia: (4) Sixth cranial nerve palsy: (5) Ataxia: (6) Expressive aphasia: (7) Motor aphasia: (8) Depression: (9) Glioma of frontal lobe: (10) Hemangioblastoma of brain: (11) Asthma: (12) Hypothyroidism: PLAN: Plan PLAN PT for gait stability OT for ADL's ST for evaluation Analgesics as needed Bowel protocol Fall precautions Assess for Anxiety/Depression GI prophylaxis -not necessary at this time. She denies nausea/vomiting/abdominal pain and has no history of peptic ulcer disease. DVT prophylaxis with ABHIJEETs and ANNY hernandez Follow up with Dr. Ashford, PCP and Dr. Munoz following DC from [facility] AM lab including CMP, CBC, Mag and Phos Charges/Coding Visit Charges Inpatient E&M: 19635 Init Hosp L3
[2023-02-18 22:00] VITALS: BP 97/58; PULSE 70; RESP 18; TEMP 36.7; O2SAT 92
--- NOTE | 2023-02-19 03:10 | NURSING ---
0130 pt rings to use the bsc and attempted to urinate with no success, bladders scan completed and pt was found to have 427cc in her bladder. pt then attempted to to urinate again with no success. pt was then straight cathed for 450cc of clear dark yellow urine with a strong odor. pt tolerated the procedure well
[2023-02-19] MEDS: Levothyroxine 25 MCG TABLET PO (05:59)
[2023-02-19 07:00] VITALS: O2SAT 96
[2023-02-19 07:17] LABS: Absolute Lymphocyte Count 1.91 X10^3/uL (0.83-4.51); Absolute Neutrophil Count 2.8 X10^3/uL (2.0-7.7); Basophil# 0.05 X10^3/uL; Basophil% 0.9 % (0-1); Eosinophil# 0.16 X10^3/uL; Hematocrit 37.8 % (37-47); Hemoglobin 12.6 g/dL (12.0-15.0); Lymphocyte # 1.91 X10^3/ul (0.83-4.51); Lymphocyte % 35.4 % (19-41); Mean Corp Hgb Conc 33.3 g/dL (32-36); Mean Corpuscular Hgb 29.2 pg (27.0-32.0); Mean Corpuscular Volume 87.7 fL (81-99); Mean Platelet Vol. 9.7 fl (6.2-12.0); Monocyte# 0.48 X10^3/uL; Monocyte% 8.9 % (0-10); NRBC Flagged by Analyzer 0 % (0-5); Neutrophil # 2.78 X10^3/uL (2.7-7.7); Neutrophil % 51.4 % (47-70); Platelet Count 208 K/mm3 (150-450); RBC Distribution Width SD 41.2 fl (35.1-43.9); Red Blood Count 4.31 M/mm3 (4.2-5.4); White Blood Count 5.4 K/mm3 (4.4-11.0)
[2023-02-19 07:27] VITALS: BP 90/60; PULSE 64; RESP 17; TEMP 36.7; O2SAT 96
[2023-02-19 08:08] LABS: ALB/GLOB Ratio 1.1 RATIO (0.9-2.4); AST(SGOT) 15 U/L (15-37); Alanine Aminotransfer ALT/SGPT 24 U/L (13-56); Albumin, Serum 3.5 g/dL (3.2-5.0); Alkaline Phosphatase 143 U/L (45-117); Anion Gap 6 (5-15); BUN 20 mg/dL (7-18); Calcium,Total 8.9 mg/dL (8.5-10.1); Chloride 108 mmol/L (98-107); Creatinine, Serum 0.95 mg/dL (0.55-1.02); EST Glomerular Filtration Rate 63 mL/min (>60); Est Glom Filt Rate - Afr Amer 76 mL/min (>60); Estimated Creatinine Clearance 55.26 ml/min; Globulin 3.3 g/dL (2.2-4.2); Glucose 92 mg/dL (74-106); Magnesium 2.3 mg/dL (1.6-2.6); Phosphorus 3.7 mg/dL (2.5-4.9); Protein, Total 6.8 g/dL (6.4-8.2); Sodium Level 141 mmol/L (136-145); T4 Free Direct 0.86 ng/dL (0.76-1.46); Thyroid Stim Hormone (TSH) 3.19 uIU/mL (0.358-3.74)
[2023-02-19] MEDS: Escitalopram Oxalate 10 MG Tablet 5 MG PO (10:07)
[2023-02-19] MEDS: Senna/Docusate Sodium 1 Tablet 2 TABLET PO (10:08)
[2023-02-19 21:30] VITALS: BP 96/50; PULSE 65; RESP 17; TEMP 36.7; O2SAT 93
[2023-02-20] MEDS: Levothyroxine 25 MCG TABLET PO (05:54)
[2023-02-20 06:38] VITALS: O2SAT 92
[2023-02-20 07:55] VITALS: BP 94/54; PULSE 61; RESP 16; TEMP 36.4
[2023-02-20] MEDS: Senna/Docusate Sodium 1 Tablet 2 TABLET PO (08:27)
[2023-02-20] MEDS: Escitalopram Oxalate 10 MG Tablet 5 MG PO (08:27)
[2023-02-20 13:25] LABS: Bacteria 0 SEEN /hpf (None Seen); Mucous, Urine 0 SEEN /hpf (<or=2+); Red Blood Cells-Urine 0 SEEN /hpf (0-5); Squamous Epithelial Cells - UA 0 SEEN /hpf (5-10); White Blood Cells 0 SEEN /hpf (0-5)
[2023-02-20 13:30] LABS: Color, Urine Yellow (Yellow); Glucose, Dipstick Normal (Normal); Ketone-Dipstick Negative (Negative); Leukocyte Esterase-Dipstick 25 /ul (Negative); Nitrite-Dipstick Negative (Negative); Occult Blood-Urine 10 /ul (Negative); Protein-Dipstick 15 mg/dl (Negative); Urine Bilirubin Dipstick Negative (Negative); Urine Clarity Clear (Clear); Urine Urobilinogen Normal (Normal)
[2023-02-20 20:30] VITALS: BP 93/58; PULSE 67; RESP 16; TEMP 36.8; O2SAT 93
--- NOTE | 2023-02-20 23:57 | NURSING ---
5/6 pt had c-pap on for 3.08 this hs
[2023-02-21] MEDS: Levothyroxine 25 MCG TABLET PO (05:30)
[2023-02-21 07:01] VITALS: O2SAT 93
[2023-02-21 07:19] VITALS: BP 90/48; PULSE 71; RESP 16; TEMP 36.7; O2SAT 93
[2023-02-21] MEDS: Senna/Docusate Sodium 1 Tablet 2 TABLET PO ×2 (08:09→20:56)
[2023-02-21] MEDS: Escitalopram Oxalate 10 MG Tablet 5 MG PO (08:09)
--- NOTE | 2023-02-21 10:58 | PCM.RU.PYE ---
Admission Information Primary Diagnosis:: Debility post hemorrhagic CVA. Status Changes from Prescreening?: No changes Identified Actual Problem List:: Falls, Depression, Bladder Incontinence (She does not have incontinence she has urine retention.), Mobility Impaired, Ineffective Communication and Alteration-Leisure Activ. Potential Problem List:: DVT, Bleeding, Infection, UTI, Aspiration, Falls, Skin Integrity and Depression Risk of Complications DVT: ANNY Hose and Sequential Compression Device Bleeding: Monitor Lab Values, Nursing to Teach Precautions for anti-coagulation therapy., Wound, if applicable, to be assessed every shift. and Stroke patients assessed for lethargy or change in status. Infection: Clinical Staff to Monitor for S/S of infection: and S/S of infection include fever, redness, warmth, etc. Urinary Tract Infection: Monitor for frequency, burning, discomfort, or incontinence. and Nursing will obtain urine sample for urinalysis and C&S when ordered. Aspiration: Clinical staff will monitor for coughing, drooling, congestion., Speech will evaluate swallowing and dsyphasia. and Nursing will monitor patient swallowing during meals. Falls: Patient will be evaluated for Fall Precautions and Patient will be placed on Fall Precautions as indicated per protocol. Skin Breakdown: Nursing will assess skin daily using assessment tool. and Nursing will place on Skin Breakdown Precautions as indicated. Pain: Clinical staff will assess patient's pain level per protocol., Medications will be given, if needed, and the pain level reassessed. and Other methods: Massage, distraction, decrease stimulus, etc. used PRN. Plan of Care Patient requires physician specializing in physical medicine and rehab oversight to provide close medical supervision of rehab issues including: Pain Management, Sleep Problems, Bowel and Bladder, Medical and co-morbidity Management, DVT prophylaxis, Rehabilitation Leadership and Coordination of treatment team Patient needs Physical Therapy: For a minimum of 1 hour and At least 5 out of 7 days Patient needs Physical Therapy to improve:: Mobility, Strengthening, Transfers, Stretching, ROM, Endurance, Stairs, Gait and Balance Patient needs Occupational Therapy: For a minimum of 1 hour and At least 5 out of 7 days Patient needs Occupational Therapy to improve ADL's incl.: Eating, Grooming, Bathing, Dressing, Toileting, Toilet transfers, Community Reintegration, Higher functioning activities, Household tasks, Adaptive Equipment, Splinting and Other activities as determined Patient requires speech therapy: For a minimum of 1 hour and At least 5 out of 7 days Patient requires speech therapy for: Swallowing, Cognition, Language Skills and Compensatory Strategies Patient requires 24/ Rehabilitation Nursing for: Pain Issues, Identifying and preventing risk factors, Monitoring and reporting current medical conditions, Assisting with ambulation, transfer, and all ADL's, Teaching patients about disease process and medications, Family teaching, Providing safe environment, Bowel and Bladder Issues, Skin integrity and Medication Management Patient needs Associate Faculty/ Case Management for: Discharge Planning, Arranging Home Equipment or Services and Family Interventions Patient needs Dietary and Nutrition Services for: Adequate Nutrition, Nutritional Supplements and Nutritional Education Goals Patient will remain: free from falls Patient will perform bed mobility at: MOD I level of assist. Patient will complete transfers from bed to chair at: MOD I level of assist. Patient will ambulate: - (250 feet with the least restrictive device at standby assist on various surfaces) Patient will complete upper body dressing at: MOD I level of assist. Patient will complete lower body dressing at: MOD I level of assist. Patient will perform bathing at: MOD I level of assist. Patient will complete grooming at: MOD I level of assist. Patient will complete home management skills at: MOD I level of assist. Patient will achieve: 12 stairs (With 1 handrail at standby assist to allow access to the basement) and - (1 curb step) Patient will have pain level of: of 3 or less Patient's skin will: remain intact Patient will receive: adequate nutrition. Discharge Planning Estimated Length of stay (days): 21 Anticipated D/C Destination: Home with Outpt Therapy Was Preadmission Assessment Accurate?: Yes
--- NOTE | 2023-02-21 11:02 | PCM.PROGNOTE ---
Subjective Subjective Afebrile VSS-the blood pressure since Tuesday a.m. has ranged from 90/60 299/58. Maintaining appropriate oxygen saturation on RA Oral food intake is adequate but fluid intake has been poor. Weight on November 17 was 140 pounds and current weight is 129 pounds. Discussed with nursing - refused SCD's, not compliant with CPAP Reviewed the PT/OT/ST notes Medication list reviewed. Recent TSH was normal. All lab from 02/19/2023 was reviewed. CBC is unremarkable. Sodium is 141 and the potassium was 4. The BUN is 20 with a creatinine of 0.95 and a BUN/creatinine ratio of 21. Estimated creatinine clearance is 55.26. Calcium, magnesium and phosphorus are all within normal limits. Bilirubin, AST, ALT are all normal but the alk phos is increased at 143. UA on 02/20/2023 was positive for leukocyte esterase at 25 but there were 0 WBCs seen and no bacteria. Postvoid residual yesterday was 400 and nursing inserted a Mcneal catheter. Urine culture was sent by nursing and the preliminary is no growth. Tells me that she is sleeping OK. appetite is good. She is working hard with therapy and is already making improvement. Denies BRICEÑO, CP, SOB, cough, abd pain, calf pain and lightheadedness. Objective Data Objective Data Vital Signs: Vital Signs Temp Pulse Resp BP Pulse Ox O2 Del Method 98.1 F 71 16 90/48 L 93 Room Air 02/21/23 07:19 02/21/23 07:19 02/21/23 07:19 02/21/23 07:19 02/21/23 07:19 02/21/23 07:19 Oxygen Delivery Method Room Air Weight: 129 lb Body Mass Index (BMI) 20.8 Intake & Output: Intake and Output for Last 24 Hours 02/19/23 02/20/23 02/21/23 23:59 23:59 23:59 Intake Total 1160 / 1160 970 / 970 60 / 60 Output Total 750 / 750 875 / 875 100 / 100 Balance 410 / 410 95 / 95 -40 / -40 Lab / Micro Data Result Diagrams: 02/19/23 06:40 02/22/23 05:34 Labs: Laboratory Results - last 24 hr 02/20/23 13:15: Urine Color Yellow, Urine Clarity Clear, Urine pH 5.0, Ur Specific [place] 1.020, Urine Protein 15 H, Urine Glucose (UA) Normal, Urine Ketones Negative, Urine Occult Blood 10 H, Urine Nitrite Negative, Urine Bilirubin Negative, Urine Urobilinogen Normal, Ur Leukocyte Esterase 25 H, Urine RBC 0 SEEN, Urine WBC 0 SEEN, Ur Squamous Epith Cells 0 SEEN, Urine Bacteria 0 SEEN, Urine Mucus 0 SEEN Micro: Microbiology 02/20/23 13:15 Urine Catheter - Catheter Urine Culture - Preliminary Culture exhibits no growth. Physical Exam Const alert and no apparent distress Constitutional Narrative: pleasant and animated. General Appearance: cooperative Eyes Eyes Narrative: Left eye patch is in place. Neck General: trachea midline Resp normal respiratory effort and clear to auscultation bilaterally Cardio regular rate, regular rhythm, no murmurs and no gallops GI normal to inspection, nondistended, normoactive bowel sounds, soft to palpation and non-tender Extremity no calf tenderness General Extremity: Negative for edema Skin General Skin Exam: no breakdown Rashes: no rashes Assessment & Plan Assessment/Plan (1) Debility: (2) Intraparenchymal hemorrhage of brain: (3) Diplopia: (4) Sixth cranial nerve palsy: (5) Ataxia: (6) Expressive aphasia: (7) Motor aphasia: (8) Depression: (9) Glioma of frontal lobe: (10) Hemangioblastoma of brain: (11) Asthma: (12) Hypothyroidism: PLAN: Plan 1. Continue therapy 2. Check a cortisol and BMP in the a.m. 3. I spoke to her privately. He seems overwhelmed and worried and is distrustful of medicine in general. He is knowledgeable about his 's condition and wonders what the future will home. We discussed the effect radiation had on small blood vessels and why she is having small bleeds. HE realizes that we can not predict when or if she will have another bleed. He also asked about the urine retention and if this is due to the stroke and if it will resolve. I told him I would get a KUB to r/o constipation as the etiology of the retention and he was good with this. I also related we checked for a UTI and there is not one. I suspect it is due to the stroke and may resolve in the next week or so. Will do a voiding trial in a few days. Charges/Coding Visit Charges Inpatient E&M: 55023 Subs Hosp L2
--- NOTE | 2023-02-21 15:11 | CASEMGMT ---
Social Work Received call from 's brother and CARLO, Caleb and Tania Jay. Both are not listed as a contact, which they acknowledged. Brother/CARLO wanted to express their support in assisting pt's with navigation of DC plans and recovery for pt. Family shared story of past medical staff physician not leaving a good taste in ['s] mouth. Both are retired and able/willing to assist , since he works. Family cautioned this worker that has a lot of anger, emotions and exhaustion dealing with pt and the medical system the last 20 years. Family offered to be a part of Team, DC plans and conversation, if allows. SW appreciated insight and will speak with to confirm if family can be added as contacts for staff to speak further with them. SW contacted to update on above and ask about adding to contact list. agreed and is appreciative of support from family. reiterated frustrations with the happenings with pt over the last 20 years. wanting blunt/honest assessment of pt's future and expressed not knowing anything that is going/being left in the dark. However, not referring to experience thus far in RU. SW provided supportive listening, emotional support. Expressed empathy for past years and having a bad experiences; acknowledged feelings of exhaustion and frustration. SW acknowledged does not have to trust this worker or staff until proven otherwise. SW explained the goal for RU Team is to provide explanations, work as a team with pt and in recovery and future planning. SW offered for Dr. Caro to contact and schedule a time to speak in person with details. agreed and provided available times outside of work schedule. SW reiterated this worker is here to assist through RU stay, not wanting to feel alone, and has support with DC planning, etc. stated that sounds nice but I can't believe you until I see it. SW validated. is planning to be present for Team meeting to get more information, and agreed for brother and CARLO to attend via conference call. SW to continue to follow. -- SW spoke with PT supervisor kennel and Dr. Caro of above conversations. agreed to meet with to provide explanation and answer questions. -- Dr. Caro met with this date about 1330. GERMÁN Moreno
--- NOTE | 2023-02-21 18:00 | RAD_ITS ---
STUDY: X-RAY - ABDOMEN/PELVIS REASON FOR EXAM: Female, 62 years old. obstipation TECHNIQUE: COMPARISON: None. FINDINGS: Normal visualized lung bases. There is an unremarkable bowel gas pattern. There is diffuse colonic fecal retention. There is no demonstrated free abdominal air. Surgical clips in the right upper quadrant. Normal soft tissue structures. Normal visualized osseous structures. RAD/Abdomen Single View IMPRESSION: Colonic fecal retention. Electronically Signed: Negro Gordon DO at 19:13 EDT ,
[2023-02-21 19:27] VITALS: BP 103/59; PULSE 66; RESP 14; TEMP 36.2; O2SAT 94
[2023-02-21] MEDS: Magnesium Hydroxide 30 ML UDC 45 ML PO (20:56)
--- NOTE | 2023-02-22 03:03 | NURSING ---
Pt wore cpap 37 minutes, declines to put back on.
[2023-02-22] MEDS: Levothyroxine 25 MCG TABLET PO (05:14)
[2023-02-22 06:09] LABS: Anion Gap 4 (5-15); BUN 16 mg/dL (7-18); BUN/Creat Ratio 17.2 RATIO (10-20); Calcium,Total 8.6 mg/dL (8.5-10.1); Chloride 108 mmol/L (98-107); Creatinine, Serum 0.93 mg/dL (0.55-1.02); EST Glomerular Filtration Rate 64 mL/min (>60); Est Glom Filt Rate - Afr Amer 78 mL/min (>60); Estimated Creatinine Clearance 56.45 ml/min; Glucose 93 mg/dL (74-106); Sodium Level 141 mmol/L (136-145)
[2023-02-22] MEDS: Escitalopram Oxalate 10 MG Tablet 5 MG PO (08:30)
[2023-02-22 09:06] VITALS: BP 91/54; PULSE 65; RESP 16; TEMP 37.1; O2SAT 92
--- NOTE | 2023-02-22 17:58 | PCM.PROGNOTE ---
Subjective Subjective Afebrile VSS-blood pressure is on the low side however the mean arterial pressure ranges from 62-73 which is adequate. She denies lightheadedness. Maintaining appropriate oxygen saturation on RA Oral intake is poor for fluids, adequate for food Discussed with nursing -not consistently wearing CPAP at night or the left eye patch. Reviewed the PT/OT/ST notes Medication list reviewed. Cortisol is 20.2 which is normal in this stressful situation. More importantly it is not low. Electrolytes are unremarkable and the BUN is 16 with a creatinine of 0.93 which is stable. Jessie denies lightheadedness, vertigo, CP, SOB at rest, SOB with exertion, cough, nausea, vomiting, abd pain, diarrhea, constipation, dysuria, calf pain and ankle swelling. Objective Data Objective Data Vital Signs: Vital Signs Temp Pulse Resp BP Pulse Ox O2 Del Method 98.8 F 65 16 91/54 L 92 Room Air 02/22/23 09:06 02/22/23 09:06 02/22/23 09:06 02/22/23 09:06 02/22/23 09:06 02/22/23 09:06 Oxygen Delivery Method Room Air Weight: 129 lb Body Mass Index (BMI) 20.8 Intake & Output: Intake and Output for Last 24 Hours 02/20/23 02/21/23 02/22/23 23:59 23:59 23:59 Intake Total 970 / 970 780 / 780 1180 / 1180 Output Total 875 / 875 875 / 875 675 / 675 Balance 95 / 95 -95 / -95 505 / 505 Lab / Micro Data Result Diagrams: 02/19/23 06:40 02/23/23 05:43 Labs: Laboratory Results - last 24 hr 02/22/23 05:34: Sodium 141, Potassium 4.0, Chloride 108 H, Carbon Dioxide 29.0, Anion Gap 4 L, BUN 16, Creatinine 0.93, Estim Creat Clear Calc 56.45, Est GFR (MDRD) Af Amer 78, Est GFR (MDRD) Non-Af 64, BUN/Creatinine Ratio 17.2, Glucose 93, Calcium 8.6 02/22/23 05:34: Cortisol 20.20 Micro: Microbiology 02/20/23 13:15 Urine Catheter - Catheter Urine Culture - Final Culture exhibits no growth. Radiography Diagnostic Testing: Radiology Impression KUB X-Ray 02/21/23 18:00 IMPRESSION: Colonic fecal retention. Electronically Signed: Negro Gordon DO at 19:13 EDT Reading Location ID and State: [facility] / [place] Tel [phone], Service support , Physical Exam Const alert and no apparent distress General Appearance: cooperative HEENT moist oral mucous membranes Resp normal respiratory effort, no use of accessory muscles and clear to auscultation bilaterally Effort and Inspection: Negative for tachypneic or labored Cardio regular rate, regular rhythm and no gallops GI normal to inspection, nondistended, normoactive bowel sounds, non-tender and non-distended GI Narrative: no guarding with palpation Extremity Negative for no calf tenderness General Extremity: Negative for edema Skin General Skin Exam: no breakdown Rashes: no rashes Psych affect normal Psych Narrative: smiles a lot, interacts with staff and others well, able to communicate with gestures and voice manipulation. No tears, sleeping well and eating well. 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 Continue therapy 2. Discontinue Mcneal since constipation has resolved and do PVRs x3. 3. Franc is very angry, directed at the entire medical community. Feels he is being kept in the dark. I have been explaining everything as we have been progressing. Offered to make an appt with or Mag for a second opinion. Prognosis is not clear at this time. If in fact the IPH 's are due to the custodial effects of radiation on the smaller vessels of the brain then they will likely continue. I am not aware of any treatment for this but, will try and do some research into this. Charges/Coding Visit Charges Inpatient E&M: 07970 Subs Hosp L2
[2023-02-22 19:20] VITALS: BP 94/60; PULSE 68; RESP 18; TEMP 36.8; O2SAT 94
[2023-02-23 06:00] VITALS: BMI 20.7
[2023-02-23] MEDS: Levothyroxine 25 MCG TABLET PO (06:27)
[2023-02-23 06:35] LABS: Anion Gap 5 (5-15); BUN 16 mg/dL (7-18); BUN/Creat Ratio 18.2 RATIO (10-20); Calcium,Total 8.4 mg/dL (8.5-10.1); Chloride 110 mmol/L (98-107); Creatinine, Serum 0.88 mg/dL (0.55-1.02); EST Glomerular Filtration Rate 69 mL/min (>60); Est Glom Filt Rate - Afr Amer 83 mL/min (>60); Estimated Creatinine Clearance 59.66 ml/min; Glucose 91 mg/dL (74-106); Potassium 3.9 mmol/L (3.5-5.1); Sodium Level 141 mmol/L (136-145)
[2023-02-23 08:08] VITALS: BP 98/45; PULSE 63; RESP 18; TEMP 36.3; O2SAT 93
[2023-02-23] MEDS: Escitalopram Oxalate 10 MG Tablet 5 MG PO (08:45)
[2023-02-23] MEDS: Senna/Docusate Sodium 1 Tablet 2 TABLET PO (08:46)
[2023-02-23 20:00] VITALS: BP 100/44; PULSE 76; RESP 16; TEMP 36.9; O2SAT 94
[2023-02-23 20:21] LABS: Bacteria 0 SEEN /hpf (None Seen); Color, Urine Yellow (Yellow); Glucose, Dipstick Normal (Normal); Ketone-Dipstick Negative (Negative); Leukocyte Esterase-Dipstick 25 /ul (Negative); Mucous, Urine 0 SEEN /hpf (<or=2+); Nitrite-Dipstick Negative (Negative); Occult Blood-Urine 10 /ul (Negative); Protein-Dipstick 15 mg/dl (Negative); Red Blood Cells-Urine 0 SEEN /hpf (0-5); Specific Gravity, Urine 1.015 (1.002-1.030); Squamous Epithelial Cells - UA 0 SEEN /hpf (5-10); Urine Bilirubin Dipstick Negative (Negative); Urine Clarity Clear (Clear); Urine Urobilinogen Normal (Normal); Urine pH 6.5 (5.0 - 8.0)
[2023-02-23 20:37] LABS: White Blood Cells 0-5 SEEN /hpf (0-5)
--- NOTE | 2023-02-24 02:54 | NURSING ---
Reviewed and agree with Sundar HERNANDEZ, documentation and assessment charting.
[2023-02-24] MEDS: Levothyroxine 25 MCG TABLET PO (05:44)
[2023-02-24 07:30] VITALS: BP 95/49; PULSE 66; RESP 16; TEMP 36.8; O2SAT 93
[2023-02-24] MEDS: Escitalopram Oxalate 10 MG Tablet 5 MG PO (08:35)
[2023-02-24] MEDS: Senna/Docusate Sodium 1 Tablet 2 TABLET PO (08:35)
--- NOTE | 2023-02-24 12:45 | CASEMGMT ---
Addendum entered by Mercedez Vredin 02/25/23 12:50: [facility] accepted pt. Tania requesting appeal information for IRU. SW provided. Plan is to file the appeal on 02/28. Will continue to follow. Addendum entered by Mercedez Verdin 02/25/23 09:55: Referrals sent to TCU and [facility] via [employer]([facility] Received secure email from Tania with more questions. SW responded with answers. Addendum entered by Mercedez Verdin 02/24/23 16:43: Received call from pt's SANDRA and after discussing with after Team meeting. All are in agreement for a SNF referral at [facility]. SW answered questions and provided supportive listening. SW sent a list of SNF choices via [employer] Guide and educated to Medicare.gov for further specifics. Answered questions about TCU and [facility]. Both would like a referral and will review the list for other options. Both expressed appreciation for this worker's assistance. Original Note: Social Work IDT met with patient, then rAiadne via conference all for Team meeting. Discussed patient's progress in PT/OT/ST/SN. Educated to Medicare approval of 13 total days with [place] 03/03. IDT is recommending 24/7 hands-on care. Offered SNF for skilled stay initially or completing [facility] paperwork for to stay home with her. Discussed some barriers to return home at this time such as steps, fatigues with activity, speech, safety, poor/double vision. If home is the choice, offered therapy training. Family to discuss and contact this worker for assistance. Plan: [place] 03/03, home with 24/7 care or SNF skilled GERMÁN Moreno
--- NOTE | 2023-02-24 16:22 | PCM.PROGNOTE ---
Subjective Subjective Jessie was seen on team rounds today. Her Franc was present in the room and her brother and his listened in on the phone. Afebrile VSS-blood pressures are on the low side but stable and there has been no mean arterial pressure less than 60. Heart rate is within normal limits. Maintaining appropriate oxygen saturation on RA Oral intake is adequate She has had 2 post void residuals done since the Mcneal was discontinued on 02/23/2023 and they have been 0 and 115. She denies any dysuria. The UA done yesterday prior to discontinuing the Mcneal showed 0-5 WBCs per high-power field with no bacteria and negative nitrite. Discussed with nursing - no problems that need addressed Reviewed the PT/OT/ST notes Medication list reviewed. Jessie denies pain, lightheadedness, shortness of breath, cough, nausea/vomiting/abdominal pain, dysuria, calf pain and double vision when she has the left eye patch on. She likes to take the eye patch off when she is reading or using her cell phone and then she has diplopia. Objective Data Objective Data Vital Signs: Vital Signs Temp Pulse Resp BP Pulse Ox O2 Del Method 98.3 F 66 16 95/49 L 93 Room Air 02/24/23 07:30 02/24/23 07:30 02/24/23 07:30 02/24/23 07:30 02/24/23 07:30 02/24/23 07:30 Oxygen Delivery Method Room Air Weight: 128 lb 1.417 oz Body Mass Index (BMI) 20.7 Intake & Output: Intake and Output for Last 24 Hours 02/22/23 02/23/23 02/24/23 23:59 23:59 23:59 Intake Total 1180 / 1180 960 / 960 620 / 620 Output Total 825 / 825 675 / 675 700 / 700 Balance 355 / 355 285 / 285 -80 / -80 Lab / Micro Data Result Diagrams: 02/19/23 06:40 02/23/23 05:43 Labs: Laboratory Results - last 24 hr 02/23/23 16:50: Urine Color Yellow, Urine Clarity Clear, Urine pH 6.5, Ur Specific [place] 1.015, Urine Protein 15 H, Urine Glucose (UA) Normal, Urine Ketones Negative, Urine Occult Blood 10 H, Urine Nitrite Negative, Urine Bilirubin Negative, Urine Urobilinogen Normal, Ur Leukocyte Esterase 25 H, Urine RBC 0 SEEN, Urine WBC 0-5 SEEN, Ur Squamous Epith Cells 0 SEEN, Urine Bacteria 0 SEEN, Urine Mucus 0 SEEN Micro: Microbiology 02/20/23 13:15 Urine Catheter - Catheter Urine Culture - Final Culture exhibits no growth. Physical Exam Const alert Constitutional Narrative: She is very animated and outgoing. Always in a good mood. General Appearance: cooperative HEENT moist oral mucous membranes Eyes Eyes Narrative: The R eye is not crossing the midline when looking laterally. She has a patch on the Left eye most of the time. Neck supple Resp normal respiratory effort and clear to auscultation bilaterally Effort and Inspection: Negative for tachypneic Cardio regular rate, regular rhythm and no gallops GI normal to inspection, nondistended, normoactive bowel sounds, soft to palpation and non-tender Extremity no calf tenderness General Extremity: Negative for edema Skin General Skin Exam: no breakdown Rashes: no rashes Assessment & Plan Assessment/Plan (1) Debility: (2) Intraparenchymal hemorrhage of brain: (3) Diplopia: (4) Sixth cranial nerve palsy: (5) Ataxia: (6) Expressive aphasia: (7) Motor aphasia: (8) Depression: (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 Mcneal catheter was discontinued on 02/23/2023 and postvoid residuals have been good. PLAN: Plan 1. Continue therapy 2. Will likely need to a SNF at discharge unless family is able to provide 24/7 supervision at home. 3. Franc is very frustrated with the medical community in general. He feels information is with held from him and his questions do not get answered. He was to know what they have to look forward to.......will she have additional bleeds or not. Will things get worse because radiation has a cumulative effect and pts develop adverse complications long after the radiation has been completed. He is not happy with [facility] neurology and he would be interested in getting a second opinion or at least a doctor who will answer his questions and talk with him. Will talk with Dr. Do to see if he has any thoughts on the effects of radiation on the brain 20 years later and if there are any new studies being done on this. May refer to Dr. Hathaway or Dr. Cobian to see the patient. They see Dr. Ashford for ROS only. 4. Having regular BM's now. 5. She is tolerating Escitalopram with no adverse reaction and will continue Charges/Coding Visit Charges Inpatient E&M: 25013 Subs Hosp L2
[2023-02-24 19:27] VITALS: BP 102/52; PULSE 68; RESP 18; TEMP 36.5; O2SAT 92
[2023-02-24 20:45] VITALS: PULSE 68; RESP 18; O2SAT 92
--- NOTE | 2023-02-25 03:13 | NURSING ---
Reviewed and agree with Sundar HERNANDEZ, documentation and assessment charting.
[2023-02-25] MEDS: Levothyroxine 25 MCG TABLET PO (06:45)
[2023-02-25 07:46] VITALS: BP 106/60; PULSE 67; RESP 18; TEMP 36.7; O2SAT 96
[2023-02-25] MEDS: Escitalopram Oxalate 10 MG Tablet 5 MG PO (08:34)
[2023-02-25 20:08] VITALS: BP 95/54; PULSE 75; RESP 17; TEMP 36.6; O2SAT 96
[2023-02-26 03:58] LABS: Mucous, Urine 0 SEEN /hpf (<or=2+); Red Blood Cells-Urine 0 SEEN /hpf (0-5); Squamous Epithelial Cells - UA 0 SEEN /hpf (5-10)
[2023-02-26 04:13] LABS: Color, Urine Yellow (Yellow); Glucose, Dipstick Normal (Normal); Ketone-Dipstick Negative (Negative); Leukocyte Esterase-Dipstick 25 /ul (Negative); Nitrite-Dipstick Negative (Negative); Occult Blood-Urine 10 /ul (Negative); Protein-Dipstick Negative (Negative); Specific Gravity, Urine 1.015 (1.002-1.030); Urine Bilirubin Dipstick Negative (Negative); Urine Clarity Clear (Clear); Urine Urobilinogen Normal (Normal); Urine pH 6.5 (5.0 - 8.0)
[2023-02-26 04:46] LABS: Bacteria 4+ /hpf (None Seen); White Blood Cells 0-5 SEEN /hpf (0-5)
[2023-02-26] MEDS: Levothyroxine 25 MCG TABLET PO (06:24)
[2023-02-26 07:48] VITALS: BP 104/60; PULSE 61; RESP 16; TEMP 36.3; O2SAT 95
[2023-02-26] MEDS: Escitalopram Oxalate 10 MG Tablet 5 MG PO (10:16)
[2023-02-26] MEDS: Senna/Docusate Sodium 1 Tablet 2 TABLET PO (10:17)
[2023-02-26 19:29] VITALS: BP 107/64; PULSE 75; RESP 17; TEMP 36.4; O2SAT 93
[2023-02-27] MEDS: Levothyroxine 25 MCG TABLET PO (06:07)
[2023-02-27 07:36] VITALS: BP 96/44; PULSE 63; RESP 18; TEMP 36.9; O2SAT 94
[2023-02-27] MEDS: Escitalopram Oxalate 10 MG Tablet 5 MG PO (09:46)
[2023-02-27] MEDS: Senna/Docusate Sodium 1 Tablet 2 TABLET PO (09:46)
[2023-02-27 22:00] VITALS: BP 113/57; PULSE 75; RESP 19; TEMP 37.2; O2SAT 96
[2023-02-28] MEDS: Levothyroxine 25 MCG TABLET PO (06:44)
[2023-02-28 07:25] VITALS: BP 95/60; PULSE 65; RESP 16; TEMP 36.5; O2SAT 96
[2023-02-28] MEDS: Escitalopram Oxalate 10 MG Tablet 5 MG PO (10:06)
[2023-02-28] MEDS: Ciprofloxacin 500 MG Tablet PO ×2 (10:07→22:33)
--- NOTE | 2023-02-28 11:35 | CASEMGMT ---
Addendum entered by Mercedez Verdin 03/02/23 13:50: transporting. 7000 completed. Sent to [facility] Original Note: Social Work Received email from Tania stating toured [facility] and wants pt to transition there at [place]; they are not electing to appeal. SW updated IDT and remove from TCU list. Updated W. SW to complete 7000 and schedule transport. Plan: [place] 03/03 to [place], skilled GERMÁN MorenoW
[2023-02-28 19:23] VITALS: BP 102/51; PULSE 68; RESP 16; TEMP 36.9; O2SAT 93
[2023-02-28] MEDS: FLUCONAZOLE 150 MG TABLET PO (19:46)
--- NOTE | 2023-02-28 20:01 | PN_ITS ---
Subjective Subjective Patient seen, examined. She appears happy, and has no new complaints. Her urine culture grew > 100,000 pansensitive E. Coli, will treat as urinary tract infection. Objective Data Objective Data Vital Signs: Vital Signs Temp Pulse Resp BP Pulse Ox O2 Del Method 98.4 F 68 16 102/51 L 93 Room Air 02/28/23 19:23 02/28/23 19:23 02/28/23 19:23 02/28/23 19:23 02/28/23 19:23 02/28/23 19:23 Oxygen Delivery Method Room Air Weight: 58.1 kg Body Mass Index (BMI) 20.7 Intake & Output: Intake and Output for Last 24 Hours 02/26/23 02/27/23 02/28/23 23:59 23:59 23:59 Intake Total 780 / 780 1060 / 1060 420 / 420 Output Total 1205 / 1205 1175 / 1175 600 / 600 Balance -425 / -425 -115 / -115 -180 / -180 Lab / Micro Data Result Diagrams: 02/19/23 06:40 02/23/23 05:43 Micro: Microbiology 02/26/23 03:40 Urine Catheter - Catheter Urine Culture - Final Escherichia coli 02/20/23 13:15 Urine Catheter - Catheter Urine Culture - Final Culture exhibits no growth. Physical Exam Const alert General Appearance: cooperative HEENT normocephalic Eyes PERRL and EOMs intact bilaterally Neck supple, no JVD and no carotid bruits Resp normal respiratory effort, normal air movement and clear to auscultation bilaterally Cardio regular rate and regular rhythm GI normal to inspection, nondistended, normoactive bowel sounds, non-tender and non-distended Extremity normal capillary refill General Extremity: Negative for edema Skin no rashes or lesions noted General Skin Exam: no breakdown Psych affect normal Appearance: appropriate Assessment & Plan Assessment/Plan (1) Debility: (2) Intraparenchymal hemorrhage of brain: (3) Depression: (4) Diplopia: (5) Glioma of frontal lobe: (6) Hemangioblastoma of brain: (7) Sixth cranial nerve palsy: (8) Ataxia: (9) Expressive aphasia: (10) Asthma: (11) Hypothyroidism: PLAN: Plan 62 year old female with below past medical history significant for brain cancer, hospitalized for intracerebral hemorrhage, admitted to with debility, here for 3 hours daily rehabilitation, strengthening, prior to discharge home with . * Debility - PT/OT. * Expressive aphasia - ST. * Pain - Tylenol 650mg q6h prn. * Bowel - senna/colace 2 tablets bid, Dulcolax 10mg pr x 1 prn, MOM 30ml po x 1 prn. * Somnolence - Nuvigil 250mg daily. * E. Coli urinary tract infection - Cipro 500mg bid thru 03/07/2023. * Depression - Lexapro. * Yeast Vaginitis - Fluconazole 150mg po x 1 dose. * Hypothyroidism - Levothyroxine 25mcg daily. Capacity Capacity Assessment Tool Can the patient make a choice & communicate that choice?: No Can the patient understand benefits, risks and alternatives?: No Can the patient make a logical, rational choice?: No Is the choice the patient makes consistent w/ their values?: No Is there an impending, emergent risk to the patient?: No Does the patient have an Advance Directive?: No Is there a Surrogate Available?: Yes i.e. HCPOA: Yes i.e. close relative (spouse, child, parent, sibling)?: Yes
[2023-02-28 22:00] VITALS: PULSE 68; RESP 16; O2SAT 93
[2023-02-28] MEDS: Senna/Docusate Sodium 1 Tablet 2 TABLET PO (22:33)
[2023-03-01] MEDS: Levothyroxine 25 MCG TABLET PO (06:16)
[2023-03-01 07:27] VITALS: BP 118/48; PULSE 16; RESP 16; TEMP 36.4; O2SAT 94
--- NOTE | 2023-03-01 08:28 | PN.TCU_ITS ---
Subjective Subjective Patient seen, examined, she had uneventful night, vital signs stable. She is happy this morning, no new problems, concerns, issues, complaints. I asked about her and she made a grumpy face. I reassured her he is only worried about her. Objective Data Objective Data Vital Signs: Vital Signs Temp Pulse Resp BP Pulse Ox O2 Del Method 97.6 F L 16 L 16 118/48 L 94 Room Air 03/01/23 07:27 03/01/23 07:27 03/01/23 07:27 03/01/23 07:27 03/01/23 07:27 03/01/23 07:27 Oxygen Delivery Method Room Air Weight: 58.1 kg Body Mass Index (BMI) 20.7 Intake & Output: Intake and Output for Last 24 Hours 02/27/23 02/28/23 03/01/23 23:59 23:59 23:59 Intake Total 1060 / 1060 420 / 420 200 / 200 Output Total 1175 / 1175 775 / 775 400 / 400 Balance -115 / -115 -355 / -355 -200 / -200 Lab / Micro Data Result Diagrams: 02/19/23 06:40 02/23/23 05:43 Micro: Microbiology 02/26/23 03:40 Urine Catheter - Catheter Urine Culture - Final Escherichia coli 02/20/23 13:15 Urine Catheter - Catheter Urine Culture - Final Culture exhibits no growth. Physical Exam Const alert General Appearance: cooperative HEENT normocephalic Eyes PERRL and EOMs intact bilaterally Eyes Narrative: Left eye patch. 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 * Debility - PT/OT. * Expressive aphasia - ST. * Pain - Tylenol 650mg q6h prn. * Bowel - senna/colace 2 tablets bid, Dulcolax 10mg pr x 1 prn, MOM 30ml po x 1 prn. * Somnolence - Nuvigil 250mg daily. * E. Coli urinary tract infection - Cipro 500mg bid thru 03/07/2023. * Depression - Lexapro. * Yeast Vaginitis - Fluconazole 150mg po x 1 dose. * Hypothyroidism - Levothyroxine 25mcg daily. Capacity Capacity Assessment Tool Can the patient make a choice & communicate that choice?: No Can the patient understand benefits, risks and alternatives?: No Can the patient make a logical, rational choice?: No Is the choice the patient makes consistent w/ their values?: No Is there an impending, emergent risk to the patient?: No Does the patient have an Advance Directive?: No Is there a Surrogate Available?: Yes i.e. HCPOA: Yes i.e. close relative (spouse, child, parent, sibling)?: Yes
--- NOTE | 2023-03-01 09:48 | PN_ITS ---
Subjective Subjective Patient seen, examined, she had uneventful night, vital signs stable.? She is happy this morning, no new problems, concerns, issues, complaints.? I asked about her and she made a grumpy face.? I reassured her he is only worried about her. Objective Data Objective Data Vital Signs: Vital Signs Temp Pulse Resp BP Pulse Ox O2 Del Method 97.6 F L 16 L 16 118/48 L 94 Room Air 03/01/23 07:27 03/01/23 07:27 03/01/23 07:27 03/01/23 07:27 03/01/23 07:27 03/01/23 07:27 Oxygen Delivery Method Room Air Weight: 58.1 kg Body Mass Index (BMI) 20.7 Intake & Output: Intake and Output for Last 24 Hours 02/27/23 02/28/23 03/01/23 23:59 23:59 23:59 Intake Total 1060 / 1060 420 / 420 200 / 200 Output Total 1175 / 1175 775 / 775 400 / 400 Balance -115 / -115 -355 / -355 -200 / -200 Lab / Micro Data Result Diagrams: 02/19/23 06:40 02/23/23 05:43 Micro: Microbiology 02/26/23 03:40 Urine Catheter - Catheter Urine Culture - Final Escherichia coli 02/20/23 13:15 Urine Catheter - Catheter Urine Culture - Final Culture exhibits no growth. Physical Exam Const alert General Appearance: cooperative HEENT normocephalic HEENT Narrative: Eye patch OS. Eyes PERRL and EOMs intact bilaterally Eyes Narrative: Left eye patch. 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 * Debility - PT/OT. * Expressive aphasia - ST. * Pain - Tylenol 650mg q6h prn. * Bowel - senna/colace 2 tablets bid, Dulcolax 10mg pr x 1 prn, MOM 30ml po x 1 prn. * Somnolence - Nuvigil 250mg daily. * E. Coli urinary tract infection - Cipro 500mg bid thru 03/07/2023. * Depression - Lexapro. * Yeast Vaginitis - Fluconazole 150mg po x 1 dose. * Hypothyroidism - Levothyroxine 25mcg daily. Capacity Capacity Assessment Tool Can the patient make a choice & communicate that choice?: No Can the patient understand benefits, risks and alternatives?: No Can the patient make a logical, rational choice?: No Is the choice the patient makes consistent w/ their values?: No Is there an impending, emergent risk to the patient?: No Does the patient have an Advance Directive?: No Is there a Surrogate Available?: Yes i.e. HCPOA: Yes i.e. close relative (spouse, child, parent, sibling)?: Yes
[2023-03-01] MEDS: Escitalopram Oxalate 10 MG Tablet 5 MG PO (10:08)
[2023-03-01] MEDS: Ciprofloxacin 500 MG Tablet PO ×2 (10:09→20:01)
[2023-03-01 19:23] VITALS: BP 109/49; PULSE 74; RESP 16; TEMP 36.7; O2SAT 95
[2023-03-01 19:45] VITALS: PULSE 74; RESP 16; O2SAT 95
[2023-03-02 06:00] VITALS: BMI 20.8
[2023-03-02] MEDS: Levothyroxine 25 MCG TABLET PO (06:33)
--- NOTE | 2023-03-02 08:33 | DS.PCM_ITS ---
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): C71.1 - Malignant neoplasm of frontal lobe (6) Hemangioblastoma of brain: Status: Acute Code(s): D43.2 - Neoplasm of uncertain behavior of brain, unspecified (7) Sixth cranial nerve palsy: Status: Acute Code(s): H49.20 - Sixth [abducent] nerve palsy, unspecified eye (8) Ataxia: Status: Acute Code(s): R27.0 - Ataxia, unspecified (9) Expressive aphasia: Status: Acute Code(s): R47.01 - Aphasia (10) Asthma: Status: Acute Code(s): J45.909 - Unspecified asthma, uncomplicated (11) Hypothyroidism: Status: Acute Code(s): E03.9 - Hypothyroidism, unspecified Plan 62 year old female with below past medical history significant for brain cancer, hospitalized for intracerebral hemorrhage, admitted to with debility, here for 3 hours daily rehabilitation, strengthening, prior to discharge home with . * Debility - PT/OT. * Expressive aphasia - ST. * Pain - Tylenol 650mg q6h prn. * Bowel - senna/colace 2 tablets bid, Dulcolax 10mg pr x 1 prn, MOM 30ml po x 1 prn. * Somnolence - Nuvigil 250mg daily. * E. Coli urinary tract infection - Cipro 500mg bid thru 03/07/2023. * Depression - Lexapro. * Yeast Vaginitis - Fluconazole 150mg po x 1 dose. * Hypothyroidism - Levothyroxine 25mcg daily. Medications at Discharge Home Medications escitalopram oxalate 5 mg tablet (Lexapro) 5 mg PO DAILY mood 05/05/23 armodafinil 200 mg tablet (Nuvigil) 200 mg PO DAILY@0600 3 days #3 tabs 03/02/23 armodafinil 50 mg tablet (Nuvigil) 50 mg PO DAILY@0600 3 days #3 tabs 03/02/23 levothyroxine 25 mcg tablet 25 mcg PO DAILY@0600 #0 tabs 03/02/23 Hospital Course Operations None Procedures None Summary of Care Provided Minutes Spent on Discharge: 35 Hospital Course: 62 year old female with below past medical history significant for brain cancer, hospitalized for intracerebral hemorrhage, admitted to with debility, here for 3 hours daily rehabilitation, strengthening, prior to discharge home with . Discharge to [facility] 03/03/2023, Skilled. Physical Exam Const alert General Appearance: cooperative HEENT normocephalic HEENT Narrative: Eye patch OS. Eyes PERRL and EOMs intact bilaterally Neck supple, no JVD and no carotid bruits Resp normal respiratory effort, normal air movement and clear to auscultation bilaterally Cardio regular rate and regular rhythm GI normal to inspection, nondistended, normoactive bowel sounds, non-tender and non-distended Extremity normal capillary refill General Extremity: Negative for edema Skin no rashes or lesions noted General Skin Exam: no breakdown Psych affect normal Appearance: appropriate Weight / BMI Weight Weight: 58.1 kg Body Mass Index (BMI) 20.7 ABG / Lab / Microbiology Data Result Diagrams: 02/19/23 06:40 02/23/23 05:43 Microbiology: Microbiology 02/26/23 03:40 Urine Catheter - Catheter Urine Culture - Final Escherichia coli 02/20/23 13:15 Urine Catheter - Catheter Urine Culture - Final Culture exhibits no growth. Indicators for Scoring Admitted with or Primary Diagnosis of CVA/Stroke: Yes Hx of CVA/Stroke: No Modified [place] Score MRS Score at time of Evaluation: 4-Moderate/severe disability D/C Instructions Discharge Diet: No restrictions Discharge Activity: Return to Normal Activity, May Shower and Use Walker Weight Bearing Status: Weight bearing as tolerated Call your doctor if you observe: Fever of 101 or Higher, Inability to urinate, Inability to have a bowel movement, Shortness of breath, Dizziness, Fainting spells, Swelling in the ankles, Chest pain and Uncontrolled pain Additional Instructions: Discharge to [facility] 03/03/2023, Skilled. Meaningful Use Info Meaningful Use Diagnoses (Choose all that apply): Hemorrhagic CVA CVA Therapy Assessed for PT,OT and/or ST?: Yes Discharge Plan Admission Admit Date/Time: 02/18/23 13:00 Primary Reason for Your Visit: Debility. Attending Provider: Cathy Caro Primary Care Provider: Care Physician,No Primary Instructions Additional Instructions / Restrictions: Discharge to [facility] 03/03/2023, Skilled. Discharge Orders/Prescriptions Prescriptions: New levothyroxine 25 mcg Tablet 25 mcg PO DAILY@0600 Qty: 0 0RF armodafinil [Nuvigil] 50 mg Tablet 50 mg PO DAILY@0600 3 Days Qty: 3 0RF armodafinil [Nuvigil] 200 mg Tablet 200 mg PO DAILY@0600 3 Days Qty: 3 0RF Continued escitalopram oxalate [Lexapro] 5 mg Tablet 5 mg PO DAILY Discontinued armodafinil 250 mg Tablet 250 mg PO DAILY Referrals / Follow Up: Dr Jacob Ashford-Neuro [Other] Care Physician,No Primary [Primary Care Provider] - Disposition Disposition (needs filled in before D/C Order can be placed): Long-Term Facility
--- NOTE | 2023-03-02 08:39 | TREXTCAR_ITS ---
Diet Diet Order/Speech Therapy: 02/18/23 15:22 Diet: Regular - General Routine Orders/Code Status Code Status: Full Code Therapies Weight Bearing: Weight bearing as tolerated Extremity Affected:: Bilateral Lower Physical Therapy: Eval and Treat Occupational Therapy: Eval and Treat Speech Therapy: Eval and Treat Problem/Diagnosis (1) Debility: Status: Acute Code(s): R53.81 - Other malaise (2) Intraparenchymal hemorrhage of brain: Status: Acute Code(s): I61.9 - Nontraumatic intracerebral hemorrhage, unspecified Comment: Posterior inferior right roge (3) Depression: Status: Acute Code(s): F32.A - Depression, unspecified (4) Diplopia: Status: Acute Code(s): H53.2 - Diplopia (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 Has had gamma knife radiosurgery in April 2022 (7) Sixth cranial nerve palsy: Status: Acute Code(s): H49.20 - Sixth [abducent] nerve palsy, unspecified eye Comment: new (8) Ataxia: Status: Acute Code(s): R27.0 - Ataxia, unspecified (9) Expressive aphasia: Status: Acute Code(s): R47.01 - Aphasia (10) Asthma: Status: Acute Code(s): J45.909 - Unspecified asthma, uncomplicated (11) Hypothyroidism: Status: Acute Code(s): E03.9 - Hypothyroidism, unspecified Plan 62 year old female with below past medical history significant for brain cancer, hospitalized for intracerebral hemorrhage, admitted to with debility, here for 3 hours daily rehabilitation, strengthening, prior to discharge home with . * Debility - PT/OT. * Expressive aphasia - ST. * Pain - Tylenol 650mg q6h prn. * Bowel - senna/colace 2 tablets bid, Dulcolax 10mg pr x 1 prn, MOM 30ml po x 1 prn. * Somnolence - Nuvigil 250mg daily. * E. Coli urinary tract infection - Cipro 500mg bid thru 03/07/2023. * Depression - Lexapro. * Yeast Vaginitis - Fluconazole 150mg po x 1 dose. * Hypothyroidism - Levothyroxine 25mcg daily. Allergies/Procedures Done in Hospital Allergies Penicillins Allergy (Verified 02/18/23 15:21) Hives Procedures: None Type of Care/Length of Stay Estimated LOS: Convalescent Care Less Than 30 days Type of Care Needed: Skilled Rehab Potential: Fair Prognosis: Fair Additional Orders/Day of Discharge Day of Discharge: 03/03/23 Dietary and Speech Recommendations Dietitian Recommendations/Changes: Continue liberal regular diet as ordered Monitor need for ONS pending continued po intake and wt trends. Discharge Plan Admission Admit Date/Time: 02/18/23 13:00 Primary Reason for Your Visit: Debility. Attending Provider: Cathy Caro Primary Care Provider: Care Physician,No Primary Instructions Additional Instructions / Restrictions: Discharge to [facility] 03/03/2023, Skilled. Discharge Orders/Prescriptions Prescriptions: New levothyroxine 25 mcg Tablet 25 mcg PO DAILY@0600 Qty: 0 0RF armodafinil [Nuvigil] 50 mg Tablet 50 mg PO DAILY@0600 3 Days Qty: 3 0RF armodafinil [Nuvigil] 200 mg Tablet 200 mg PO DAILY@0600 3 Days Qty: 3 0RF Continued escitalopram oxalate [Lexapro] 5 mg Tablet 5 mg PO DAILY Discontinued armodafinil 250 mg Tablet 250 mg PO DAILY Referrals / Follow Up: Dr Jacob Ashford-Neuro [Other] Care Physician,No Primary [Primary Care Provider] - Disposition Disposition (needs filled in before D/C Order can be placed): [facility]
[2023-03-02] MEDS: Escitalopram Oxalate 10 MG Tablet 5 MG PO (08:56)
[2023-03-02] MEDS: Ciprofloxacin 500 MG Tablet PO ×2 (08:56→20:01)
[2023-03-02 09:01] VITALS: BP 101/61; PULSE 61; RESP 16; TEMP 36.6; O2SAT 93
[2023-03-02 19:21] VITALS: BP 101/60; PULSE 51; RESP 14; TEMP 36.3; O2SAT 95
[2023-03-02 19:45] VITALS: PULSE 51; RESP 14
[2023-03-03] MEDS: Levothyroxine 25 MCG TABLET PO (06:11)
[2023-03-03 08:23] VITALS: BP 117/58; PULSE 87; RESP 17; TEMP 36.9; O2SAT 95
[2023-03-03] MEDS: Ciprofloxacin 500 MG Tablet PO (08:53)
[2023-03-03] MEDS: Escitalopram Oxalate 10 MG Tablet 5 MG PO (08:53)
--- NOTE | 2023-03-03 09:30 | NURSING ---
Report called to [facility], spoke with nurse Nancy
== END 2023-03-03 11:08 | DRG 57 ==
PROVIDERS: Admitting Provider Internal Medicine; Referring Provider Internal Medicine; Visit Provider Internal Medicine
DX: I69.193 Ataxia following nontraumatic intracerebral hemorrhage (principal); C71.1 Malignant neoplasm of frontal lobe; R47.01 Aphasia; N39.0 Urinary tract infection, site not specified; H49.21 Sixth [abducent] nerve palsy, right eye; B96.20 Unspecified Escherichia coli [E. coli] as the cause of diseases classified elsewhere; G47.33 Obstructive sleep apnea (adult) (pediatric); E03.9 Hypothyroidism, unspecified; J45.909 Unspecified asthma, uncomplicated; K21.9 Gastro-esophageal reflux disease without esophagitis; F32.A Depression, unspecified; R27.0 Ataxia, unspecified; B37.31 Acute candidiasis of vulva and vagina; Z92.3 Personal history of irradiation; Z79.899 Other long term (current) drug therapy; Z79.890 Hormone replacement therapy
CPT/HCPCS: 36415; 74018; 80048; 80053; 81001; 82533; 83735; 84100; 84439; 84443; 85025; 87077; 87086; 87088; 87186; 92507; 92610; 94668; 96105; 97110; 97112; 97116; 97162; 97165; 97530; 97535; 97802; 97803; 99252; G0463